=== PATIENT | male | born 1960 | race African-American/Black ===

== ENCOUNTER 2017-04-14 20:29 | Inpatient (IN) | payer OTHER ==
--- NOTE | 2017-04-14 20:42 | PDOC ---
History of Present Illness - General History Source: Patient Exam Limitations: No Limitations - History of Present Illness Initial Comments: 04/14/17 21:27 The patient is a 56 year old male with a significant past medical history of HTN , asthma, who presents to the ED with chest discomfort, and general malaise that began earlier today. 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 Patient states he hasn't been hydrating himself. Patient denies SOB, headache, fever, chills, nausea, vomiting, diarrhea, hematochezia. He denies dysuria, hematuria, frequency. Patient denies smoking cigarettes, drinking alcohol, drug usage. <Yannick Farfan - Last Filed: 04/14/17 21:27> <Cathy Guadalupe - Last Filed: 04/15/17 03:58> - General Stated Complaint: CHEST PAIN Time Seen by Provider: 04/14/17 20:41 Past History <Yannick Farfan - Last Filed: 04/14/17 21:27> - Past Medical History Asthma: Yes HTN: Yes - Immunization History Immunization Up to Date: Yes - Suicide/Smoking/Psychosocial Hx Smoking Status: No Smoking History: Never smoked Number of Cigarettes Smoked Daily: 0 Hx Alcohol Use: Yes Drug/Substance Use Hx: No Substance Use Type: None <Cathy Guadalupe - Last Filed: 04/15/17 03:58> - Past Medical History Allergies/Adverse Reactions: Allergies Allergy/AdvReac Type Severity Reaction Status Date / Time No Known Allergies Allergy Verified 04/14/17 20:56 Home Medications: Ambulatory Orders Amlodipine Besylate [Norvasc -] 10 mg PO DAILY #30 tablet 05/06/16 Review of Systems - Review of Systems Able to Perform ROS?: Yes Comments:: 04/14/17 21:27 GENERAL/CONSTITUTIONAL: + general malaise. No fever or chills. HEAD, EYES, EARS, NOSE AND THROAT: No change in vision. No ear pain or discharge. No sore throat. CARDIOVASCULAR: + chest pain. No shortness of breath. RESPIRATORY: No cough, wheezing, or hemoptysis. GASTROINTESTINAL: No nausea, vomiting, diarrhea or constipation. GENITOURINARY: No dysuria, frequency, or change in urination. MUSCULOSKELETAL: No joint or muscle swelling or pain. No neck or back pain. SKIN: No rash NEUROLOGIC: No headache, vertigo, loss of consciousness, or change in strength/ sensation. ENDOCRINE: No increased thirst. No abnormal weight change. HEMATOLOGIC/LYMPHATIC: No anemia, easy bleeding, or history of blood clots. ALLERGIC/IMMUNOLOGIC: No hives or skin allergy. <Yannick Farfan - Last Filed: 04/14/17 21:27> *Physical Exam - Vital Signs Last Vital Signs Temp Pulse Resp BP Pulse Ox 97.9 F 88 18 134/79 97 04/14/17 20:57 04/14/17 20:57 04/14/17 20:57 04/14/17 20:57 04/14/17 20:57 - Physical Exam Comments: 04/14/17 21:28 GENERAL: Awake, alert, and fully oriented, in no acute distress. Obese. Red and flush. HEAD: No signs of trauma EYES: PERRLA, EOMI, sclera anicteric, conjunctiva clear ENT: Auricles normal inspection, hearing grossly normal, nares patent, oropharynx clear without exudates. Moist mucosa NECK: Normal ROM, supple, no lymphadenopathy, JVD, or masses LUNGS: Breath sounds equal, clear to auscultation bilaterally. No wheezes, and no crackles HEART: irregularly irregular. tachycardia. normal S1 and S2, no murmurs, rubs or gallops ABDOMEN: Soft, nontender, normoactive bowel sounds. No guarding, no rebound. No masses EXTREMITIES: Normal range of motion, no edema. No clubbing or cyanosis. No cords, erythema, or tenderness NEUROLOGICAL: Cranial nerves II through XII grossly intact. Normal speech, normal gait SKIN: Warm, Dry, normal turgor, no rashes or lesions noted. <Yannick Farfan - Last Filed: 04/14/17 21:27> ED Treatment Course - LABORATORY CBC & Chemistry Diagram: 04/14/17 21:05 04/14/17 21:05 - ADDITIONAL ORDERS Additional order review: Laboratory Results 04/14/17 04/14/17 21:05 21:05 PT with INR 12.00 H INR 1.09 Sodium Cancelled Potassium Cancelled Chloride Cancelled Carbon Dioxide Cancelled Anion Gap Cancelled BUN Cancelled Creatinine Cancelled Creat Clearance w eGFR Cancelled Random Glucose Cancelled Calcium Cancelled Total Bilirubin Cancelled AST Cancelled ALT Cancelled Alkaline Phosphatase Cancelled Total Protein Cancelled Albumin Cancelled Total Amylase Cancelled Lipase Cancelled 04/14/17 21:05 RBC 4.93 MCV 87.4 MCHC 33.2 RDW 14.3 MPV 10.6 Neutrophils % 81.4 Lymphocytes % 11.8 D Monocytes % 6.2 Eosinophils % 0.4 D Basophils % 0.2 - Medications Given in the ED: ED Medications Discontinued Medications Generic Name Dose Route Start Last Admin Trade Name Tawanna PRN Reason Stop Dose Admin Diltiazem HCl 10 mg 04/14/17 20:59 04/14/17 21:04 Cardizem Injection - IVPUSH 04/14/17 21:00 10 mg ONCE ONE Administration Sodium Chloride 1,000 ml 04/14/17 21:12 04/14/17 21:04 Normal Saline - IV 04/14/17 21:13 1,000 ml ONCE ONE Administration <Yannick Farfan - Last Filed: 04/14/17 21:27> - LABORATORY CBC & Chemistry Diagram: 04/14/17 21:05 04/14/17 22:11 <Cathy Guadalupe - Last Filed: 04/15/17 03:58> Medical Decision Making - Medical Decision Making 04/14/17 22:43 Pt comes with new onset rapid afib. States that he started to have MSCP today; he was out in the sun 90degree weather, as he is a youth motorcoach driver. Pt states that he has been feeling unwell all weak, and it is unclear how long he has been in afib. He takes amlodipine for HTN 10 mg daily and he is compliant with the meds. He has no fever or chills, no SOB, though he has asthma and he is asking for duoneb. He has clear lungs and he has excellent pulsox and no wheezing. 04/15/17 03:57 Pt will be admitted for rapid afib. He has +trop and elevated CPK I treated with heparin, asa and plavix. Repeat EKG shows no STEMI, Pt will go to telemetry for further eval. <Cathy Guadalupe - Last Filed: 04/15/17 03:58> *DC/Admit/Observation/Transfer - Attestations Scribe Attestion: 04/14/17 21:28. Documentation prepared by Yannick Farfan, acting as medical technologist clinical for Cathy Guadalupe MD. <Yannick Farfan - Last Filed: 04/14/17 21:27> - Discharge Dispostion Admit: Yes <Cathy Guadalupe - Last Filed: 04/15/17 03:58> Diagnosis at time of Disposition: New onset atrial fibrillation - Discharge Dispostion Disposition: HOME Condition at time of disposition: Stable - Patient Instructions
[2017-04-14 20:59] VITALS: TEMP 97.9
[2017-04-14] MEDS ORDERED: dilTIAZem HCL 50 MG/10 ML - 10 ML VIAL IVPUSH ONE (20:59)
[2017-04-14 21:11] LABS: BASOPHIL 0.2 % (0-2.0); EOSINOPHIL 0.4 % (0-4.5); MCHC 33.2 g/dl (32.0-35.9); MEAN CELL VOLUME 87.4 fl (80-96); MEAN PLT VOLUME 10.6 fl (7.5-11.1); NEUTROPHILS 81.4 % (42.8-82.8); PLATELET COUNT 197 K/MM3 (134-434); RDW 14.3 % (11.9-15.9); WHITE BLOOD COUNT 9.9 K/mm3 (4.0-10.0)
[2017-04-14] MEDS ORDERED: SODIUM CHLORIDE 0.9% 500 ML INFUS.BAG IV ONE (21:12)
[2017-04-14 21:21] LABS: INR 1.09 (0.82-1.09)
[2017-04-14] MEDS ORDERED: ALBUTEROL SO4 2.5/IPRATROPIUM 0.5 INH SOL 3 ML VIAL.NEB. NEB ONE (22:15)
[2017-04-14] MEDS ORDERED: ALBUTEROL SO4 0.083% IH SOL 2.5 MG/3 ML VIAL.NEB. NEB ONE (22:21)
[2017-04-14 22:23] LABS: URINE MARIJUANA THC NEGATIVE ng/ml (CUTOFF=50)
[2017-04-14 22:39] LABS: ALBUMIN 3.9 g/dl (3.4-5.0); ANION GAP 8 (8-16); BILIRUBIN,TOTAL 0.5 mg/dL (0.2-1.0); CALCIUM 8.7 mg/dL (8.5-10.1); CO2 25 mmol/L (21-32); GLUCOSE,RANDOM 98 mg/dL (74-106); SGOT/AST 47 U/L (15-37); SGPT/ALT 75 U/L (12-78); TOT PROT 7.5 g/dl (6.4-8.2)
[2017-04-14 22:51] LABS: ALK PHOS 74 U/L (45-117); CPK 1129 IU/L (39-308); TROPONIN I 0.14 ng/ml (0.00-0.05)
[2017-04-14] MEDS ORDERED: HEPARIN NA (PORCINE) 5,000 UNITS/ML 1ML VIAL IVPUSH PRN ×2 (23:10)
[2017-04-14] MEDS ORDERED: ASPIRIN 81 MG CHEWABLE TABLETS PO ONE (23:11)
[2017-04-14] MEDS ORDERED: CLOPIDOGREL BISULFATE 300 MG TABLET PO ONE (23:11)
[2017-04-14] MEDS ORDERED: HEPARIN INFUSION - 500 ML IVPB SCH (23:15)
[2017-04-14] MEDS ORDERED: HEPARIN NA (PORCINE) 5,000 UNITS/ML 1ML VIAL ONE (23:19)
[2017-04-14] MEDS ORDERED: HEPARIN INFUSION - 500 ML IVPB ONE (23:19)
[2017-04-14] MEDS ORDERED: ASPIRIN 81 MG CHEWABLE TABLETS ONE (23:19)
[2017-04-14] MEDS ORDERED: CLOPIDOGREL BISULFATE 300 MG TABLET ONE (23:19)
--- NOTE | 2017-04-14 23:22 | HP ---
CHIEF COMPLAINT: " Dizziness and chest pain " PCP: None HISTORY OF PRESENT ILLNESS: Patient is a 56 year old male with significant Past Medical History of asthma , Hypertension(non compliant with meds), presented to the ED with the chief complaint of dizziness and chest pain. As per the patient, he has been experiencing dizziness for the past several weeks that has gotten worse for the past week. Patient also complaints of chest pain x 2 days, located on the left side, non radiating, 5/10 in intensity, pressure type, associated with palpitation, not associated with tingling or numbness. Patient didn't seek any medical attention and didn't take any medications. 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 His friend mentions he witnessed it, patient didn't hit his head or loose consciousness. EMT arrived at the site and brought him to the ED for further evaluation. Denies sob, cough, abdominal pain, nausea or vomiting. No headache, vertigo or trauma. Bowel/Bladder habit normal. Sleep/Appetite normal. 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 Social History: Smoking: Former smoker, quit 28 years ago Alcohol: Denies Drugs: Denies Family History: Unknown Allergies No Known Allergies Allergy (Verified 04/14/17 20:56) HOME MEDICATIONS: Home Medications Medication Instructions Recorded Amlodipine Besylate [Norvasc -] 10 mg PO DAILY #30 tablet 05/06/16 REVIEW OF SYSTEMS CONSTITUTIONAL: Absent: fever, chills, diaphoresis, generalized weakness, malaise, loss of appetite, weight change HEENT: Absent: rhinorrhea, nasal congestion, throat pain, throat swelling, difficulty swallowing, mouth swelling, ear pain, eye pain, visual changes CARDIOVASCULAR: Absent: chest pain, syncope, palpitations, irregular heart rate, lightheadedness , peripheral edema RESPIRATORY: Absent: cough, shortness of breath, dyspnea with exertion, orthopnea, wheezing, stridor, hemoptysis GASTROINTESTINAL: Absent: abdominal pain, abdominal distension, nausea, vomiting, diarrhea, constipation, melena, hematochezia GENITOURINARY: Absent: dysuria, frequency, urgency, hesitancy, hematuria, flank pain, genital pain MUSCULOSKELETAL: Absent: myalgia, arthralgia, joint swelling, back pain, neck pain SKIN: Absent: rash, itching, pallor HEMATOLOGIC/IMMUNOLOGIC: Absent: easy bleeding, easy bruising, lymphadenopathy, frequent infections ENDOCRINE: Absent: unexplained weight gain, unexplained weight loss, heat intolerance, cold intolerance NEUROLOGIC: Absent: headache, focal weakness or paresthesias, dizziness, unsteady gait, seizure, mental status changes, bladder or bowel incontinence PSYCHIATRIC: Absent: anxiety, depression, suicidal or homicidal ideation, hallucinations. PHYSICAL EXAMINATION Vital Signs - 24 hr 04/14/17 04/14/17 04/14/17 20:35 20:57 22:00 Temperature 97.9 F Pulse Rate 88 Pulse Rate [ 94 H Apical] Respiratory 18 20 Rate Blood Pressure 134/79 Blood Pressure 142/97 [Left Arm] O2 Sat by Pulse 100 97 98 Oximetry (%) GENERAL: Patient is sitting comfortably, Awake, alert, and fully oriented, in no acute distress. HEAD: Normal with no signs of trauma. EYES: EOM intact, no pallor or icterus. No nystagmus. EARS, NOSE, THROAT: Ears normal. Moist mucous membranes. NECK: Supple. LUNGS: Breath sounds equal, clear to auscultation bilaterally. No wheezes, and no crackles. HEART: Irregularly irregular,normal S1 and S2 without murmur. ABDOMEN: Soft, nontender, not distended, normoactive bowel sounds, no guarding, no rebound, no masses. No hepatomegaly or splenomegaly. MUSCULOSKELETAL: Normal range of motion at all joints. No bony deformities or tenderness. No CVA tenderness. UPPER EXTREMITIES: 2+ pulses, warm, well-perfused. No cyanosis. No clubbing. No peripheral edema. LOWER EXTREMITIES: 2+ pulses, warm, well-perfused. No calf tenderness. No peripheral edema. NEUROLOGICAL: No facial droop, power 5/5 in all extremities normal, reflexes intact, Cranial nerves II-XII intact. Normal speech. Gait not observed. PSYCHIATRIC: Cooperative. Good eye contact. Appropriate mood and affect. SKIN: Warm, dry, normal turgor, no rashes or lesions noted, normal capillary refill. Laboratory Results - last 24 hr 04/14/17 04/14/17 04/14/17 21:05 21:05 21:05 WBC 9.9 RBC 4.93 Hgb 14.3 Hct 43.1 MCV 87.4 MCH 29.0 MCHC 33.2 RDW 14.3 Plt Count 197 MPV 10.6 Neutrophils % 81.4 Lymphocytes % 11.8 D Monocytes % 6.2 Eosinophils % 0.4 D Basophils % 0.2 PT with INR 12.00 H INR 1.09 Sodium Cancelled Potassium Cancelled Chloride Cancelled Carbon Dioxide Cancelled Anion Gap Cancelled BUN Cancelled Creatinine Cancelled Creat Clearance w eGFR Cancelled Random Glucose Cancelled Calcium Cancelled Total Bilirubin Cancelled AST Cancelled ALT Cancelled Alkaline Phosphatase Cancelled Creatine Kinase Troponin I Total Protein Cancelled Albumin Cancelled Total Amylase Cancelled Lipase Cancelled Opiates Screen Methadone Screen Barbiturate Screen Phencyclidine Screen Ur Amphetamines Screen MDMA (Ecstasy) Screen Benzodiazepines Screen Cocaine Screen U Marijuana (THC) Screen 04/14/17 04/14/17 22:11 22:11 WBC RBC Hgb Hct MCV MCH MCHC RDW Plt Count MPV Neutrophils % Lymphocytes % Monocytes % Eosinophils % Basophils % PT with INR INR Sodium 140 Potassium 3.9 Chloride 107 Carbon Dioxide 25 Anion Gap 8 BUN 11 D Creatinine 1.0 Creat Clearance w eGFR > 60 Random Glucose 98 D Calcium 8.7 Total Bilirubin 0.5 D AST 47 H D ALT 75 D Alkaline Phosphatase 74 Creatine Kinase 1129 H Troponin I 0.14 H D Total Protein 7.5 Albumin 3.9 Total Amylase Lipase Opiates Screen Negative Methadone Screen Negative Barbiturate Screen Negative Phencyclidine Screen Negative Ur Amphetamines Screen Negative MDMA (Ecstasy) Screen Negative Benzodiazepines Screen Negative Cocaine Screen Negative U Marijuana (THC) Screen Negative ASSESSMENT/PLAN: Patient is a 56 year old male with significant Past Medical History of asthma , Hypertension(non compliant with meds), presented to the ED with the chief complaint of dizziness and chest pain. # New onset atrial fibrillation- now rate controlled presented with chest pain and palpitation EKG done in the ED showed Atrial fibrillation, rate 123 bpm CHADsVASc score of 1, continue Aspirin tomorrow, already received 162 mg of Aspirin in the ED today. Tele/obs Continous cardiac monitoring Cardizem 30mg PO TID for rate control Cardiology consult requested Had NSTEMI in the past, 2015 # Pre-syncope Most likely secondary to dehydration Presented with dizziness since a couple of weeks, was at a football game and nearly fainted. Admitted in Tele/obs IV NS @ 83mls/hr ECHO in the morning TSH, A1c, lipid panel, repeat electrolytes in am. # Elevated troponin likely due to demand ischemia secondary to atrial fibrillation However would like to r/o ACS Troponin 0.14---> repeat at 6am Heparin drip started in the ED, will stop if second troponin is trending down # Hypertension hold Amlodipine 10mg, on cardizem now for rate control # FEN IV NS @ 83mls/hr Electrolytes WNL Sodium controlled diet # Prophylaxis For DVT: Already on Heparin Drip For GI: Not indicated # Code Status: Full code # Dispo: Admitted in Tele/obs. Duration of stay likely 1-2 days. Illness, Investigation and Plan of care explained to the patient. He verbalized understanding. Case seen and discussed with Dr. Suh. Visit type - Emergency Visit Emergency Visit: Yes ED Registration Date: 04/14/17 Care time: The patient presented to the Emergency Department on the above date and was hospitalized for further evaluation of their emergent condition. - New Patient This patient is new to me today: Yes Date on this admission: 04/14/17 - Critical Care Critical Care patient: No
--- NOTE | 2017-04-14 23:41 | PN ---
Teaching Attending Note Name of Resident: Julia Wu ATTENDING PHYSICIAN STATEMENT I saw and evaluated the patient. I reviewed the resident's note and discussed the case with the resident. I agree with the resident's findings and plan as documented. SUBJECTIVE: 56 M who presents with dizziness, has pmhx of Hypertion, hypertensive cardiomyopathy. States he was at a football game today and felt weak and dizzy. States he had chest pain 2 days ago, that did not happen today. Denies any current shortness of breath. No chest pressure. No N/V/D. No current dizziness or lightheadedness. ED Course: Found to be in Afib HR 123 given Cardizem IV, Rate controlled OBJECTIVE: Physical: VS: Vital Signs Period Temp Pulse Resp BP Sys/[place] Pulse Ox Last 24 Hr 97.9 F 88-94 18-20 134-142/79-97 97-100 GEN: NAD, Able to speak full sentences HEENT: NCAT, PERRL, throat without erythema or exudates CARD: IRRR S1, S2 RESP: CTAB ABD: BSX4, NTD to palpation EXT: - C/C/E CBCD WBC 9.9 K/mm3 (4.0-10.0) 04/14/17 21:05 RBC 4.93 M/mm3 (4.00-5.60) 04/14/17 21:05 Hgb 14.3 GM/dL (11.7-16.9) 04/14/17 21:05 Hct 43.1 % (35.4-49) 04/14/17 21:05 MCV 87.4 fl (80-96) 04/14/17 21:05 MCHC 33.2 g/dl (32.0-35.9) 04/14/17 21:05 RDW 14.3 % (11.9-15.9) 04/14/17 21:05 Plt Count 197 K/MM3 (134-434) 04/14/17 21:05 MPV 10.6 fl (7.5-11.1) 04/14/17 21:05 CMP Sodium 140 mmol/L (136-145) 04/14/17 22:11 Potassium 3.9 mmol/L (3.5-5.1) 04/14/17 22:11 Chloride 107 mmol/L (98-107) 04/14/17 22:11 Carbon Dioxide 25 mmol/L (21-32) 04/14/17 22:11 Anion Gap 8 (8-16) 04/14/17 22:11 BUN 11 mg/dL (7-18) D 04/14/17 22:11 Creatinine 1.0 mg/dL (0.7-1.3) 04/14/17 22:11 Creat Clearance w eGFR > 60 (>60) 04/14/17 22:11 Random Glucose 98 mg/dL (74-106) D 04/14/17 22:11 Calcium 8.7 mg/dL (8.5-10.1) 04/14/17 22:11 Total Bilirubin 0.5 mg/dL (0.2-1.0) D 04/14/17 22:11 AST 47 U/L (15-37) H D 04/14/17 22:11 ALT 75 U/L (12-78) D 04/14/17 22:11 Alkaline Phosphatase 74 U/L (45-117) 04/14/17 22:11 Total Protein 7.5 g/dl (6.4-8.2) 04/14/17 22:11 Albumin 3.9 g/dl (3.4-5.0) 04/14/17 22:11 CARDIAC ENZYMES Creatine Kinase 1129 IU/L (39-308) H 04/14/17 22:11 Troponin I 0.14 ng/ml (0.00-0.05) H D 04/14/17 22:11 EKG: Afib 123 CXR: No acute process ASSESSMENT AND PLAN: 56 yo M with HTN who presented with lightheadedness found to be in Afib 1.) Atrial Fibrillation - Rate controlled - C/W Cardizem po - [id number]- NO A/C - Echo - Cards Consult 2.) Troponin Elevation - Most likely demand - Trend Trop/EKG - ASA - Hep. gtt/Plavix given by ED - HEART 2 3.) HTN - Cardizem 4.) Dvt Ppx - Low Risk - SCD Place in Obs-Tele
[2017-04-15] MEDS ORDERED: SODIUM CHLORIDE 1,000 ML IV SCH (00:15)
[2017-04-15 03:52] VITALS: BMI 30.9
[2017-04-15] MEDS ORDERED: dilTIAZem HCL 30 MG TABLET (FP) PO SCH (06:00)
[2017-04-15 06:04] LABS: MCH 28.6 pg (25.7-33.7); MCHC 32.5 g/dl (32.0-35.9); MEAN CELL VOLUME 87.9 fl (80-96); MEAN PLT VOLUME 10.2 fl (7.5-11.1); PLATELET COUNT 195 K/MM3 (134-434); RDW 14.1 % (11.9-15.9); WHITE BLOOD COUNT 8.9 K/mm3 (4.0-10.0)
[2017-04-15 07:17] LABS: ALBUMIN 3.8 g/dl (3.4-5.0); ANION GAP 7 (8-16); CALCIUM 8.7 mg/dL (8.5-10.1); CHOLESTEROL 143 mg/dL (50-200); CO2 27 mmol/L (21-32); CREATININE 0.9 mg/dL (0.7-1.3); GLUCOSE,RANDOM 96 mg/dL (74-106); SGOT/AST 41 U/L (15-37); SGPT/ALT 68 U/L (12-78)
[2017-04-15 07:30] LABS: ALK PHOS 71 U/L (45-117); BILIRUBIN,TOTAL 0.7 mg/dL (0.2-1.0); CPK 1028 IU/L (39-308); TOT PROT 6.9 g/dl (6.4-8.2); TROPONIN I 0.17 ng/ml (0.00-0.05)
[2017-04-15 08:37] VITALS: BP 144/86; PULSE 97
[2017-04-15] MEDS ORDERED: FLU VACCINE QUAD 60 MCG/0.5 ML (MDV 17-18) IM ONE (09:00)
--- NOTE | 2017-04-15 10:02 | CON.CARD ---
Consult Consult Specialty:: Cardiology Referred by:: Hospitalist Medicine Reason for Consultation:: Newly diagnosed afib - History of Present Illness Chief Complaint: Chest pain History of Present Illness: 56 M with h/o hypertension, hypertensive cardiomyopathy, medication noncompliance, presented with dizziness, chest tightness, palpitations denies associated shortness of breath, palpitations, near or true syncope, orthopnea, PND or LE edema, found to be in rapid afib 130s, spontaneously cardioverted after rate-control with cardizem. - History Source History Provided By: Patient Limitations to Obtaining History: No Limitations - Past Medical History Cardio/Vascular: Yes: HTN Pulmonary: Yes: Asthma - Alcohol/Substance Use Hx Alcohol Use: Yes - Smoking History Smoking history: Never smoked Have you smoked in the past 12 months: No Aproximately how many cigarettes per day: 0 Home Medications - Allergies Allergies/Adverse Reactions: Allergies Allergy/AdvReac Type Severity Reaction Status Date / Time No Known Allergies Allergy Verified 04/14/17 20:56 - Home Medications Home Medications: Ambulatory Orders Aspirin [ASA -] 81 mg PO DAILY #30 tab.chew 04/15/17 Diltiazem Cd [Cardizem Cd -] 120 mg PO DAILY #30 tab 04/15/17 Review of Systems - Review of Systems Cardiovascular: reports: Chest Pain, Palpitations Neurological: reports: Dizziness Vital Signs: Vital Signs Temperature 97.9 F 04/15/17 03:48 Pulse Rate 97 H 04/15/17 07:00 Respiratory Rate 20 04/15/17 08:33 Blood Pressure 144/86 04/15/17 07:00 O2 Sat by Pulse Oximetry (%) 99 04/15/17 08:33 Constitutional: Yes: No Distress, Calm Neck: Yes: Supple Respiratory: Yes: Regular, CTA Bilaterally Gastrointestinal: Yes: Normal Bowel Sounds, Soft Cardiovascular: Yes: Tachycardia, Pulse Irregular JVD: No Carotid Bruit: No Heart Sounds: Yes: S1, S2 Murmur: Yes: Systolic Murmur, Grade 1 Edema: No - Other Data Labs, Other Data: CBC, BMP 04/15/17 05:00 04/15/17 05:00 INR, PTT INR 1.09 (0.82-1.09) 04/14/17 21:05 Troponin, BNP 04/15/17 05:00 Troponin I 0.17 H Troponin, BNP 04/15/17 05:00 Troponin I 0.17 H Imaging - Results Chest X-ray: Report Reviewed (NAD) EKG: Report Reviewed (Afib @ 123 min criteria LVH with nonspec T wave changes) Problem List - Problems (1) New onset atrial fibrillation Code(s): I48.91 - UNSPECIFIED ATRIAL FIBRILLATION (2) Asthma Code(s): J45.909 - UNSPECIFIED ASTHMA, UNCOMPLICATED Qualifiers: Asthma severity: mild intermittent Asthma complication type: uncomplicated Qualified Code(s): J45.20 - Mild intermittent asthma, uncomplicated (3) Hypertensive cardiomyopathy Code(s): I11.9 - HYPERTENSIVE HEART DISEASE WITHOUT HEART FAILURE I42.9 - CARDIOMYOPATHY, UNSPECIFIED Qualifiers: Heart failure presence: without heart failure Qualified Code(s): I11.9 - Hypertensive heart disease without heart failure; I43 - Cardiomyopathy in diseases classified elsewhere (4) Subendocardial ischemia Code(s): I24.8 - OTHER FORMS OF ACUTE ISCHEMIC HEART DISEASE Assessment/Plan 1. Paroxysmal atrial fibrillation with RVR -> SR [id number] 2. HTN Cardiomyopathy with subendocardial ischemia 3. Asthma P:1. F/u echocardiogram, cycle trops to document peak 2. Continue Cardizem CD 120 qd with uptitration as tolerated, given low stroke risk score and medication noncompliance history, would continue ASA 81 qd 3. May f/u with me in office 4. Thank you for consultative opportunity
[2017-04-15] MEDS ORDERED: ASPIRIN COATED 81 MG TABLET.EC PO SCH (10:45)
--- NOTE | 2017-04-15 11:04 | EKG ---
Test Reason : Blood Pressure : / mmHG Vent. Rate : 086 BPM Atrial Rate : 441 BPM P-R Int : 000 ms QRS Dur : 098 ms QT Int : 374 ms P-R-T Axes : 000 040 023 degrees QTc Int : 447 ms ATRIAL FIBRILLATION WITH PREMATURE VENTRICULAR OR ABERRANTLY CONDUCTED COMPLEXES MINIMAL VOLTAGE CRITERIA FOR LVH, MAY BE NORMAL VARIANT ABNORMAL ECG WHEN COMPARED WITH ECG OF 04-MAY-2016 20:50, ATRIAL FIBRILLATION HAS REPLACED SINUS RHYTHM VENT. RATE HAS INCREASED BY 35 BPM QT HAS LENGTHENED Confirmed by COOKIE WARREN MD ([id number]) on 04/15/2017 11:03:45 AM Referred By: Confirmed By:COOKIE WARREN MD
--- NOTE | 2017-04-15 14:08 | DS ---
Physical Exam: SUBJECTIVE: Patient seen and examined. He denies chest pain, palpitations, sob. His throat is a little soar. OBJECTIVE: Vital Signs Period Temp Pulse Resp BP Sys/Dockery Pulse Ox Last 24 Hr 97.9 F 68-97 18-20 123-144/64-88 97-99 PE Neuro: alert, awake, cn 2-12intact Pulm: CTAB CV: s1s 2 rrr no mrg Abd: s nt nd + bs Ext: warm, no le edema Laboratory Results - last 24 hr 04/15/17 04/15/17 04/15/17 05:00 05:00 05:00 WBC 8.9 RBC 4.98 Hgb 14.2 Hct 43.8 MCV 87.9 MCH 28.6 MCHC 32.5 RDW 14.1 Plt Count 195 MPV 10.2 PTT (Actin FS) Sodium 140 Potassium 3.8 Chloride 106 Carbon Dioxide 27 Anion Gap 7 L BUN 9 Creatinine 0.9 Creat Clearance w eGFR > 60 Random Glucose 96 Hemoglobin A1c % 6.1 H D Calcium 8.7 Total Bilirubin 0.7 D AST 41 H ALT 68 Alkaline Phosphatase 71 Creatine Kinase 1028 H Creatine Kinase Index 0.5 CK-MB (CK-2) 5.192 H Troponin I 0.17 H Total Protein 6.9 Albumin 3.8 Triglycerides 78 Cholesterol 143 Total LDL Cholesterol 87 D HDL Cholesterol 43 TSH 04/15/17 04/15/17 05:00 08:35 WBC RBC Hgb Hct MCV MCH MCHC RDW Plt Count MPV PTT (Actin FS) 62.9 H D Sodium Potassium Chloride Carbon Dioxide Anion Gap BUN Creatinine Creat Clearance w eGFR Random Glucose Hemoglobin A1c % Calcium Total Bilirubin AST ALT Alkaline Phosphatase Creatine Kinase Creatine Kinase Index CK-MB (CK-2) Troponin I Total Protein Albumin Triglycerides Cholesterol Total LDL Cholesterol HDL Cholesterol TSH 0.91 HOSPITAL COURSE: Date of Admission:04/14/17 Date of Discharge: 04/15/17 Minutes to complete discharge: 37 Discharge Summary Reason For Visit: NEW ONSET ATRIAL FIBRILLATION Current Active Problems New onset atrial fibrillation (Acute) Hospital Course: Initial Hospital Course: Briefly, this 56 year old male with significant pmhx asthma, HTN (non compliant with meds), admitted with pre syncope and chest pain x 2 days, located on the left side, non radiating, 5/10 in intensity, pressure type, associated with palpitations, not associated with tingling or numbness.Patient didn't seek any medical attention and didn't take any medications. Subsequent Hospital Course/Progress Note/DC summary: Patent was found to be in A fib on admission. Placed on heparin gtt and cardizem 30 TID HEART score 1 Patient converted to sinus rhythm HR stable 70-80s on ambulation Home with Cardizem 120mg CD ASA daily Follow up with cardiology and PCP, referrals listed pt and aware and agree to above plan Condition: Stable - Instructions Diet, Activity, Other Instructions: Please return to the ED for any new, persistent, or worsening symptoms. Follow up with your PCP in on scheduled day April 24 2017 Follow up with cardiology [phone] Dr. Moss Stop taking amlodipine Take Cardizem CD 120mg daily Referrals: Carlos Moss MD [Staff Physician] - Disposition: HOME - Home Medications Comprehensive Discharge Medication List: Ambulatory Orders Diltiazem Cd [Cardizem Cd -] 120 mg PO DAILY #30 tab 04/15/17 This patient is new to me today: Yes Date on this admission: 04/15/17 Emergency Visit: Yes ED Registration Date: 04/14/17 Care time: The patient presented to the Emergency Department on the above date and was hospitalized for further evaluation of their emergent condition. Critical Care patient: No - Discharge Referral Referred to [facility] No
--- NOTE | 2017-04-16 14:44 | EKG ---
Test Reason : Blood Pressure : / mmHG Vent. Rate : 123 BPM Atrial Rate : 138 BPM P-R Int : 000 ms QRS Dur : 086 ms QT Int : 324 ms P-R-T Axes : 000 025 009 degrees QTc Int : 463 ms ATRIAL FIBRILLATION WITH RAPID VENTRICULAR RESPONSE MINIMAL VOLTAGE CRITERIA FOR LVH, MAY BE NORMAL VARIANT NONSPECIFIC ST-T ABNORMALITIES ABNORMAL ECG WHEN COMPARED WITH ECG OF 04-MAY-2016 20:50, ATRIAL FIBRILLATION HAS REPLACED SINUS RHYTHM VENT. RATE HAS INCREASED BY 72 BPM T WAVE INVERSION NOW EVIDENT IN INFERIOR LEADS NONSPECIFIC T WAVE ABNORMALITY NOW EVIDENT IN LATERAL LEADS CLINICAL CORRELATION IS RECOMMENDED AND REPEAT EKGGGGAS INDICATED Confirmed by JANINE MCDONALD MD ([id number] on 04/16/2017 2:44:01 PM Referred By: Confirmed By:JANINE MCDONALD MD
== END 2017-04-15 14:20 | disposition home or self-care (01) | DRG 201 ==
LOC: JER 20:29 → JERBED 23:55 → J2W 04-15 03:37
PROVIDERS: ADMIT Internal Medicine; ATTEND Nurse Practitioner Acute Care
DX: I48.91 Unspecified atrial fibrillation (principal); Z91.14 Patient's other noncompliance with medication regimen; Z87.891 Personal history of nicotine dependence; R55 Syncope and collapse; J45.909 Unspecified asthma, uncomplicated; E86.0 Dehydration; I24.8 Other forms of acute ischemic heart disease; I11.9 Hypertensive heart disease without heart failure
CPT/HCPCS: 36415; 71020-TC; 80053; 80061; 80307; 82553; 83036; 83721; 84443; 84484; 85025; 85027; 85610; 85730; 93005; 93010; 93306-TC; 99284-25; 99285-25; J1644

== ENCOUNTER 2018-08-01 13:04 | Inpatient (IN) | payer OTHER ==
--- NOTE | 2018-08-01 13:57 | PDOC ---
History of Present Illness - General Stated Complaint: LIGHTHEADED Time Seen by Provider: 08/01/18 13:56 History Source: Patient - History of Present Illness Initial Comments: 08/01/18 14:13 The patient is a 58 year old male with a PMH of AFib (on A/C) who presents to our ED c/o with 2-3 week of vertigo. Vertigo is intermittent associated with positional changes. As patient felt vertiginous symptoms while laying down and short of breath earlier today decided to come to the ED. The patient denies any chest, palpitations, numbness/tingling. 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 The patient denies abdominal pain, nausea/vomiting, diarrhea/constipation, dysuria/hematuria, fevers/chills. NKDA As per EMR, patient evaluated for dizziness and chest in pain in 2017 at which time he was diagnosed with new onset Atrial Fibrillation. Past History - Past Medical History Allergies/Adverse Reactions: Allergies Allergy/AdvReac Type Severity Reaction Status Date / Time No Known Allergies Allergy Verified 08/01/18 13:18 Home Medications: Ambulatory Orders Aspirin Coated [Ecotrin -] 81 mg PO DAILY #30 tablet.ec 08/06/18 Diltiazem Cd [Cardizem Cd -] 120 mg PO DAILY #30 cap.cd.24h 08/06/18 Losartan 50Mg/Hctz 12.5MG [Hyzaar -] 1 tab PO DAILY #30 tablet 08/06/18 Meclizine HCl [Antivert -] 25 mg PO Q6HPO #30 tablet 08/06/18 Metoprolol Tartrate [Lopressor -] 25 mg PO BID #60 tablet 08/06/18 Asthma: Yes Cardiac Disorders: Yes (a fib in past) COPD: No HTN: Yes - Immunization History Immunization Up to Date: Yes - Suicide/Smoking/Psychosocial Hx Smoking Status: No Smoking History: Smoker current status UNK Have you smoked in the past 12 months: No Number of Cigarettes Smoked Daily: 0 Hx Alcohol Use: Yes Drug/Substance Use Hx: No Substance Use Type: None Hx Substance Use Treatment: No Review of Systems - Review of Systems Constitutional: No: Chills, Fever HEENTM: No: Recent change in vision, Tinnitus Respiratory: Yes: SOB at Rest. No: Cough, Wheezing, Hemoptysis Cardiac (ROS): No: Chest Pain, Lightheadedness, Palpitations, Syncope ABD/GI: No: Constipated, Diarrhea, Nausea, Vomiting *Physical Exam - Vital Signs Last Vital Signs Temp Pulse Resp BP Pulse Ox 98.2 F 57 L 20 173/80 H 96 08/01/18 13:18 08/01/18 13:18 08/01/18 13:18 08/01/18 13:18 08/01/18 13:18 - Physical Exam General Appearance: Yes: Nourished, Appropriately Dressed HEENT: positive: Normal Voice, Hearing Grossly Normal Neck: positive: Trachea midline, Supple Respiratory/Chest: positive: Lungs Clear, Normal Breath Sounds Cardiovascular: positive: S1, S2 Gastrointestinal/Abdominal: positive: Normal Bowel Sounds, Soft Extremity: positive: Normal Capillary Refill, Normal Inspection Integumentary: positive: Normal Color, Dry, Warm Moderate Sedation - Procedure Monitoring Vital Signs: Procedure Monitoring Vital Signs Temperature 98.2 F 08/01/18 13:18 Pulse Rate 57 L 08/01/18 13:18 Respiratory Rate 20 08/01/18 13:18 Blood Pressure 173/80 H 08/01/18 13:18 O2 Sat by Pulse Oximetry (%) 96 08/01/18 13:18 Heart Score/ECG Review - ECG Impressions Comment:: 08/06/18 16:35 Sinus Bradycardia (HR 57) with LVH, no TWI/JANEL/STD; non-ischemic ECG ED Treatment Course - LABORATORY CBC & Chemistry Diagram: 08/02/18 06:30 08/04/18 17:00 Medical Decision Making - Medical Decision Making 08/01/18 14:14 58 year old male with vertigo acutely associated with shortness of breath. Hypertensive @ triage (173/80), mild Bradycardia (HR 57); repeat BP at bedside 140's/70's). Frontal diagnosis: r/o ACS, CVA/TIA, arrthymia. Consider BPPV however less likely as Florence Hallpike testing negative. Will obtain Head CT to r /o CVA/TIA as well as EKG to r/o arrhythmia and Troponin to r/o ACS. EKG non-ischemic as documented in EKG section of EMR 08/01/18 16:[address] negative. Labs pending. No vertiginous symptoms while in ED, however continues to c/o subjective dyspnea. Troponin 0.09 Patient reassessed @ bedside denies chest pain No EKG changes, less likely ACS, however will admit patient for further cardiac evaluation. Case d/w Dr. Erickson - patient admitted to inpatient telemetry. Clinical Impression: Elevated Troponin 2/2 to ischemic demand; consider vertiginous symptoms 2/2 to AFib 0 *DC/Admit/Observation/Transfer Diagnosis at time of Disposition: Elevated troponin - Discharge Dispostion Disposition: HOME Condition at time of disposition: Good - Prescriptions - Referrals - Patient Instructions - Post Discharge Activity
--- NOTE | 2018-08-01 14:18 | PDOC ---
Attending Attestation - Resident Resident Name: Zachariah Gundersonica - ED Attending Attestation I have performed the following: I have examined & evaluated the patient, The case was reviewed & discussed with the resident, I agree w/resident's findings & plan, Exceptions are as noted - HPI HPI: 08/01/18 14:18 Mr Hyde is a 58 yo M who presents to the ER with a complaint of vertigo PMH includes Afib on anticoagulation For the past few weeks he has had vertigo with changes in position Today, while laying down, he developed severe vertigo No chest pain, palpitations, numbness or tingling 08/01/18 15:44 - Physicial Exam PE: 08/01/18 14:19 GENERAL: The patient is in no acute distress. HEAD: Normal with no signs of trauma. EYES: PERRLA, EOMI, sclera anicteric, conjunctiva clear. ENT: Ears normal, nares patent, oropharynx clear without exudates. Moist mucous membranes. NECK: Normal range of motion, supple without lymphadenopathy, JVD, or masses. LUNGS: Breath sounds equal, clear to auscultation bilaterally. No wheezes, and no crackles. HEART:Regular rate and rhythm, normal S1 and S2 without murmur, rub or gallop. ABDOMEN: Soft, nontender, normoactive bowel sounds. No guarding, no rebound. No masses palpable. EXTREMITIES: Normal range of motion, no edema. No clubbing or cyanosis. No erythema, or tenderness. NEUROLOGICAL: Cranial nerves II through XII grossly intact. Normal speech. No focal neurological deficits. MUSCULOSKELETAL: Back non-tender to palpation, no CVA tenderness SKIN: Warm, Dry, normal turgor, no rashes or lesions noted. - Medical Decision Making 08/01/18 17:06 Laboratory Tests 08/01/18 08/01/18 08/01/18 14:25 14:25 14:25 WBC 8.3 Hgb 15.0 Hct 43.4 Plt Count 200 INR 1.00 BUN 18 Creatinine 1.2 Creatine Kinase 550 H CK-MB (CK-2) 3.9 H Troponin I 0.09 H 08/02/18 18:31 Trop is elevated Will plan to admit to hospitalist service
[2018-08-01 14:39] LABS: BASO % 0.4 % (0-2.0); EOS % 2.2 % (0-4.5); HEMATOCRIT 43.4 % (35.4-49); MCH 29.9 pg (25.7-33.7); MCHC 34.5 g/dl (32.0-35.9); MEAN CELL VOLUME 86.5 fl (80-96); MEAN PLT VOLUME 10.2 fl (7.5-11.1); MONO % 6.9 % (3.8-10.2); NEUT % 75.5 % (42.8-82.8); PLATELET COUNT 200 K/MM3 (134-434); RBC 5.02 M/mm3 (4.00-5.60); RDW 14.3 % (11.9-15.9); WHITE BLOOD COUNT 8.3 K/mm3 (4.0-10.0)
[2018-08-01 14:52] LABS: PROTHROMBIN TIME (PATIENT) 11.8 SEC (9.7-13.0)
[2018-08-01 14:55] LABS: ACTIVATED PTT 33.1 SECONDS (25.2-36.5)
[2018-08-01 15:08] LABS: ALBUMIN 3.9 g/dl (3.4-5.0); ALK PHOS 77 U/L (45-117); ANION GAP 8 MMOL/L (8-16); BILIRUBIN,TOTAL 0.5 mg/dL (0.2-1); BLOOD UREA NITROGEN 18 mg/dL (7-18); CALCIUM 8.9 mg/dL (8.5-10.1); CHLORIDE 104 mmol/L (98-107); CO2 28 mmol/L (21-32); CREATININE 1.2 mg/dL (0.55-1.3); GLUCOSE,RANDOM 117 mg/dL (74-106); POTASSIUM 3.6 mmol/L (3.5-5.1); SGOT/AST 30 U/L (15-37); SGPT/ALT 48 U/L (13-61); SODIUM 140 mmol/L (136-145); TOT PROT 7.2 g/dl (6.4-8.2)
[2018-08-01] MEDS ORDERED: ALBUTEROL SO4 2.5/IPRATROPIUM 0.5 INH SOL 3 ML VIAL.NEB. NEB ONE ×3 (19:04→23:26)
--- NOTE | 2018-08-01 19:04 | HP ---
CHIEF COMPLAINT: PCP: HISTORY OF PRESENT ILLNESS: Called patient's pharmacy @ [facility]: Patient is on Losartan/Hctz 50mg/12.5mg daily, Cartia XT 120mg (cardizem), not on eliquis. ER course was notable for: (1) trop 0.06 (2) negative head ct (3) Recent Travel: PAST MEDICAL HISTORY: PAST SURGICAL HISTORY: Social History: Smoking: Alcohol: Drugs: Family History: Allergies No Known Allergies Allergy (Verified 08/01/18 13:18) HOME MEDICATIONS: Home Medications Medication Instructions Recorded Unobtainable 08/01/18 REVIEW OF SYSTEMS CONSTITUTIONAL: Absent: fever, chills, diaphoresis, generalized weakness, malaise, loss of appetite, weight change HEENT: Absent: rhinorrhea, nasal congestion, throat pain, throat swelling, difficulty swallowing, mouth swelling, ear pain, eye pain, visual changes CARDIOVASCULAR: Absent: chest pain, syncope, palpitations, irregular heart rate, lightheadedness , peripheral edema RESPIRATORY: Absent: cough, shortness of breath, dyspnea with exertion, orthopnea, wheezing, stridor, hemoptysis GASTROINTESTINAL: Absent: abdominal pain, abdominal distension, nausea, vomiting, diarrhea, constipation, melena, hematochezia GENITOURINARY: Absent: dysuria, frequency, urgency, hesitancy, hematuria, flank pain, genital pain MUSCULOSKELETAL: Absent: myalgia, arthralgia, joint swelling, back pain, neck pain SKIN: Absent: rash, itching, pallor HEMATOLOGIC/IMMUNOLOGIC: Absent: easy bleeding, easy bruising, lymphadenopathy, frequent infections ENDOCRINE: Absent: unexplained weight gain, unexplained weight loss, heat intolerance, cold intolerance NEUROLOGIC: Absent: headache, focal weakness or paresthesias, dizziness, unsteady gait, seizure, mental status changes, bladder or bowel incontinence PSYCHIATRIC: Absent: anxiety, depression, suicidal or homicidal ideation, hallucinations. PHYSICAL EXAMINATION Vital Signs - 24 hr 08/01/18 08/01/18 13:18 14:33 Temperature 98.2 F Pulse Rate 57 L Pulse Rate [ 57 L Apical] Respiratory 20 17 Rate Blood Pressure 173/80 H Blood Pressure 147/70 [Left Arm] O2 Sat by Pulse 96 98 Oximetry (%) GENERAL: Awake, alert, and fully oriented, in no acute distress. HEAD: Normal with no signs of trauma. EYES: Pupils equal, round and reactive to light, extraocular movements intact, sclera anicteric, conjunctiva clear. No lid lag. EARS, NOSE, THROAT: Ears normal, nares patent, oropharynx clear without exudates. Moist mucous membranes. NECK: Normal range of motion, supple without lymphadenopathy, JVD, or masses. LUNGS: Breath sounds equal, clear to auscultation bilaterally. No wheezes, and no crackles. No accessory muscle use. HEART: Regular rate and rhythm, normal S1 and S2 without murmur, rub or gallop. ABDOMEN: Soft, nontender, not distended, normoactive bowel sounds, no guarding, no rebound, no masses. No hepatomegaly or splenomegaly. MUSCULOSKELETAL: Normal range of motion at all joints. No bony deformities or tenderness. No CVA tenderness. UPPER EXTREMITIES: 2+ pulses, warm, well-perfused. No cyanosis. No clubbing. No peripheral edema. LOWER EXTREMITIES: 2+ pulses, warm, well-perfused. No calf tenderness. No peripheral edema. NEUROLOGICAL: Cranial nerves II-XII intact. Normal speech. Normal gait. PSYCHIATRIC: Cooperative. Good eye contact. Appropriate mood and affect. SKIN: Warm, dry, normal turgor, no rashes or lesions noted, normal capillary refill. Laboratory Results - last 24 hr 08/01/18 08/01/18 08/01/18 14:25 14:25 14:25 WBC 8.3 RBC 5.02 Hgb 15.0 Hct 43.4 MCV 86.5 MCH 29.9 MCHC 34.5 RDW 14.3 Plt Count 200 MPV 10.2 Absolute Neuts (auto) 6.3 Neutrophils % 75.5 Lymphocytes % 15.0 D Monocytes % 6.9 Eosinophils % 2.2 D Basophils % 0.4 Nucleated RBC % 0 PT with INR 11.80 INR 1.00 PTT (Actin FS) 33.1 Sodium 140 Potassium 3.6 Chloride 104 Carbon Dioxide 28 Anion Gap 8 BUN 18 Creatinine 1.2 Creat Clearance w eGFR > 60 Random Glucose 117 H Calcium 8.9 Total Bilirubin 0.5 AST 30 ALT 48 Alkaline Phosphatase 77 Creatine Kinase 550 H Creatine Kinase Index 0.7 CK-MB (CK-2) 3.9 H Troponin I 0.09 H B-Natriuretic Peptide 37.0 Total Protein 7.2 Albumin 3.9 ASSESSMENT/PLAN:
[2018-08-01] MEDS ORDERED: SODIUM CHLORIDE 1,000 ML IV SCH (19:15)
[2018-08-01] MEDS: LOSARTAN 50MG/HCTZ 12.5MG 1 TAB (FP) PO SCH (20:48)
[2018-08-01] MEDS: ALBUTEROL SO4 2.5/IPRATROPIUM 0.5 INH SOL 3 ML VIAL.NEB. NEB PRN (23:40)
[2018-08-02] MEDS ORDERED: DEXTROSE 5%-0.45% SALINE 1,000 ML IV SCH (02:30)
[2018-08-02 03:40] VITALS: BMI 32.5
[2018-08-02] MEDS: MECLIZINE HCL 25 MG TABLET (FP) PO SCH ×3 (07:08→17:30)
[2018-08-02 07:50] LABS: BASO % 0.3 % (0-2.0); EOS % 2.6 % (0-4.5); HEMATOCRIT 48.3 % (35.4-49); HEMOGLOBIN 15.3 GM/dL (11.7-16.9); MCH 27.9 pg (25.7-33.7); MCHC 31.6 g/dl (32.0-35.9); MEAN CELL VOLUME 88.3 fl (80-96); MEAN PLT VOLUME 10.2 fl (7.5-11.1); MONO % 7.3 % (3.8-10.2); NEUT % 66.8 % (42.8-82.8); PLATELET COUNT 196 K/MM3 (134-434); RBC 5.47 M/mm3 (4.00-5.60); RDW 14.6 % (11.9-15.9); WHITE BLOOD COUNT 8.5 K/mm3 (4.0-10.0)
[2018-08-02 08:33] LABS: ALBUMIN 3.7 g/dl (3.4-5.0); ALK PHOS 76 U/L (45-117); ANION GAP 11 MMOL/L (8-16); BILIRUBIN,TOTAL 0.4 mg/dL (0.2-1); BLOOD UREA NITROGEN 15 mg/dL (7-18); CALCIUM 8.7 mg/dL (8.5-10.1); CHLORIDE 103 mmol/L (98-107); CO2 24 mmol/L (21-32); CREATININE 0.9 mg/dL (0.55-1.3); GLUCOSE,RANDOM 103 mg/dL (74-106); POTASSIUM 3.7 mmol/L (3.5-5.1); SGOT/AST 27 U/L (15-37); SGPT/ALT 46 U/L (13-61); SODIUM 138 mmol/L (136-145); TOT PROT 7.1 g/dl (6.4-8.2)
--- NOTE | 2018-08-02 08:42 | EKG ---
Test Reason : Blood Pressure : / mmHG Vent. Rate : 057 BPM Atrial Rate : 057 BPM P-R Int : 170 ms QRS Dur : 100 ms QT Int : 412 ms P-R-T Axes : 066 044 049 degrees QTc Int : 401 ms SINUS BRADYCARDIA POSSIBLE LEFT ATRIAL ENLARGEMENT LEFT VENTRICULAR HYPERTROPHY ABNORMAL ECG WHEN COMPARED WITH ECG OF 15-APR-2017 00:42, SINUS RHYTHM HAS REPLACED ATRIAL FIBRILLATION VENT. RATE HAS DECREASED BY 29 BPM Confirmed by LUPE CANDELARIO, SANDRA ([id number]) on 08/02/2018 8:42:01 AM Referred By: Confirmed By:SANDRA ANDRADE MD
[2018-08-02] MEDS ORDERED: PT OWN MED DRAWER 7, Y5N ONE ×2 (09:07→09:45)
--- NOTE | 2018-08-02 09:16 | CON.CARD ---
Consult Consult Specialty:: Cardiology for dr. Montejo - History of Present Illness History of Present Illness: Mr Hyde is a 58 yo M who presents to the ER with a complaint of vertigo PMH includes Afib on anticoagulation For the past few weeks he has had vertigo with changes in position Today, while laying down, he developed severe vertigo No chest pain, palpitations, numbness or tingling - History Source History Provided By: Patient, Medical Record - Past Medical History Cardio/Vascular: Yes: AFIB, HTN Pulmonary: Yes: Asthma - Alcohol/Substance Use Hx Alcohol Use: Yes - Smoking History Smoking history: Smoker current status UNK Have you smoked in the past 12 months: No Aproximately how many cigarettes per day: 0 Home Medications - Allergies Allergies/Adverse Reactions: Allergies Allergy/AdvReac Type Severity Reaction Status Date / Time No Known Allergies Allergy Verified 08/01/18 13:18 - Home Medications Home Medications: Ambulatory Orders Unobtainable 08/01/18 Review of Systems - Review of Systems Constitutional: reports: No Symptoms Eyes: reports: No Symptoms HENT: reports: No Symptoms Neck: reports: No Symptoms Cardiovascular: reports: No Symptoms Gastrointestinal: reports: No Symptoms Genitourinary: reports: No Symptoms Breasts: reports: No Symptoms Reported Musculoskeletal: reports: No Symptoms Integumentary: reports: No Symptoms Neurological: reports: Other (vertigo) Endocrine: reports: No Symptoms Hematology/Lymphatic: reports: No Symptoms Psychiatric: reports: No Symptoms Vital Signs: Vital Signs Temperature 97.2 F L 08/02/18 07:00 Pulse Rate 114 H 08/02/18 07:00 Respiratory Rate 20 08/02/18 07:00 Blood Pressure 110/72 08/02/18 07:00 O2 Sat by Pulse Oximetry (%) 98 08/02/18 06:00 Constitutional: Yes: Well Nourished, No Distress, Calm Eyes: Yes: WNL, Conjunctiva Clear, EOM Intact HENT: Yes: WNL, Atraumatic, Normocephalic Neck: Yes: WNL, Supple, Trachea Midline Respiratory: Yes: WNL, Regular, CTA Bilaterally Gastrointestinal: Yes: WNL, Normal Bowel Sounds Renal/: Yes: WNL Cardiovascular: Yes: Pulse Irregular Musculoskeletal: Yes: WNL Extremities: Yes: WNL Integumentary: Yes: WNL Neurological: Yes: WNL, Alert, Oriented ...Motor Strength: WNL Psychiatric: Yes: WNL, Alert, Oriented - Other Data Labs, Other Data: CBC, BMP 08/02/18 06:30 08/02/18 06:30 INR, PTT INR 1.00 (0.83-1.09) 08/01/18 14:25 Troponin, BNP 08/01/18 08/02/18 14:25 02:44 Troponin I 0.09 H 0.08 H B-Natriuretic Peptide 37.0 Troponin, BNP 08/01/18 08/02/18 14:25 02:44 Troponin I 0.09 H 0.08 H B-Natriuretic Peptide 37.0 Laboratory Tests 08/01/18 08/01/18 08/01/18 14:25 14:25 14:25 WBC 8.3 RBC 5.02 Hgb 15.0 Hct 43.4 MCV 86.5 MCH 29.9 MCHC 34.5 RDW 14.3 Plt Count 200 MPV 10.2 Absolute Neuts (auto) 6.3 Neutrophils % 75.5 Lymphocytes % 15.0 D Monocytes % 6.9 Eosinophils % 2.2 D Basophils % 0.4 Nucleated RBC % 0 PT with INR 11.80 INR 1.00 PTT (Actin FS) 33.1 Sodium 140 Potassium 3.6 Chloride 104 Carbon Dioxide 28 Anion Gap 8 BUN 18 Creatinine 1.2 Creat Clearance w eGFR > 60 Random Glucose 117 H Calcium 8.9 Total Bilirubin 0.5 AST 30 ALT 48 Alkaline Phosphatase 77 Creatine Kinase 550 H Creatine Kinase Index 0.7 CK-MB (CK-2) 3.9 H Troponin I 0.09 H B-Natriuretic Peptide 37.0 Total Protein 7.2 Albumin 3.9 TSH 08/02/18 08/02/18 08/02/18 02:44 06:30 06:30 WBC 8.5 RBC 5.47 Hgb 15.3 Hct 48.3 MCV 88.3 MCH 27.9 MCHC 31.6 L RDW 14.6 Plt Count 196 MPV 10.2 Absolute Neuts (auto) 5.7 Neutrophils % 66.8 Lymphocytes % 23.0 D Monocytes % 7.3 Eosinophils % 2.6 Basophils % 0.3 Nucleated RBC % 0 PT with INR INR PTT (Actin FS) Sodium 138 Potassium 3.7 Chloride 103 Carbon Dioxide 24 Anion Gap 11 BUN 15 Creatinine 0.9 Creat Clearance w eGFR > 60 Random Glucose 103 Calcium 8.7 Total Bilirubin 0.4 AST 27 ALT 46 Alkaline Phosphatase 76 Creatine Kinase 478 H Creatine Kinase Index 0.6 CK-MB (CK-2) 3.2 Troponin I 0.08 H B-Natriuretic Peptide Total Protein 7.1 Albumin 3.7 TSH 0.67 D Imaging - Results Chest X-ray: Image Reviewed (no i/e) EKG: Image Reviewed (s bradycardia rep abn) Problem List - Problems (1) Asthma Code(s): J45.909 - UNSPECIFIED ASTHMA, UNCOMPLICATED Qualifiers: Asthma severity: mild intermittent Asthma complication type: uncomplicated Qualified Code(s): J45.20 - Mild intermittent asthma, uncomplicated (2) Atypical chest pain Code(s): R07.89 - OTHER CHEST PAIN (3) Bronchitis Code(s): J40 - BRONCHITIS, NOT SPECIFIED ACUTE OR CHRONIC (4) Chest pain, rule out acute myocardial infarction Code(s): R07.9 - CHEST PAIN, UNSPECIFIED (5) Elevated CK-MB level Code(s): R74.8 - ABNORMAL LEVELS OF OTHER SERUM ENZYMES (6) Elevated troponin I level Code(s): R79.89 - OTHER SPECIFIED ABNORMAL FINDINGS OF BLOOD CHEMISTRY (7) Hypertensive cardiomyopathy Code(s): I11.9 - HYPERTENSIVE HEART DISEASE WITHOUT HEART FAILURE; I42.9 - CARDIOMYOPATHY, UNSPECIFIED Qualifiers: Heart failure presence: without heart failure Qualified Code(s): I11.9 - Hypertensive heart disease without heart failure (8) New onset atrial fibrillation Code(s): I48.91 - UNSPECIFIED ATRIAL FIBRILLATION (9) Subendocardial ischemia Code(s): I24.8 - OTHER FORMS OF ACUTE ISCHEMIC HEART DISEASE Assessment/Plan paf CHADSVASC2 score1 s. pepito at admission now in af on tele EKG pending htn vertigo noncomplience Plan restart cardizem cd 120 telemetry echo restart ac -not clear what patient is on as the outpatient. Coverage dr. Montejo
[2018-08-02] MEDS: HEPARIN NA (PORCINE) 5,000 UNITS/ML 1ML VIAL SQ SCH ×2 (09:54→22:19)
[2018-08-02] MEDS: ASPIRIN COATED 81 MG TABLET.EC PO SCH (09:54)
[2018-08-02] MEDS: LOSARTAN 50MG/HCTZ 12.5MG 1 TAB (FP) PO SCH (10:28)
--- NOTE | 2018-08-02 10:30 | EKG ---
Test Reason : Blood Pressure : / mmHG Vent. Rate : 069 BPM Atrial Rate : 069 BPM P-R Int : 174 ms QRS Dur : 098 ms QT Int : 378 ms P-R-T Axes : 054 031 036 degrees QTc Int : 405 ms NORMAL SINUS RHYTHM MINIMAL VOLTAGE CRITERIA FOR LVH, MAY BE NORMAL VARIANT NONSPECIFIC T WAVE ABNORMALITY ABNORMAL ECG WHEN COMPARED WITH ECG OF 01-AUG-2018 13:20, NONSPECIFIC T WAVE ABNORMALITY, WORSE IN LATERAL LEADS Confirmed by LUPE CANDELARIO, SANDRA ([id number]) on 08/02/2018 10:29:45 AM Referred By: Confirmed By:SANDRA ANDRADE MD
--- NOTE | 2018-08-02 12:08 | CONSULT ---
Consult - text type - Consultation Consultation Note: Neurology History of Present Illness: 58 yo M who presents to the ER with a complaint of vertigo for several weeks prior to admission. Medical history includes PMH, AFib. On day of admission, patient states he ad severe episode of vertigo while laying down. Patient denies chest pain, palpitations numbness or tingling. Admitted for further mgmt , CT head reviewed and without acute changes. Carotid doppler completed, awaiting report. Does report he has some dizzyiness this AM. Has been started on Meclezine and getting IV fluids at bedside. - Past Medical History Cardio/Vascular: Yes: AFIB, HTN Pulmonary: Yes: Asthma - Alcohol/Substance Use Hx Alcohol Use: Yes - Smoking History Smoking history: Smoker current status UNK Have you smoked in the past 12 months: No Aproximately how many cigarettes per day: 0 Home Medication List Medication Instructions Recorded Confirmed Type Unobtainable 08/01/18 08/01/18 History Active Medications Albuterol/Ipratropium (Duoneb -) 1 amp NEB Q6H PRN PRN Reason: SHORTNESS OF BREATH Last Admin: 08/01/18 23:40 Dose: 1 amp Aspirin (Ecotrin -) 81 mg PO DAILY [facility] Last Admin: 08/02/18 09:54 Dose: 81 mg Diltiazem HCl (Cardizem Cd -) 120 mg PO DAILY [facility] Last Admin: 08/02/18 09:54 Dose: 120 mg HCTZ/Losartan Potassium (Hyzaar -) 1 tab PO DAILY [facility] Last Admin: 08/02/18 10:28 Dose: 1 tab Heparin Sodium (Porcine) (Heparin -) 5,000 unit SQ BID [facility] Last Admin: 08/02/18 09:54 Dose: 5,000 unit Sodium Chloride (Normal Saline -) 1,000 mls @ 50 mls/hr IV ASDIR JADYN Stop: 08/02/18 19:04 Last Admin: 08/01/18 23:40 Dose: 50 mls/hr Dextrose/Sodium Chloride (D5-1/2ns -) 1,000 mls @ 75 mls/hr IV ASDIR JADYN Last Admin: 08/02/18 02:47 Dose: 75 mls/hr Meclizine HCl (Antivert -) 25 mg PO Q6HPO [facility] Last Admin: 08/02/18 07:08 Dose: 25 mg Allergies Allergy/AdvReac Type Severity Reaction Status Date / Time No Known Allergies Allergy Verified 08/01/18 13:18 - Physicial Exam Vital Signs Temperature 97.8 F 08/02/18 09:00 Pulse Rate 145 H 08/02/18 09:00 Respiratory Rate 20 08/02/18 10:00 Blood Pressure 123/66 08/02/18 09:00 O2 Sat by Pulse Oximetry (%) 97 08/02/18 10:00 GENERAL: The patient is in no acute distress. HEAD: Normal with no signs of trauma. EYES: PERRLA, EOMI, sclera anicteric, conjunctiva clear. ENT: Ears normal, nares patent, oropharynx clear without exudates. Moist mucous membranes. NECK: Normal range of motion, supple without lymphadenopathy, JVD, or masses. LUNGS: Breath sounds equal, clear to auscultation bilaterally. No wheezes, and no crackles. HEART:Regular rate and rhythm, normal S1 and S2 without murmur, rub or gallop. ABDOMEN: Soft, nontender, normoactive bowel sounds. No guarding, no rebound. No masses palpable. EXTREMITIES: Normal range of motion, no edema. No clubbing or cyanosis. No erythema, or tenderness. NEUROLOGICAL: Cranial nerves II through XII grossly intact. Normal speech. No focal neurological deficits. MUSCULOSKELETAL: Back non-tender to palpation, no CVA tenderness SKIN: Warm, Dry, normal turgor, no rashes or lesions noted. Laboratory Value CBCD WBC 8.5 K/mm3 (4.0-10.0) 08/02/18 06:30 RBC 5.47 M/mm3 (4.00-5.60) 08/02/18 06:30 Hgb 15.3 GM/dL (11.7-16.9) 08/02/18 06:30 Hct 48.3 % (35.4-49) 08/02/18 06:30 MCV 88.3 fl (80-96) 08/02/18 06:30 MCHC 31.6 g/dl (32.0-35.9) L 08/02/18 06:30 RDW 14.6 % (11.9-15.9) 08/02/18 06:30 Plt Count 196 K/MM3 (134-434) 08/02/18 06:30 MPV 10.2 fl (7.5-11.1) 08/02/18 06:30 CMP Sodium 138 mmol/L (136-145) 08/02/18 06:30 Potassium 3.7 mmol/L (3.5-5.1) 08/02/18 06:30 Chloride 103 mmol/L (98-107) 08/02/18 06:30 Carbon Dioxide 24 mmol/L (21-32) 08/02/18 06:30 Anion Gap 11 MMOL/L (8-16) 08/02/18 06:30 BUN 15 mg/dL (7-18) 08/02/18 06:30 Creatinine 0.9 mg/dL (0.55-1.3) 08/02/18 06:30 Creat Clearance w eGFR > 60 (>60) 08/02/18 06:30 Random Glucose 103 mg/dL (74-106) 08/02/18 06:30 Calcium 8.7 mg/dL (8.5-10.1) 08/02/18 06:30 Total Bilirubin 0.4 mg/dL (0.2-1) 08/02/18 06:30 AST 27 U/L (15-37) 08/02/18 06:30 ALT 46 U/L (13-61) 08/02/18 06:30 Alkaline Phosphatase 76 U/L (45-117) 08/02/18 06:30 Total Protein 7.1 g/dl (6.4-8.2) 08/02/18 06:30 Albumin 3.7 g/dl (3.4-5.0) 08/02/18 06:30 CARDIAC ENZYMES Creatine Kinase 478 IU/L (26-308) H 08/02/18 02:44 Troponin I 0.08 ng/ml (0.00-0.05) H 08/02/18 02:44 Diagnostic: Head CT - completed and reviewed Carotid Doppler - completed, awaiting report Plan/Assessment 58 yo M who presents to the ER with a complaint of vertigo for several weeks prior to admission. Medical history includes PMH, AFib. On day of admission, patient states he ad severe episode of vertigo while laying down. Patient denies chest pain, palpitations numbness or tingling. Admitted for further mgmt , CT head reviewed and without acute changes. Carotid doppler completed, awaiting report. Does report he has some dizzyiness this AM. Has been started on Meclezine and getting IV fluids at bedside. Neurologically stable appearing, does not require MRI at this time. Continue cardiac workup and Afib optimization. Maintain hydration. Monitor blood pressure, maintain normotensive range. DVT ppx.
--- NOTE | 2018-08-02 18:46 | HP ---
Admitting History and Physical - Primary Care Physician PCP: Jeanine Erickson - Admission Chief Complaint: VERTIGO History of Present Illness: 58 yo M who presents to the ER with a complaint of vertigo for several weeks prior to admission. Medical history includes PMH, AFib. On day of admission, patient states he ad severe episode of vertigo while laying down. Patient denies chest pain, palpitations numbness or tingling. Admitted for further mgmt , CT head reviewed and without acute changes. Carotid doppler completed, awaiting report. still dizzy. - Past Medical History Cardiovascular: Yes: AFIB, HTN Pulmonary: Yes: Asthma - Smoking History Smoking history: Smoker current status UNK Have you smoked in the past 12 months: No Aproximately how many cigarettes per day: 0 - Alcohol/Substance Use Hx Alcohol Use: Yes Home Medications - Allergies Allergies/Adverse Reactions: Allergies Allergy/AdvReac Type Severity Reaction Status Date / Time No Known Allergies Allergy Verified 08/01/18 13:18 - Home Medications Home Medications: Ambulatory Orders Unobtainable 08/01/18 Physical Examination Vital Signs: Vital Signs Temperature 97.4 F L 08/02/18 13:50 Pulse Rate 72 08/02/18 13:50 Respiratory Rate 20 08/02/18 13:50 Blood Pressure 170/79 08/02/18 13:50 O2 Sat by Pulse Oximetry (%) 97 08/02/18 10:00 Constitutional: Yes: No Distress HENT: Yes: Atraumatic Neck: Yes: Supple Cardiovascular: Yes: Regular Rate and Rhythm Respiratory: Yes: CTA Bilaterally Gastrointestinal: Yes: Normal Bowel Sounds Extremities: Yes: WNL Edema: No Peripheral Pulses WNL: Yes Neurological: Yes: Alert, Oriented Labs: CBC, BMP 08/02/18 06:30 08/02/18 06:30 Imaging - Results Chest X-ray: Report Reviewed Cat Scan: Report Reviewed EKG: Report Reviewed Problem List - Problems (1) Vertigo Assessment/Plan: on meclizine better today Code(s): R42 - DIZZINESS AND GIDDINESS (2) Elevated troponin I level Assessment/Plan: cardio on board who doesnt believe there is ischemia will check another level to see the trend Code(s): R79.89 - OTHER SPECIFIED ABNORMAL FINDINGS OF BLOOD CHEMISTRY Assessment/Plan Laboratory Tests 08/01/18 08/01/18 08/01/18 14:25 14:25 14:25 WBC 8.3 RBC 5.02 Hgb 15.0 Hct 43.4 MCV 86.5 MCH 29.9 MCHC 34.5 RDW 14.3 Plt Count 200 MPV 10.2 Absolute Neuts (auto) 6.3 Neutrophils % 75.5 Lymphocytes % 15.0 D Monocytes % 6.9 Eosinophils % 2.2 D Basophils % 0.4 Nucleated RBC % 0 PT with INR 11.80 INR 1.00 PTT (Actin FS) 33.1 Sodium 140 Potassium 3.6 Chloride 104 Carbon Dioxide 28 Anion Gap 8 BUN 18 Creatinine 1.2 Creat Clearance w eGFR > 60 Random Glucose 117 H Calcium 8.9 Total Bilirubin 0.5 AST 30 ALT 48 Alkaline Phosphatase 77 Creatine Kinase 550 H Creatine Kinase Index 0.7 CK-MB (CK-2) 3.9 H Troponin I 0.09 H B-Natriuretic Peptide 37.0 Total Protein 7.2 Albumin 3.9 TSH 08/02/18 08/02/18 08/02/18 02:44 06:30 06:30 WBC 8.5 RBC 5.47 Hgb 15.3 Hct 48.3 MCV 88.3 MCH 27.9 MCHC 31.6 L RDW 14.6 Plt Count 196 MPV 10.2 Absolute Neuts (auto) 5.7 Neutrophils % 66.8 Lymphocytes % 23.0 D Monocytes % 7.3 Eosinophils % 2.6 Basophils % 0.3 Nucleated RBC % 0 PT with INR INR PTT (Actin FS) Sodium 138 Potassium 3.7 Chloride 103 Carbon Dioxide 24 Anion Gap 11 BUN 15 Creatinine 0.9 Creat Clearance w eGFR > 60 Random Glucose 103 Calcium 8.7 Total Bilirubin 0.4 AST 27 ALT 46 Alkaline Phosphatase 76 Creatine Kinase 478 H Creatine Kinase Index 0.6 CK-MB (CK-2) 3.2 Troponin I 0.08 H B-Natriuretic Peptide Total Protein 7.1 Albumin 3.7 TSH 0.67 D Active Medications Generic Name Dose Route Start Last Admin Trade Name Freq PRN Reason Stop Dose Admin Albuterol/Ipratropium 1 amp 08/01/18 19:04 08/01/18 23:40 Duoneb - NEB 1 amp Q6H PRN Administration SHORTNESS OF BREATH Aspirin 81 mg 08/02/18 10:00 08/02/18 09:54 Ecotrin - PO 81 mg DAILY [facility] Administration Diltiazem HCl 120 mg 08/02/18 10:00 08/02/18 09:54 Cardizem Cd - PO 120 mg DAILY [facility] Administration HCTZ/Losartan Potassium 1 tab 08/01/18 19:15 08/02/18 10:28 Hyzaar - PO 1 tab DAILY [facility] Administration Heparin Sodium (Porcine) 5,000 unit 08/02/18 10:00 08/02/18 09:54 Heparin - SQ 5,000 unit BID [facility]AD[facility] Administration Meclizine HCl 25 mg 08/02/18 06:00 08/02/18 17:30 Antivert - PO 25 mg Q6HPO [facility] Administration COVERING FOR DR ERICKSON TODAY
[2018-08-03] MEDS: MECLIZINE HCL 25 MG TABLET (FP) PO SCH ×4 (00:05→17:07)
[2018-08-03] MEDS ORDERED: PT OWN MED DRAWER 7, Y5N ONE (08:51)
[2018-08-03] MEDS: LOSARTAN 50MG/HCTZ 12.5MG 1 TAB (FP) PO SCH (09:06)
[2018-08-03] MEDS: ASPIRIN COATED 81 MG TABLET.EC PO SCH (09:06)
[2018-08-03] MEDS: HEPARIN NA (PORCINE) 5,000 UNITS/ML 1ML VIAL SQ SCH ×2 (09:06→21:20)
--- NOTE | 2018-08-03 09:09 | PN ---
Progress Note, Physician History of Present Illness: Mr Hyde is a 58 yo M who presents to the ER with a complaint of vertigo PMH includes Afib on anticoagulation For the past few weeks he has had vertigo with changes in position Today, while laying down, he developed severe vertigo No chest pain, palpitations, numbness or tingling - Current Medication List Current Medications: Active Medications Albuterol/Ipratropium (Duoneb -) 1 amp NEB Q6H PRN PRN Reason: SHORTNESS OF BREATH Last Admin: 08/01/18 23:40 Dose: 1 amp Aspirin (Ecotrin -) 81 mg PO DAILY [facility] Last Admin: 08/03/18 09:06 Dose: 81 mg Diltiazem HCl (Cardizem Cd -) 120 mg PO DAILY [facility] Last Admin: 08/03/18 09:07 Dose: Not Given HCTZ/Losartan Potassium (Hyzaar -) 1 tab PO DAILY [facility] Last Admin: 08/03/18 09:06 Dose: 1 tab Heparin Sodium (Porcine) (Heparin -) 5,000 unit SQ BID [facility] Last Admin: 08/03/18 09:06 Dose: 5,000 unit Meclizine HCl (Antivert -) 25 mg PO Q6HPO [facility] Last Admin: 08/03/18 06:22 Dose: 25 mg - Objective Vital Signs: Vital Signs Temperature 97.7 F 08/03/18 05:58 Pulse Rate 64 08/03/18 05:58 Respiratory Rate 20 08/03/18 05:58 Blood Pressure 156/76 08/03/18 05:58 O2 Sat by Pulse Oximetry (%) 95 08/02/18 21:00 Eyes: Yes: WNL, Conjunctiva Clear, EOM Intact HENT: Yes: WNL, Atraumatic, Normocephalic Neck: Yes: WNL, Supple, Trachea Midline Cardiovascular: Yes: WNL, Regular Rate and Rhythm Respiratory: Yes: WNL, Regular, CTA Bilaterally Gastrointestinal: Yes: WNL, Normal Bowel Sounds Genitourinary: Yes: WNL Musculoskeletal: Yes: WNL Extremities: Yes: WNL Edema: No Integumentary: Yes: WNL Neurological: Yes: WNL, Alert, Oriented ...Motor Strength: WNL Psychiatric: Yes: WNL Labs: CBC, BMP 08/02/18 06:30 08/02/18 06:30 INR, PTT INR 1.00 (0.83-1.09) 08/01/18 14:25 Problem List - Problems (1) Asthma Code(s): J45.909 - UNSPECIFIED ASTHMA, UNCOMPLICATED Qualifiers: Asthma severity: mild intermittent Asthma complication type: uncomplicated Qualified Code(s): J45.20 - Mild intermittent asthma, uncomplicated (2) Atypical chest pain Code(s): R07.89 - OTHER CHEST PAIN (3) Bronchitis Code(s): J40 - BRONCHITIS, NOT SPECIFIED ACUTE OR CHRONIC (4) Chest pain, rule out acute myocardial infarction Code(s): R07.9 - CHEST PAIN, UNSPECIFIED (5) Elevated CK-MB level Code(s): R74.8 - ABNORMAL LEVELS OF OTHER SERUM ENZYMES (6) Elevated troponin I level Code(s): R79.89 - OTHER SPECIFIED ABNORMAL FINDINGS OF BLOOD CHEMISTRY (7) Hypertensive cardiomyopathy Code(s): I11.9 - HYPERTENSIVE HEART DISEASE WITHOUT HEART FAILURE; I42.9 - CARDIOMYOPATHY, UNSPECIFIED Qualifiers: Heart failure presence: without heart failure Qualified Code(s): I11.9 - Hypertensive heart disease without heart failure (8) New onset atrial fibrillation Code(s): I48.91 - UNSPECIFIED ATRIAL FIBRILLATION (9) Subendocardial ischemia Code(s): I24.8 - OTHER FORMS OF ACUTE ISCHEMIC HEART DISEASE Assessment/Plan paf [id number] score1 s. pepito at admission now in af on tele EKG pending htn vertigo noncomplience Plan restart cardizem cd 120 telemetry echo restart ac -not clear what patient is on as the outpatient. Coverage dr. Montejo
--- NOTE | 2018-08-03 11:34 | PN ---
Progress Note (short form) - Note Progress Note: Neurology History of Present Illness: 58 year old male who presented to the ER with a complaint of vertigo for several weeks prior to admission. Medical history includes PMH, AFib. On day of admission, patient stated he had severe episode of vertigo while laying down. Patient denied chest pain, palpitations numbness or tingling. Admitted for further management, CT head reviewed and without acute changes. Carotid doppler completed, negative and without HD significant stenosis, reviewed and discussed in detail. Does report he has some dizziness and has been started on Meclezine and getting IV fluids at bedside. Is improved from yesterday and neurologically stable for d/c if desired. Active Medications Albuterol/Ipratropium (Duoneb -) 1 amp NEB Q6H PRN PRN Reason: SHORTNESS OF BREATH Last Admin: 08/01/18 23:40 Dose: 1 amp Aspirin (Ecotrin -) 81 mg PO DAILY [facility] Last Admin: 08/03/18 09:06 Dose: 81 mg Diltiazem HCl (Cardizem Cd -) 120 mg PO DAILY [facility] Last Admin: 08/03/18 09:07 Dose: Not Given HCTZ/Losartan Potassium (Hyzaar -) 1 tab PO DAILY [facility] Last Admin: 08/03/18 09:06 Dose: 1 tab Heparin Sodium (Porcine) (Heparin -) 5,000 unit SQ BID [facility] Last Admin: 08/03/18 09:06 Dose: 5,000 unit Meclizine HCl (Antivert -) 25 mg PO Q6HPO [facility] Last Admin: 08/03/18 11:09 Dose: 25 mg Physicial Exam Vital Signs Temperature 97.8 F 08/03/18 10:00 Pulse Rate 64 08/03/18 10:00 Respiratory Rate 20 08/03/18 10:00 Blood Pressure 110/57 L 08/03/18 10:00 O2 Sat by Pulse Oximetry (%) 97 08/03/18 09:00 GENERAL: The patient is in no acute distress. HEAD: Normal with no signs of trauma. EYES: PERRLA, EOMI, sclera anicteric, conjunctiva clear. ENT: Ears normal, nares patent, oropharynx clear without exudates. Moist mucous membranes. NECK: Normal range of motion, supple without lymphadenopathy, JVD, or masses. LUNGS: Breath sounds equal, clear to auscultation bilaterally. No wheezes, and no crackles. HEART:Regular rate and rhythm, normal S1 and S2 without murmur, rub or gallop. ABDOMEN: Soft, nontender, normoactive bowel sounds. No guarding, no rebound. No masses palpable. EXTREMITIES: Normal range of motion, no edema. No clubbing or cyanosis. No erythema, or tenderness. NEUROLOGICAL: Cranial nerves II through XII grossly intact. Normal speech. No focal neurological deficits. MUSCULOSKELETAL: Back non-tender to palpation, no CVA tenderness SKIN: Warm, Dry, normal turgor, no rashes or lesions noted. Laboratory Value CBCD WBC 8.5 K/mm3 (4.0-10.0) 08/02/18 06:30 RBC 5.47 M/mm3 (4.00-5.60) 08/02/18 06:30 Hgb 15.3 GM/dL (11.7-16.9) 08/02/18 06:30 Hct 48.3 % (35.4-49) 08/02/18 06:30 MCV 88.3 fl (80-96) 08/02/18 06:30 MCHC 31.6 g/dl (32.0-35.9) L 08/02/18 06:30 RDW 14.6 % (11.9-15.9) 08/02/18 06:30 Plt Count 196 K/MM3 (134-434) 08/02/18 06:30 MPV 10.2 fl (7.5-11.1) 08/02/18 06:30 CMP Sodium 138 mmol/L (136-145) 08/02/18 06:30 Potassium 3.7 mmol/L (3.5-5.1) 08/02/18 06:30 Chloride 103 mmol/L (98-107) 08/02/18 06:30 Carbon Dioxide 24 mmol/L (21-32) 08/02/18 06:30 Anion Gap 11 MMOL/L (8-16) 08/02/18 06:30 BUN 15 mg/dL (7-18) 08/02/18 06:30 Creatinine 0.9 mg/dL (0.55-1.3) 08/02/18 06:30 Creat Clearance w eGFR > 60 (>60) 08/02/18 06:30 Random Glucose 103 mg/dL (74-106) 08/02/18 06:30 Calcium 8.7 mg/dL (8.5-10.1) 08/02/18 06:30 Total Bilirubin 0.4 mg/dL (0.2-1) 08/02/18 06:30 AST 27 U/L (15-37) 08/02/18 06:30 ALT 46 U/L (13-61) 08/02/18 06:30 Alkaline Phosphatase 76 U/L (45-117) 08/02/18 06:30 Total Protein 7.1 g/dl (6.4-8.2) 08/02/18 06:30 Albumin 3.7 g/dl (3.4-5.0) 08/02/18 06:30 CARDIAC ENZYMES Creatine Kinase 382 IU/L (26-308) H 08/02/18 20:55 Troponin I 0.07 ng/ml (0.00-0.05) H 08/02/18 20:55 Diagnostic: Head CT - completed and reviewed Carotid Doppler - completed Plan/Assessment 58 year old male who presented to the ER with a complaint of vertigo for several weeks prior to admission. Medical history includes PMH, AFib. On day of admission, patient stated he had severe episode of vertigo while laying down. Patient denied chest pain, palpitations numbness or tingling. Admitted for further management, CT head reviewed and without acute changes. Carotid doppler completed, awaiting report. Does report he has some dizziness yesterday in AM. Has been started on Meclezine and getting IV fluids at bedside. Has been started on Meclezine and getting IV fluids at bedside. Carotid doppler completed , negative and without HD significant stenosis, reviewed and discussed in detail. Does report he has some dizziness and has been started on Meclezine and getting IV fluids at bedside. Is improved from yesterday and neurologically stable for d/c if desired. Continue cardiac workup and Afib optimization as planned. Maintain hydration. Monitor blood pressure, maintain normotensive range. DVT ppx.
--- NOTE | 2018-08-03 20:44 | PN ---
Progress Note, Physician History of Present Illness: No new complaints - Current Medication List Current Medications: Active Medications Albuterol/Ipratropium (Duoneb -) 1 amp NEB Q6H PRN PRN Reason: SHORTNESS OF BREATH Last Admin: 08/01/18 23:40 Dose: 1 amp Aspirin (Ecotrin -) 81 mg PO DAILY [facility] Last Admin: 08/03/18 09:06 Dose: 81 mg Diltiazem HCl (Cardizem Cd -) 120 mg PO DAILY [facility] Last Admin: 08/03/18 09:07 Dose: Not Given HCTZ/Losartan Potassium (Hyzaar -) 1 tab PO DAILY [facility] Last Admin: 08/03/18 09:06 Dose: 1 tab Heparin Sodium (Porcine) (Heparin -) 5,000 unit SQ BID [facility] Last Admin: 08/03/18 09:06 Dose: 5,000 unit Meclizine HCl (Antivert -) 25 mg PO Q6HPO [facility] Last Admin: 08/03/18 17:07 Dose: 25 mg - Objective Vital Signs: Vital Signs Temperature 97.6 F 08/03/18 17:39 Pulse Rate 72 08/03/18 17:39 Respiratory Rate 20 08/03/18 20:37 Blood Pressure 168/94 08/03/18 17:39 O2 Sat by Pulse Oximetry (%) 97 08/03/18 20:37 Constitutional: Yes: Well Nourished Neck: Yes: WNL, Supple Cardiovascular: Yes: WNL, Regular Rate and Rhythm Respiratory: Yes: WNL, Regular, CTA Bilaterally Gastrointestinal: Yes: WNL, Normal Bowel Sounds, Soft Labs: CBC, BMP 08/02/18 06:30 08/02/18 06:30 INR, PTT INR 1.00 (0.83-1.09) 08/01/18 14:25 Problem List - Problems (1) Elevated troponin I level Assessment/Plan: BP stable Await cardio recommendations Cont asa Code(s): R79.89 - OTHER SPECIFIED ABNORMAL FINDINGS OF BLOOD CHEMISTRY (2) Vertigo Assessment/Plan: Cont meclizine CT scan head was unremarkable Code(s): R42 - DIZZINESS AND GIDDINESS (3) HTN (hypertension) Assessment/Plan: Cont losartan/diltiazem Code(s): I10 - ESSENTIAL (PRIMARY) HYPERTENSION (4) Asthma Assessment/Plan: Cont duoneb Code(s): J45.909 - UNSPECIFIED ASTHMA, UNCOMPLICATED Qualifiers: Asthma severity: mild intermittent Asthma complication type: uncomplicated
[2018-08-04] MEDS: MECLIZINE HCL 25 MG TABLET (FP) PO SCH ×3 (00:33→15:54)
[2018-08-04] MEDS: ALBUTEROL SO4 2.5/IPRATROPIUM 0.5 INH SOL 3 ML VIAL.NEB. NEB PRN (07:47)
--- NOTE | 2018-08-04 09:16 | PN ---
Progress Note, Physician Chief Complaint: vertigo sx resolved. TELE: NSR now. Episodes of RVR previously Head CT neg - Current Medication List Current Medications: Active Medications Albuterol/Ipratropium (Duoneb -) 1 amp NEB Q6H PRN PRN Reason: SHORTNESS OF BREATH Last Admin: 08/04/18 07:47 Dose: 1 amp Aspirin (Ecotrin -) 81 mg PO DAILY [facility] Last Admin: 08/03/18 09:06 Dose: 81 mg Diltiazem HCl (Cardizem Cd -) 120 mg PO DAILY [facility] Last Admin: 08/03/18 09:07 Dose: Not Given HCTZ/Losartan Potassium (Hyzaar -) 1 tab PO DAILY [facility] Last Admin: 08/03/18 09:06 Dose: 1 tab Heparin Sodium (Porcine) (Heparin -) 5,000 unit SQ BID [facility] Last Admin: 08/03/18 21:20 Dose: 5,000 unit Meclizine HCl (Antivert -) 25 mg PO Q6HPO [facility] Last Admin: 08/04/18 06:10 Dose: Not Given - Objective Vital Signs: Vital Signs Temperature 97.5 F L 08/04/18 05:14 Pulse Rate 68 08/04/18 05:14 Respiratory Rate 20 08/04/18 05:14 Blood Pressure 133/74 08/04/18 05:14 O2 Sat by Pulse Oximetry (%) 97 08/03/18 20:37 Constitutional: Yes: No Distress, Calm Cardiovascular: Yes: Regular Rate and Rhythm Respiratory: Yes: CTA Bilaterally Gastrointestinal: Yes: Soft Edema: No Neurological: Yes: Alert, Oriented Labs: CBC, BMP 08/02/18 06:30 08/02/18 06:30 INR, PTT INR 1.00 (0.83-1.09) 08/01/18 14:25 Laboratory Tests 08/01/18 08/02/18 08/02/18 14:25 02:44 06:30 Creatine Kinase 550 H 478 H 458 H Troponin I 0.09 H 0.08 H 0.09 H 08/02/18 08/04/18 20:55 05:30 Creatine Kinase 382 H 355 H Troponin I 0.07 H 0.07 H - ....Imaging EKG: Image Reviewed Assessment/Plan IMP: PAF Vertigo vs dizziness from PAF w/ RVR? now resolved. (Head CT negative). Neuro consult reviewed. Mild elevation TnI- suspected from demand ischemia due to AF w/ RVR REC: 1. Echo for EF assessment 2. Refuses full AC: aware of risks, several discussions with him about benefits/ indications dating back to 2016 when he was [address] Dr[address] Payton. Since he works with [employer] his concern is re risk of getting cut and bleeding. He prefers to continue ASA therapy. As [id number] VASC score is 1, ASA therapy is acceptable as well. 3. Will plan for stress MPI in AM to r/o underlying obstructive CAD
--- NOTE | 2018-08-04 09:26 | PN ---
Progress Note (short form) - Note Progress Note: Neurology History of Present Illness: 58 year old male who presented to the ER with a complaint of vertigo for several weeks prior to admission. Medical history includes PMH, AFib. On day of admission, patient stated he had severe episode of vertigo while laying down. Patient denied chest pain, palpitations numbness or tingling. Admitted for further management, CT head reviewed and without acute changes. Carotid doppler completed, negative and without HD significant stenosis, reviewed and discussed in detail. Has been started on Meclezine and getting IV fluids for dizziness. States his dizzyness is improved and reports no symptoms this AM. Spoke with cardiology who is planning stress test tomorrow, no objection to this. Does have Afib for which he is not on AC. Cardiology managing medically Active Medications Albuterol/Ipratropium (Duoneb -) 1 amp NEB Q6H PRN PRN Reason: SHORTNESS OF BREATH Last Admin: 08/04/18 07:47 Dose: 1 amp Aspirin (Ecotrin -) 81 mg PO DAILY [facility] Last Admin: 08/03/18 09:06 Dose: 81 mg Diltiazem HCl (Cardizem Cd -) 120 mg PO DAILY [facility] Last Admin: 08/03/18 09:07 Dose: Not Given HCTZ/Losartan Potassium (Hyzaar -) 1 tab PO DAILY [facility] Last Admin: 08/03/18 09:06 Dose: 1 tab Heparin Sodium (Porcine) (Heparin -) 5,000 unit SQ BID [facility] Last Admin: 08/03/18 21:20 Dose: 5,000 unit Meclizine HCl (Antivert -) 25 mg PO Q6HPO [facility] Last Admin: 08/04/18 06:10 Dose: Not Given Physicial Exam Vital Signs Period Temp Pulse Resp BP Sys/Dockery Pulse Ox Last 24 Hr 97.2 F-98 F 64-120 20-20 110-168/57-94 97 GENERAL: The patient is in no acute distress. HEAD: Normal with no signs of trauma. EYES: PERRLA, EOMI, sclera anicteric, conjunctiva clear. ENT: Ears normal, nares patent, oropharynx clear without exudates. Moist mucous membranes. NECK: Normal range of motion, supple without lymphadenopathy, JVD, or masses. LUNGS: Breath sounds equal, clear to auscultation bilaterally. No wheezes, and no crackles. HEART:Regular rate and rhythm, normal S1 and S2 without murmur, rub or gallop. ABDOMEN: Soft, nontender, normoactive bowel sounds. No guarding, no rebound. No masses palpable. EXTREMITIES: Normal range of motion, no edema. No clubbing or cyanosis. No erythema, or tenderness. NEUROLOGICAL: Cranial nerves II through XII grossly intact. Normal speech. No focal neurological deficits. MUSCULOSKELETAL: Back non-tender to palpation, no CVA tenderness SKIN: Warm, Dry, normal turgor, no rashes or lesions noted. Laboratory Value CBCD WBC 8.5 K/mm3 (4.0-10.0) 08/02/18 06:30 RBC 5.47 M/mm3 (4.00-5.60) 08/02/18 06:30 Hgb 15.3 GM/dL (11.7-16.9) 08/02/18 06:30 Hct 48.3 % (35.4-49) 08/02/18 06:30 MCV 88.3 fl (80-96) 08/02/18 06:30 MCHC 31.6 g/dl (32.0-35.9) L 08/02/18 06:30 RDW 14.6 % (11.9-15.9) 08/02/18 06:30 Plt Count 196 K/MM3 (134-434) 08/02/18 06:30 MPV 10.2 fl (7.5-11.1) 08/02/18 06:30 CMP Sodium 138 mmol/L (136-145) 08/02/18 06:30 Potassium 3.7 mmol/L (3.5-5.1) 08/02/18 06:30 Chloride 103 mmol/L (98-107) 08/02/18 06:30 Carbon Dioxide 24 mmol/L (21-32) 08/02/18 06:30 Anion Gap 11 MMOL/L (8-16) 08/02/18 06:30 BUN 15 mg/dL (7-18) 08/02/18 06:30 Creatinine 0.9 mg/dL (0.55-1.3) 08/02/18 06:30 Creat Clearance w eGFR > 60 (>60) 08/02/18 06:30 Random Glucose 103 mg/dL (74-106) 08/02/18 06:30 Calcium 8.7 mg/dL (8.5-10.1) 08/02/18 06:30 Total Bilirubin 0.4 mg/dL (0.2-1) 08/02/18 06:30 AST 27 U/L (15-37) 08/02/18 06:30 ALT 46 U/L (13-61) 08/02/18 06:30 Alkaline Phosphatase 76 U/L (45-117) 08/02/18 06:30 Total Protein 7.1 g/dl (6.4-8.2) 08/02/18 06:30 Albumin 3.7 g/dl (3.4-5.0) 08/02/18 06:30 CARDIAC ENZYMES Creatine Kinase 355 IU/L (26-308) H 08/04/18 05:30 Troponin I 0.07 ng/ml (0.00-0.05) H 08/04/18 05:30 Diagnostic: Head CT - completed and reviewed Carotid Doppler - completed Plan/Assessment 58 year old male who presented to the ER with a complaint of vertigo for several weeks prior to admission. Medical history includes PMH, AFib. On day of admission, patient stated he had severe episode of vertigo while laying down. Patient denied chest pain, palpitations numbness or tingling. Admitted for further management, CT head reviewed and without acute changes. Has been started on Meclezine and getting IV fluids for dizziness. States his dizzyness is improved and reports no symptoms this AM. Spoke with cardiology who is planning stress test tomorrow, no objection to this. Does have Afib for which he is not on on AC. Cardiology managing medically. DVT ppx. Neurologically improved at this time.
[2018-08-04] MEDS: LOSARTAN 50MG/HCTZ 12.5MG 1 TAB (FP) PO SCH (10:30)
[2018-08-04] MEDS: ASPIRIN COATED 81 MG TABLET.EC PO SCH (10:37)
[2018-08-04] MEDS ORDERED: PT OWN MED DRAWER 7, Y5N ONE (10:39)
--- NOTE | 2018-08-04 11:16 | ECHO ---
Name: OLIVIA FRY Exam:Adult Echocardiogram Study Date: 08/04/2018 09:28 AM Age: 58 yrs Reason For Study: DYSPNEA Height: 70 in Weight: 230 lb BSA: 2.2 m2 MMode/2D Measurements & Calculations IVSd: 1.1 cm Ao root diam: 3.3 cm LVIDd: 4.4 cm LA dimension: 3.6 cm LVIDs: 2.5 cm ACS: 1.7 cm LVPWd: 1.2 cm IVSs: 1.6 cm LVPWs: 1.4 cm EDV(Teich): 89.5 ml ESV(Teich): 23.1 ml Doppler Measurements & Calculations MV E max benjamin: 49.4 cm/sec Ao V2 max: 120.8 cm/sec MV A max benjamin: 82.9 cm/sec Ao max P.8 mmHg MV E/A: 0.60 Ao V2 mean: 86.4 cm/sec Ao mean P.4 mmHg Ao V2 VTI: 22.5 cm Med Peak E' Benjamin: 3.9 cm/sec Med E/e': 12.7 Lat Peak E' Benjamin: 4.9 cm/sec Lat E/e': 10.1 Procedure A complete two-dimensional transthoracic echocardiogram was performed (2D, M-mode, Doppler and color flow Doppler). Technically limited study. Left Ventricle The left ventricle is normal in size. Left ventricular systolic function is normal. Ejection Fraction = 65- 70%. Grade I diastolic dysfunction, (abnormal relaxation pattern). Ratio E/E'= 13. No regional wall m otion abnormalities noted. Right Ventricle The right ventricle is normal size. The right ventricular systolic function is normal. Atria The left atrial size is normal. Right atrial size is normal. Mitral Valve The mitral valve is normal in structure and function. There is no mitral regurgitation noted. Tricuspid Valve The tricuspid valve is normal in structure and function. No tricuspid regurgitation. Aortic Valve The aortic valve is normal in structure and function. No aortic regurgitation is present. Pulmonic Valve The pulmonic valve is not well visualized. Great Vessels The aortic root is normal size. Pericardium/Pleura There is no pericardial effusion. Interpretation Summary Technically limited study The left ventricle is normal in size. Left ventricular systolic function is normal. No regional wall motion abnormalities noted. Ejection Fraction = 65-70%. Grade I diastolic dysfunction, (abnormal relaxation pattern). Ratio E/E'= 13 c/w normal filling pressure The right ventricular systolic function is normal. The left atrial size is normal. Right atrial size is normal. No significant valvular regurgitations are seen There is no pericardial effusion. Previous study is not available for comparison Martín Rodriguez MD 08/04/2018 11:16 AM
[2018-08-04] MEDS: HEPARIN NA (PORCINE) 5,000 UNITS/ML 1ML VIAL SQ SCH ×2 (15:56→21:05)
[2018-08-04 17:58] LABS: ANION GAP 10 MMOL/L (8-16); BLOOD UREA NITROGEN 16 mg/dL (7-18); CALCIUM 9.1 mg/dL (8.5-10.1); CHLORIDE 103 mmol/L (98-107); CO2 26 mmol/L (21-32); GLUCOSE,RANDOM 108 mg/dL (74-106); POTASSIUM 3.5 mmol/L (3.5-5.1); SODIUM 139 mmol/L (136-145)
[2018-08-04] MEDS ORDERED: LOSARTAN POTASSIUM 50 MG TABLET (FP) PO ONE ×2 (18:00→21:15)
--- NOTE | 2018-08-05 00:25 | PN ---
Progress Note, Physician History of Present Illness: No new complaints - Current Medication List Current Medications: Active Medications Albuterol/Ipratropium (Duoneb -) 1 amp NEB Q6H PRN PRN Reason: SHORTNESS OF BREATH Last Admin: 08/04/18 07:47 Dose: 1 amp Aspirin (Ecotrin -) 81 mg PO DAILY [facility] Last Admin: 08/04/18 10:37 Dose: 81 mg Diltiazem HCl (Cardizem Cd -) 120 mg PO DAILY [facility] Last Admin: 08/04/18 10:37 Dose: 120 mg HCTZ/Losartan Potassium (Hyzaar -) 1 tab PO DAILY [facility] Last Admin: 08/04/18 10:30 Dose: 1 tab Heparin Sodium (Porcine) (Heparin -) 5,000 unit SQ BID [facility] Last Admin: 08/04/18 21:05 Dose: 5,000 unit Meclizine HCl (Antivert -) 25 mg PO Q6HPO [facility] Last Admin: 08/04/18 15:54 Dose: Not Given - Objective Vital Signs: Vital Signs Temperature 97.9 F 08/04/18 21:00 Pulse Rate 66 08/04/18 21:00 Respiratory Rate 20 08/04/18 21:00 Blood Pressure 141/77 08/04/18 21:00 O2 Sat by Pulse Oximetry (%) 96 08/04/18 20:07 Neck: Yes: WNL, Supple Cardiovascular: Yes: WNL, Regular Rate and Rhythm Respiratory: Yes: WNL, Regular, CTA Bilaterally Gastrointestinal: Yes: WNL, Normal Bowel Sounds, Soft Labs: CBC, BMP 08/02/18 06:30 08/04/18 17:00 INR, PTT INR 1.00 (0.83-1.09) 08/01/18 14:25 Problem List - Problems (1) Elevated troponin I level Assessment/Plan: BP stable Cont asa Stress test in am Code(s): R79.89 - OTHER SPECIFIED ABNORMAL FINDINGS OF BLOOD CHEMISTRY (2) Paroxysmal A-fib Assessment/Plan: Pt has refused AC in the past Cont asa Code(s): I48.0 - PAROXYSMAL ATRIAL FIBRILLATION (3) Vertigo Assessment/Plan: Cont meclizine CT scan head was unremarkable Code(s): R42 - DIZZINESS AND GIDDINESS (4) HTN (hypertension) Assessment/Plan: Cont losartan/diltiazem Code(s): I10 - ESSENTIAL (PRIMARY) HYPERTENSION (5) Asthma Assessment/Plan: Cont duone Code(s): J45.909 - UNSPECIFIED ASTHMA, UNCOMPLICATED Qualifiers: Asthma severity: mild intermittent Asthma complication type: uncomplicated
[2018-08-05] MEDS: MECLIZINE HCL 25 MG TABLET (FP) PO SCH ×4 (06:00→12:57)
[2018-08-05] MEDS ORDERED: PT OWN MED DRAWER 7, Y5N ONE (08:38)
--- NOTE | 2018-08-05 09:04 | PN ---
Progress Note, Physician Chief Complaint: vertigo resolved. TELE: NSR, episodes PAF w/ RVR History of Present Illness: BP elevated last night, required extra dose Losartan - Current Medication List Current Medications: Active Medications Albuterol/Ipratropium (Duoneb -) 1 amp NEB Q6H PRN PRN Reason: SHORTNESS OF BREATH Last Admin: 08/04/18 07:47 Dose: 1 amp Aspirin (Ecotrin -) 81 mg PO DAILY [facility] Last Admin: 08/04/18 10:37 Dose: 81 mg Diltiazem HCl (Cardizem Cd -) 120 mg PO DAILY [facility] Last Admin: 08/04/18 10:37 Dose: 120 mg HCTZ/Losartan Potassium (Hyzaar -) 1 tab PO DAILY [facility] Last Admin: 08/04/18 10:30 Dose: 1 tab Heparin Sodium (Porcine) (Heparin -) 5,000 unit SQ BID [facility] Last Admin: 08/04/18 21:05 Dose: 5,000 unit Meclizine HCl (Antivert -) 25 mg PO Q6HPO [facility] Last Admin: 08/05/18 08:28 Dose: Not Given - Objective Vital Signs: Vital Signs Temperature 98 F 08/05/18 08:50 Pulse Rate 63 08/05/18 08:50 Respiratory Rate 20 08/05/18 08:50 Blood Pressure 140/98 08/05/18 08:50 O2 Sat by Pulse Oximetry (%) 96 08/04/18 20:07 Constitutional: Yes: Calm Cardiovascular: Yes: Regular Rate and Rhythm Respiratory: Yes: CTA Bilaterally Gastrointestinal: Yes: Soft Edema: No Neurological: Yes: Alert, Oriented ...Motor Strength: WNL Labs: CBC, BMP 08/02/18 06:30 08/04/18 17:00 INR, PTT INR 1.00 (0.83-1.09) 08/01/18 14:25 Laboratory Tests 08/02/18 08/04/18 06:30 17:00 WBC 8.5 Hgb 15.3 Plt Count 196 Sodium 139 Potassium 3.5 BUN 16 Creatinine 1.0 - ....Imaging EKG: Image Reviewed (Episodes of PAF RVR) Assessment/Plan IMP: PAF Vertigo vs dizziness from PAF w/ RVR? now resolved. (Head CT negative). Neuro consult reviewed. Mild elevation TnI- suspected from demand ischemia due to AF w/ RVR REC: 1. Echo showed normal EF, diastolic dysfx 2. Refuses full AC: aware of risks, several discussions with him about benefits/ indications dating back to 2016 when he was seeing Dr. Payton. Since he works with [employer] his concern is re risk of getting cut and bleeding. He prefers to continue ASA therapy. As [id number] VASC score is 1, ASA therapy is acceptable as well. 3. To complete stress test today. 4. Add beta juliocesar for improved rate control.
[2018-08-05] MEDS: LOSARTAN 50MG/HCTZ 12.5MG 1 TAB (FP) PO SCH (09:12)
[2018-08-05] MEDS: ASPIRIN COATED 81 MG TABLET.EC PO SCH ×2 (09:13→12:58)
--- NOTE | 2018-08-05 09:21 | PN ---
Progress Note (short form) - Note Progress Note: Neurology History of Present Illness: 58 year old male who presented to the ER with a complaint of vertigo for several weeks prior to admission. Medical history includes PMH, AFib. On day of admission, patient stated he had severe episode of vertigo while laying down. Patient denied chest pain, palpitations numbness or tingling. Admitted for further management, CT head reviewed and without acute changes. Carotid doppler completed, negative and without HD significant stenosis, reviewed and discussed in detail. Has been started on Meclezine and getting IV fluids for dizziness. States his dizzyness is improved and reports no symptoms this AM. Spoke with cardiology who is planning stress test today, confirmed this AMA, no objection to this. Does have Afib for which he is not on AC. Cardiology managing medically Active Medications Albuterol/Ipratropium (Duoneb -) 1 amp NEB Q6H PRN PRN Reason: SHORTNESS OF BREATH Last Admin: 08/04/18 07:47 Dose: 1 amp Aspirin (Ecotrin -) 81 mg PO DAILY [facility] Last Admin: 08/04/18 10:37 Dose: 81 mg Diltiazem HCl (Cardizem Cd -) 120 mg PO DAILY [facility] Last Admin: 08/05/18 09:13 Dose: 120 mg HCTZ/Losartan Potassium (Hyzaar -) 1 tab PO DAILY [facility] Last Admin: 08/05/18 09:12 Dose: 1 tab Heparin Sodium (Porcine) (Heparin -) 5,000 unit SQ BID [facility] Last Admin: 08/04/18 21:05 Dose: 5,000 unit Meclizine HCl (Antivert -) 25 mg PO Q6HPO [facility] Last Admin: 08/05/18 08:28 Dose: Not Given Metoprolol Tartrate (Lopressor -) 25 mg PO BID [facility] Physicial Exam Vital Signs Period Temp Pulse Resp BP Sys/Dockery Pulse Ox Last 24 Hr 97.8 F-98 F 63-90 18-20 108-160/59-108 96 GENERAL: The patient is in no acute distress. HEAD: Normal with no signs of trauma. EYES: PERRLA, EOMI, sclera anicteric, conjunctiva clear. ENT: Ears normal, nares patent, oropharynx clear without exudates. Moist mucous membranes. NECK: Normal range of motion, supple without lymphadenopathy, JVD, or masses. LUNGS: Breath sounds equal, clear to auscultation bilaterally. No wheezes, and no crackles. HEART:Regular rate and rhythm, normal S1 and S2 without murmur, rub or gallop. ABDOMEN: Soft, nontender, normoactive bowel sounds. No guarding, no rebound. No masses palpable. EXTREMITIES: Normal range of motion, no edema. No clubbing or cyanosis. No erythema, or tenderness. NEUROLOGICAL: Cranial nerves II through XII grossly intact. Normal speech. No focal neurological deficits. MUSCULOSKELETAL: Back non-tender to palpation, no CVA tenderness SKIN: Warm, Dry, normal turgor, no rashes or lesions noted. Laboratory Value CBCD WBC 8.5 K/mm3 (4.0-10.0) 08/02/18 06:30 RBC 5.47 M/mm3 (4.00-5.60) 08/02/18 06:30 Hgb 15.3 GM/dL (11.7-16.9) 08/02/18 06:30 Hct 48.3 % (35.4-49) 08/02/18 06:30 MCV 88.3 fl (80-96) 08/02/18 06:30 MCHC 31.6 g/dl (32.0-35.9) L 08/02/18 06:30 RDW 14.6 % (11.9-15.9) 08/02/18 06:30 Plt Count 196 K/MM3 (134-434) 08/02/18 06:30 MPV 10.2 fl (7.5-11.1) 08/02/18 06:30 CMP Sodium 139 mmol/L (136-145) 08/04/18 17:00 Potassium 3.5 mmol/L (3.5-5.1) 08/04/18 17:00 Chloride 103 mmol/L (98-107) 08/04/18 17:00 Carbon Dioxide 26 mmol/L (21-32) 08/04/18 17:00 Anion Gap 10 MMOL/L (8-16) 08/04/18 17:00 BUN 16 mg/dL (7-18) 08/04/18 17:00 Creatinine 1.0 mg/dL (0.55-1.3) 08/04/18 17:00 Creat Clearance w eGFR > 60 (>60) 08/04/18 17:00 Random Glucose 108 mg/dL (74-106) H 08/04/18 17:00 Calcium 9.1 mg/dL (8.5-10.1) 08/04/18 17:00 Total Bilirubin 0.4 mg/dL (0.2-1) 08/02/18 06:30 AST 27 U/L (15-37) 08/02/18 06:30 ALT 46 U/L (13-61) 08/02/18 06:30 Alkaline Phosphatase 76 U/L (45-117) 08/02/18 06:30 Total Protein 7.1 g/dl (6.4-8.2) 08/02/18 06:30 Albumin 3.7 g/dl (3.4-5.0) 08/02/18 06:30 CARDIAC ENZYMES Creatine Kinase 355 IU/L (26-308) H 08/04/18 05:30 Troponin I 0.07 ng/ml (0.00-0.05) H 08/04/18 05:30 Diagnostic: Head CT - completed and reviewed Carotid Doppler - completed Plan/Assessment 58 year old male who presented to the ER with a complaint of vertigo for several weeks prior to admission. Medical history includes PMH, AFib. On day of admission, patient stated he had severe episode of vertigo while laying down. Patient denied chest pain, palpitations numbness or tingling. Admitted for further management, CT head reviewed and without acute changes. Has been started on Meclezine and getting IV fluids for dizziness. States his dizzyness is improved and reports no symptoms this AM. Spoke with cardiology who is planning stress test today, confirmed this AM, no objection to this. Does have Afib for which he is not on on AC. Cardiology managing medically. DVT ppx. Neurologically improved at this time.
[2018-08-05] MEDS ORDERED: REGADENOSON 0.4 MG/5 ML PRE-FILLED SYRINGE IVPUSH ONE ×2 (10:32→10:45)
[2018-08-05] MEDS: METOPROLOL TARTRATE 25 MG TABLET (FP) PO SCH ×2 (12:58→21:36)
[2018-08-05] MEDS: HEPARIN NA (PORCINE) 5,000 UNITS/ML 1ML VIAL SQ SCH ×2 (12:58→21:35)
--- NOTE | 2018-08-06 | PN ---
Progress Note, Physician History of Present Illness: Pt seen and examined 08/05/18 however note is being entered now - Current Medication List Current Medications: Active Medications Albuterol/Ipratropium (Duoneb -) 1 amp NEB Q6H PRN PRN Reason: SHORTNESS OF BREATH Last Admin: 08/04/18 07:47 Dose: 1 amp Aspirin (Ecotrin -) 81 mg PO DAILY [facility] Last Admin: 08/05/18 12:58 Dose: 81 mg Diltiazem HCl (Cardizem Cd -) 120 mg PO DAILY [facility] Last Admin: 08/05/18 09:13 Dose: 120 mg HCTZ/Losartan Potassium (Hyzaar -) 1 tab PO DAILY [facility] Last Admin: 08/05/18 09:12 Dose: 1 tab Heparin Sodium (Porcine) (Heparin -) 5,000 unit SQ BID [facility] Last Admin: 08/05/18 21:35 Dose: 5,000 unit Meclizine HCl (Antivert -) 25 mg PO Q6HPO [facility] Last Admin: 08/05/18 12:57 Dose: Not Given Metoprolol Tartrate (Lopressor -) 25 mg PO BID [facility] Last Admin: 08/05/18 21:36 Dose: 25 mg - Objective Vital Signs: Vital Signs Temperature 97.9 F 08/05/18 22:00 Pulse Rate 114 H 08/05/18 22:00 Respiratory Rate 17 08/05/18 22:00 Blood Pressure 142/71 08/05/18 22:00 O2 Sat by Pulse Oximetry (%) 96 08/05/18 20:41 Neck: Yes: WNL, Supple Cardiovascular: Yes: WNL, Regular Rate and Rhythm Respiratory: Yes: WNL, Regular, CTA Bilaterally Gastrointestinal: Yes: WNL, Normal Bowel Sounds, Soft Edema: No Labs: CBC, BMP 08/02/18 06:30 08/04/18 17:00 INR, PTT INR 1.00 (0.83-1.09) 08/01/18 14:25 Problem List - Problems (1) Elevated troponin I level Assessment/Plan: BP stable Cont asa Awaiting results of stress test for dc Code(s): R79.89 - OTHER SPECIFIED ABNORMAL FINDINGS OF BLOOD CHEMISTRY (2) Paroxysmal A-fib Assessment/Plan: Pt has refused AC in the past Cont asa Code(s): I48.0 - PAROXYSMAL ATRIAL FIBRILLATION (3) Vertigo Assessment/Plan: Cont meclizine CT scan head was unremarkable Code(s): R42 - DIZZINESS AND GIDDINESS (4) HTN (hypertension) Assessment/Plan: Cont losartan/diltiazem Code(s): I10 - ESSENTIAL (PRIMARY) HYPERTENSION (5) Asthma Assessment/Plan: Cont duoneb Code(s): J45.909 - UNSPECIFIED ASTHMA, UNCOMPLICATED Qualifiers: Asthma severity: mild intermittent Asthma complication type: uncomplicated
--- NOTE | 2018-08-06 09:01 | PN ---
Progress Note, Physician Chief Complaint: Stress MPI reviewed: No ischemia Normal EF on Echo TELE: reviewed. Overal rate controlled, few short lived episodes LORA can be further monitored and managed as outpt No further dizziness - Current Medication List Current Medications: Active Medications Albuterol/Ipratropium (Duoneb -) 1 amp NEB Q6H PRN PRN Reason: SHORTNESS OF BREATH Last Admin: 08/04/18 07:47 Dose: 1 amp Aspirin (Ecotrin -) 81 mg PO DAILY [facility] Last Admin: 08/05/18 12:58 Dose: 81 mg Diltiazem HCl (Cardizem Cd -) 120 mg PO DAILY [facility] Last Admin: 08/05/18 09:13 Dose: 120 mg HCTZ/Losartan Potassium (Hyzaar -) 1 tab PO DAILY [facility] Last Admin: 08/05/18 09:12 Dose: 1 tab Heparin Sodium (Porcine) (Heparin -) 5,000 unit SQ BID [facility] Last Admin: 08/05/18 21:35 Dose: 5,000 unit Meclizine HCl (Antivert -) 25 mg PO Q6HPO [facility] Last Admin: 08/05/18 12:57 Dose: Not Given Metoprolol Tartrate (Lopressor -) 25 mg PO BID [facility] Last Admin: 08/05/18 21:36 Dose: 25 mg - Objective Vital Signs: Vital Signs Temperature 97.6 F 08/06/18 05:30 Pulse Rate 58 L 08/06/18 05:30 Respiratory Rate 20 08/06/18 05:30 Blood Pressure 141/72 08/06/18 05:30 O2 Sat by Pulse Oximetry (%) 96 08/05/18 20:41 Constitutional: Yes: Calm Cardiovascular: Yes: Regular Rate and Rhythm Respiratory: Yes: CTA Bilaterally Gastrointestinal: Yes: Soft (NT) Edema: No Neurological: Yes: WNL, Alert, Oriented ...Motor Strength: WNL Labs: CBC, BMP 08/02/18 06:30 08/04/18 17:00 INR, PTT INR 1.00 (0.83-1.09) 08/01/18 14:25 - ....Imaging EKG: Image Reviewed Assessment/Plan IMP: PAF Vertigo vs dizziness from PAF w/ RVR? now resolved. (Head CT negative). Neuro consult reviewed. Mild elevation TnI- suspected from demand ischemia due to AF w/ RVR REC: 1. Echo showed normal EF, diastolic dysfx 2. Refuses full AC: aware of risks, several discussions with him about benefits/ indications dating back to 2016 when he was seeing Dr. Payton. Since he works with [employer] his concern is re risk of getting cut and bleeding. He prefers to continue ASA therapy. As [id number] VASC score is 1, ASA can be used although is likely inferior to full AC. He is aware of our reccs for full AC. 3. No ischemia on stress test. 4. Overall heart rate is improved, with few short self limited episodes of PAF that can be further managed and treated as outpatient. OK for D/C from CV perspective on current meds (with the addition of metoprolol tartrate). F/u w/ me in 1-2 weeks.
[2018-08-06 09:02] VITALS: BP 140/85; PULSE 60; TEMP 98
[2018-08-06] MEDS: MECLIZINE HCL 25 MG TABLET (FP) PO SCH (09:02)
--- NOTE | 2018-08-06 09:18 | PN ---
Progress Note (short form) - Note Progress Note: Neurology History of Present Illness: 58 year old male who presented to the ER with a complaint of vertigo for several weeks prior to admission. Medical history includes PMH, AFib. On day of admission, patient stated he had severe episode of vertigo while laying down. Patient denied chest pain, palpitations numbness or tingling. Admitted for further management, CT head reviewed and without acute changes. Carotid doppler completed, negative and without HD significant stenosis, reviewed and discussed in detail. Has been started on Meclezine and getting IV fluids for dizziness. States his dizzyness is improved and reports no symptoms this AM. Cardiology note reviewed, plan is for ASA, per notes and conversation with cards this AM, low risk based on CHADS-VASC score and ASA would be acceptable. Preference for AC though patient refuses. Neurologically remains stable and without complaints. Active Medications Albuterol/Ipratropium (Duoneb -) 1 amp NEB Q6H PRN PRN Reason: SHORTNESS OF BREATH Last Admin: 08/04/18 07:47 Dose: 1 amp Aspirin (Ecotrin -) 81 mg PO DAILY [facility] Last Admin: 08/05/18 12:58 Dose: 81 mg Diltiazem HCl (Cardizem Cd -) 120 mg PO DAILY [facility] Last Admin: 08/05/18 09:13 Dose: 120 mg HCTZ/Losartan Potassium (Hyzaar -) 1 tab PO DAILY [facility] Last Admin: 08/05/18 09:12 Dose: 1 tab Heparin Sodium (Porcine) (Heparin -) 5,000 unit SQ BID [facility] Last Admin: 08/05/18 21:35 Dose: 5,000 unit Meclizine HCl (Antivert -) 25 mg PO Q6HPO [facility] Last Admin: 08/06/18 09:02 Dose: Not Given Metoprolol Tartrate (Lopressor -) 25 mg PO BID [facility] Last Admin: 08/05/18 21:36 Dose: 25 mg Physicial Exam Vital Signs Period Temp Pulse Resp BP Sys/Dockery Pulse Ox Last 24 Hr 97.2 F-98 F 54-114 17-20 130-142/69-85 96-96 GENERAL: The patient is in no acute distress. HEAD: Normal with no signs of trauma. EYES: PERRLA, EOMI, sclera anicteric, conjunctiva clear. ENT: Ears normal, nares patent, oropharynx clear without exudates. Moist mucous membranes. NECK: Normal range of motion, supple without lymphadenopathy, JVD, or masses. LUNGS: Breath sounds equal, clear to auscultation bilaterally. No wheezes, and no crackles. HEART:Regular rate and rhythm, normal S1 and S2 without murmur, rub or gallop. ABDOMEN: Soft, nontender, normoactive bowel sounds. No guarding, no rebound. No masses palpable. EXTREMITIES: Normal range of motion, no edema. No clubbing or cyanosis. No erythema, or tenderness. NEUROLOGICAL: Cranial nerves II through XII grossly intact. Normal speech. No focal neurological deficits. MUSCULOSKELETAL: Back non-tender to palpation, no CVA tenderness SKIN: Warm, Dry, normal turgor, no rashes or lesions noted. Laboratory Value CBCD WBC 8.5 K/mm3 (4.0-10.0) 08/02/18 06:30 RBC 5.47 M/mm3 (4.00-5.60) 08/02/18 06:30 Hgb 15.3 GM/dL (11.7-16.9) 08/02/18 06:30 Hct 48.3 % (35.4-49) 08/02/18 06:30 MCV 88.3 fl (80-96) 08/02/18 06:30 MCHC 31.6 g/dl (32.0-35.9) L 08/02/18 06:30 RDW 14.6 % (11.9-15.9) 08/02/18 06:30 Plt Count 196 K/MM3 (134-434) 08/02/18 06:30 MPV 10.2 fl (7.5-11.1) 08/02/18 06:30 CMP Sodium 139 mmol/L (136-145) 08/04/18 17:00 Potassium 3.5 mmol/L (3.5-5.1) 08/04/18 17:00 Chloride 103 mmol/L (98-107) 08/04/18 17:00 Carbon Dioxide 26 mmol/L (21-32) 08/04/18 17:00 Anion Gap 10 MMOL/L (8-16) 08/04/18 17:00 BUN 16 mg/dL (7-18) 08/04/18 17:00 Creatinine 1.0 mg/dL (0.55-1.3) 08/04/18 17:00 Creat Clearance w eGFR > 60 (>60) 08/04/18 17:00 Random Glucose 108 mg/dL (74-106) H 08/04/18 17:00 Calcium 9.1 mg/dL (8.5-10.1) 08/04/18 17:00 Total Bilirubin 0.4 mg/dL (0.2-1) 08/02/18 06:30 AST 27 U/L (15-37) 08/02/18 06:30 ALT 46 U/L (13-61) 08/02/18 06:30 Alkaline Phosphatase 76 U/L (45-117) 08/02/18 06:30 Total Protein 7.1 g/dl (6.4-8.2) 08/02/18 06:30 Albumin 3.7 g/dl (3.4-5.0) 08/02/18 06:30 CARDIAC ENZYMES Creatine Kinase 355 IU/L (26-308) H 08/04/18 05:30 Troponin I 0.07 ng/ml (0.00-0.05) H 08/04/18 05:30 Diagnostic: Head CT - completed and reviewed Carotid Doppler - completed Plan/Assessment 58 year old male who presented to the ER with a complaint of vertigo for several weeks prior to admission. Medical history includes PMH, AFib. On day of admission, patient stated he had severe episode of vertigo while laying down. Patient denied chest pain, palpitations numbness or tingling. Admitted for further management, CT head reviewed and without acute changes. Has been started on Meclezine and getting IV fluids for dizziness. Cardiology note reviewed, plan is for ASA, per notes and conversation with cards this AM, low risk based on CHADS-VASC score and ASA would be acceptable. Preference for AC though patient refuses. Neurologically remains stable and without complaints. DVT ppx. Neurologically improved at this time.
[2018-08-06] MEDS ORDERED: PT OWN MED DRAWER 7, Y5N ONE (09:45)
[2018-08-06] MEDS: HEPARIN NA (PORCINE) 5,000 UNITS/ML 1ML VIAL SQ SCH (10:02)
[2018-08-06] MEDS: METOPROLOL TARTRATE 25 MG TABLET (FP) PO SCH (10:02)
[2018-08-06] MEDS: LOSARTAN 50MG/HCTZ 12.5MG 1 TAB (FP) PO SCH (10:02)
[2018-08-06] MEDS: ASPIRIN COATED 81 MG TABLET.EC PO SCH (10:02)
--- NOTE | 2018-08-06 16:40 | PDOC ---
NIH Stroke Scale - Initial Evaluation Level of consciousness: Alert Ask patient the month and their age: Answers both correctly Ask patient to open & close eyes; make fist and let go: Obeys both correctly Best gaze (horizontal eye movement): Normal Visual field testing: No visual field loss Facial paresis (Show teeth/raise eyebrows/close eyes tight): Normal symmetrical movement Motor Function: Left Arm: Normal Motor Function: Right Arm: Normal (extends arm 90 (or 45) degrees for 10 seconds without drift Motor Function: Left Leg: Normal (extends leg 30 degrees for 5 seconds without drift) Motor Function: Right Leg: Normal (extends leg 30 degrees for 5 seconds without drift) Limb Ataxia: No ataxia Sensory(Use pinprick test arms,legs,trunk,face/side to side): Normal Best language (Describe picture, name items, read sentences): No Aphasia Dysarthria (read several words): Normal articulation Extinction and Inattention: No abnormality - Total Score NIH Stroke Scale Score: 0
== END 2018-08-06 14:03 | disposition home or self-care (01) | DRG 201 ==
LOC: JER 13:04 → JERBED 17:40 → J4W 08-02 03:02
PROVIDERS: ADMIT Internal Medicine; ATTEND Internal Medicine
DX: I48.91 Unspecified atrial fibrillation (principal); J45.909 Unspecified asthma, uncomplicated; R42 Dizziness and giddiness; R79.89 Other specified abnormal findings of blood chemistry; I10 Essential (primary) hypertension; I24.8 Other forms of acute ischemic heart disease
CPT/HCPCS: 36415; 70450-TC; 71045-TC-FY; 78452-TC; 80048; 80053; 82550; 82553; 83880; 84443; 84484; 85025; 85610; 85730; 93005; 93010; 93017; 93306-TC; 93880-TC; 94640; 99285-25; A9502; J1644; J2785; J7030

== ENCOUNTER 2019-04-16 11:38 | Emergency (ER) | payer OTHER ==
[2019-04-16 12:01] VITALS: BP 172/81; PULSE 75; TEMP 98.2; BMI 31.5
--- NOTE | 2019-04-16 13:09 | PDOC ---
History of Present Illness - General Chief Complaint: Cold Symptoms Stated Complaint: CONGESTION Time Seen by Provider: 04/16/19 12:13 History Source: Patient Exam Limitations: No Limitations - History of Present Illness Initial Comments: 04/16/19 13:18 Chief complaint: Cough and cold Patient 58-year-old male with history of hypertension states he's had cold and cough for 2 days, no fever. Patient may have a history of A. fib. Patient states states he did not take his blood pressure medicine this morning but he usually takes it every day. Patient appears comfortable. GENERAL/CONSTITUTIONAL: No fever, weakness. dizziness HEAD, EYES, EARS, NOSE AND THROAT: No change in vision. No ear pain or discharge. No sore throat.+rhinorrhea CARDIOVASCULAR: No chest pain RESPIRATORY: No shortness of breath, +cough GASTROINTESTINAL: No pain, nausea, vomiting, diarrhea or constipation GENITOURINARY: No dysuria MUSCULOSKELETAL: No neck or back pain SKIN: No rash NEUROLOGIC: No headache, vertigo, loss of consciousness, or loss of sensation. GENERAL: The patient is awake, alert, and fully oriented, in no acute distress. HEAD: Normal with no signs of trauma. EYES: Pupils equal, round and reactive to light, sclera anicteric, conjunctiva clear. ENT: pharynx: no erythema, no exudate, uvula midline NECK: supple CHEST: clear, frequent coughing, nontender, rr ABD: soft, nontender BACK: no tenderness or signs of injury EXTREMITIES: Normal range of motion, no edema. NEUROLOGICAL: Normal speech, normal gait. SKIN: Warm, Dry Is this a multiple visit Asthma Patient?: No Past History - Past Medical History Allergies/Adverse Reactions: Allergies Allergy/AdvReac Type Severity Reaction Status Date / Time No Known Allergies Allergy Verified 04/16/19 12:01 Home Medications: Ambulatory Orders Aspirin Coated [Ecotrin -] 81 mg PO DAILY #30 tablet.ec 08/06/18 Diltiazem Cd [Cardizem Cd -] 120 mg PO DAILY #30 cap.cd.24h 08/06/18 Losartan 50Mg/Hctz 12.5MG [Hyzaar -] 1 tab PO DAILY #30 tablet 08/06/18 Meclizine HCl [Antivert -] 25 mg PO Q6HPO #30 tablet 08/06/18 Metoprolol Tartrate [Lopressor -] 25 mg PO BID #60 tablet 08/06/18 Prednisone [Deltasone] 20 mg PO BID #8 tablet 04/16/19 Asthma: Yes Cardiac Disorders: Yes (a fib in past) COPD: No HTN: Yes - Immunization History Immunization Up to Date: Yes - Psycho Social/Smoking Cessation Hx Smoking Status: No Smoking History: Never smoked Have you smoked in the past 12 months: No Number of Cigarettes Smoked Daily: 0 Information on smoking cessation initiated: No Hx Alcohol Use: No Drug/Substance Use Hx: No Substance Use Type: None Hx Substance Use Treatment: No *Physical Exam - Vital Signs Last Vital Signs Temp Pulse Resp BP Pulse Ox 98.2 F 75 18 172/81 H 98 04/16/19 11:58 04/16/19 11:58 04/16/19 11:58 04/16/19 11:58 04/16/19 11:58 Medical Decision Making - Medical Decision Making 04/16/19 13:22 58-year-old male with history of hypertension, questionable A. fib, patient also after asking said he does have a history of asthma and uses a nebulizer last night which helped a little bit. He's been taking cough medicine, Robitussin. Patient has no fever and has a lot of nasal congestion and frequent coughing. We'll give patient DuoNeb and start on prednisone. No indication for imaging or workup. Patient feels better after one treatment, no indication Discussed issues, findings, results, applicable medications and treatments and follow-up. All these were understood and all questions were answered 04/16/19 15:21 Discharge - Discharge Information Problems reviewed: Yes Clinical Impression/Diagnosis: Upper respiratory infection Qualifiers: URI type: unspecified URI Qualified Code(s): J06.9 - Acute upper respiratory infection, unspecified Condition: Stable Disposition: HOME - Admission No - Additional Discharge Information Prescriptions: Prednisone [Deltasone] 20 mg PO BID #8 tablet Prescription Drug Monitoring Program (I-STOP) results: I-STOP not reviewed - Follow up/Referral - Patient Discharge Instructions Patient Printed Discharge Instructions: DI for Viral Upper Respiratory Infection -- Adult Additional Instructions: Drink 2-3 L of water daily Take Tylenol 650 mg every 4 hours or Motrin 600 mg every 6 hours for fever and pain Return to the nearest ER if short of breath, unable to swallow or feeling sicker Followup with your doctor in one to 2 days Use albuterol inhaler, 2 puffs every 4 hours as needed for wheezing. Take prednisone 40 mg once daily until finished. Return to the ER if fever, shortness of breath or getting sicker. Otherwise follow-up with your doctor in one to 2 days - Post Discharge Activity
[2019-04-16] MEDS ORDERED: predniSONE 20 MG TABLET (UD) PO ONE (13:14)
[2019-04-16] MEDS ORDERED: ALBUTEROL SO4 2.5/IPRATROPIUM 0.5 INH SOL 3 ML VIAL.NEB. NEB ONE ×2 (13:14→13:18)
[2019-04-16] MEDS ORDERED: predniSONE 20 MG TABLET (UD) ONE (13:18)
== END 2019-04-16 13:41 | disposition home or self-care (01) ==
LOC: JERFT 11:38
PROC: 3E0F7GC Introduction of Other Therapeutic Substance into Respiratory Tract, Via Natural or Artificial Opening (ICD-10-PCS; principal; 2019-04-16)
DX: J06.9 Acute upper respiratory infection, unspecified (principal); I10 Essential (primary) hypertension; J45.909 Unspecified asthma, uncomplicated; Z86.79 Personal history of other diseases of the circulatory system
CPT/HCPCS: 99281-25

== ENCOUNTER 2020-01-06 15:34 | Inpatient (IN) | payer OTHER ==
[2020-01-06] MEDS ORDERED: ASPIRIN 81 MG CHEWABLE TABLETS PO ONE (16:17)
[2020-01-06] MEDS ORDERED: LACTATED RINGERS SOLUTION 1000 ML INFUS.BAG IV ONE (16:18)
[2020-01-06 16:59] LABS: BASO % 0.4 % (0-2.0); EOS % 2.4 % (0-4.5); HEMATOCRIT 44.3 % (35.4-49); HEMOGLOBIN 14.3 GM/dL (11.7-16.9); LYMPH % 18.5 % (8-40); MCH 28.3 pg (25.7-33.7); MCHC 32.4 g/dl (32.0-35.9); MEAN CELL VOLUME 87.6 fl (80-96); MEAN PLT VOLUME 10.3 fl (7.5-11.1); MONO % 10.8 % (3.8-10.2); NEUT % 67.9 % (42.8-82.8); PLATELET COUNT 188 K/MM3 (134-434); RBC 5.06 M/mm3 (4.00-5.60); RDW 13.9 % (11.9-15.9); WHITE BLOOD COUNT 7.6 K/mm3 (4.0-10.0)
[2020-01-06 17:03] LABS: INR 0.97 (0.83-1.09); PROTHROMBIN TIME (PATIENT) 11.4 SEC (9.7-13.0)
[2020-01-06] MEDS ORDERED: ASPIRIN 81 MG CHEWABLE TABLETS ONE (17:15)
[2020-01-06 17:18] LABS: PH,URINE 7.5 (5.0-8.0); URINE APPEARANCE CLEAR; URINE BILIRUBIN NEGATIVE (NEGATIVE); URINE COLOR YELLOW; URINE GLUCOSE (UA) NEGATIVE (NEGATIVE); URINE KETONE NEGATIVE (NEGATIVE); URINE LEUK ESTERASE NEGATIVE (NEGATIVE); URINE NITRITE NEGATIVE (NEGATIVE); URINE PROTEIN NEGATIVE (NEGATIVE); URINE UROBILINOGEN 0.2 mg/dL (0.2-1.0)
[2020-01-06 17:25] LABS: BILIRUBIN,TOTAL 0.4 mg/dL (0.2-1); BLOOD UREA NITROGEN 9.2 mg/dL (7-18); CALCIUM 8.8 mg/dL (8.5-10.1); CREATININE 1.1 mg/dL (0.55-1.3); MAGNESIUM 2.3 mg/dL (1.8-2.4); POTASSIUM 3.8 mmol/L (3.5-5.1); TOT PROT 7.4 g/dl (6.4-8.2)
[2020-01-06] MEDS ORDERED: hydrALAZINE HCL 20 MG/ML VIAL IVPUSH ONE (21:59)
[2020-01-06 22:48] VITALS: BMI 34.0
[2020-01-07 06:35] LABS: BASO % 0.5 % (0-2.0); EOS % 4.3 % (0-4.5); HEMATOCRIT 43.7 % (35.4-49); HEMOGLOBIN 14.4 GM/dL (11.7-16.9); LYMPH % 22.3 % (8-40); MCH 28.8 pg (25.7-33.7); MCHC 32.9 g/dl (32.0-35.9); MEAN CELL VOLUME 87.6 fl (80-96); MEAN PLT VOLUME 10.7 fl (7.5-11.1); MONO % 9.7 % (3.8-10.2); NEUT % 63.2 % (42.8-82.8); PLATELET COUNT 186 K/MM3 (134-434); RBC 4.99 M/mm3 (4.00-5.60); RDW 14.2 % (11.9-15.9); WHITE BLOOD COUNT 7.7 K/mm3 (4.0-10.0)
[2020-01-07 06:57] LABS: ALBUMIN 3.6 g/dl (3.4-5.0); BILIRUBIN,TOTAL 0.4 mg/dL (0.2-1); CALCIUM 8.6 mg/dL (8.5-10.1); CREATININE 1.2 mg/dL (0.55-1.3); POTASSIUM 3.8 mmol/L (3.5-5.1); TOT PROT 6.9 g/dl (6.4-8.2)
[2020-01-07] MEDS: HEPARIN NA (PORCINE) 5,000 UNITS/ML 1ML VIAL SQ SCH ×2 (09:49→21:37)
[2020-01-07] MEDS ORDERED: ASPIRIN COATED 81 MG TABLET.EC PO SCH (10:00)
[2020-01-07] MEDS ORDERED: dilTIAZem HCL 50 MG/10 ML - 10 ML VIAL IVPUSH ONE (14:20)
[2020-01-07] MEDS ORDERED: dilTIAZem HCL 50 MG/10 ML - 10 ML VIAL IVPUSH PRN (14:20)
[2020-01-07] MEDS ORDERED: dilTIAZem HCL 60 MG TABLET PO ONE (14:46)
[2020-01-07] MEDS: APIXABAN 5 MG TABLET PO SCH ×2 (16:14→21:37)
[2020-01-07] MEDS ORDERED: ACETAMINOPHEN 325 MG TABLET (FP) PO ONE (17:30)
[2020-01-08 07:12] LABS: BASO % 0.3 % (0-2.0); EOS % 2.5 % (0-4.5); HEMATOCRIT 50.1 % (35.4-49); HEMOGLOBIN 16.5 GM/dL (11.7-16.9); LYMPH % 22.7 % (8-40); MCH 28.9 pg (25.7-33.7); MEAN CELL VOLUME 87.6 fl (80-96); MEAN PLT VOLUME 10.5 fl (7.5-11.1); MONO % 8.8 % (3.8-10.2); NEUT % 65.7 % (42.8-82.8); PLATELET COUNT 208 K/MM3 (134-434); RBC 5.72 M/mm3 (4.00-5.60); RDW 14.2 % (11.9-15.9); WHITE BLOOD COUNT 7.8 K/mm3 (4.0-10.0)
[2020-01-08 07:32] LABS: ALBUMIN 3.9 g/dl (3.4-5.0); BILIRUBIN,TOTAL 0.6 mg/dL (0.2-1); BLOOD UREA NITROGEN 14.2 mg/dL (7-18); CALCIUM 9.3 mg/dL (8.5-10.1); CREATININE 1.1 mg/dL (0.55-1.3); POTASSIUM 3.9 mmol/L (3.5-5.1); TOT PROT 7.6 g/dl (6.4-8.2)
[2020-01-08] MEDS: APIXABAN 5 MG TABLET PO SCH ×2 (09:22→21:47)
[2020-01-08] MEDS: HEPARIN NA (PORCINE) 5,000 UNITS/ML 1ML VIAL SQ SCH (09:22)
[2020-01-08] MEDS: ATORVASTATIN CA 20 MG TABLET (FP) PO SCH (21:47)
[2020-01-09] MEDS: APIXABAN 5 MG TABLET PO SCH ×2 (09:27→21:34)
[2020-01-09] MEDS: QUINAPRIL HCL 10 MG TABLET PO SCH (20:21)
[2020-01-09] MEDS: ATORVASTATIN CA 20 MG TABLET (FP) PO SCH (21:34)
[2020-01-10] MEDS: APIXABAN 5 MG TABLET PO SCH ×2 (09:06→21:25)
[2020-01-10] MEDS: QUINAPRIL HCL 10 MG TABLET PO SCH (09:06)
[2020-01-10] MEDS: ATORVASTATIN CA 20 MG TABLET (FP) PO SCH (21:25)
[2020-01-11 07:44] LABS: BASO % 0.3 % (0-2.0); EOS % 2.6 % (0-4.5); HEMATOCRIT 46.1 % (35.4-49); HEMOGLOBIN 15.2 GM/dL (11.7-16.9); LYMPH % 23.3 % (8-40); MCH 28.9 pg (25.7-33.7); MCHC 32.9 g/dl (32.0-35.9); MEAN CELL VOLUME 87.7 fl (80-96); MEAN PLT VOLUME 10.7 fl (7.5-11.1); MONO % 9.5 % (3.8-10.2); NEUT % 64.3 % (42.8-82.8); PLATELET COUNT 197 K/MM3 (134-434); RBC 5.25 M/mm3 (4.00-5.60); RDW 13.6 % (11.9-15.9); WHITE BLOOD COUNT 8.8 K/mm3 (4.0-10.0)
[2020-01-11] MEDS ORDERED: PT OWN MED DRAWER 7, Y5N ONE ×2 (07:54→08:44)
[2020-01-11] MEDS: QUINAPRIL HCL 10 MG TABLET PO SCH ×2 (08:06→10:08)
[2020-01-11 08:12] LABS: BLOOD UREA NITROGEN 17.8 mg/dL (7-18); CALCIUM 9.1 mg/dL (8.5-10.1); POTASSIUM 4.1 mmol/L (3.5-5.1)
[2020-01-11 08:18] LABS: BILIRUBIN,TOTAL 0.8 mg/dL (0.2-1); CREATININE 1.1 mg/dL (0.55-1.3); TOT PROT 7.3 g/dl (6.4-8.2)
[2020-01-11] MEDS: APIXABAN 5 MG TABLET PO SCH ×2 (11:52→21:55)
[2020-01-11] MEDS: ATORVASTATIN CA 20 MG TABLET (FP) PO SCH (21:55)
[2020-01-12 08:46] VITALS: TEMP 97.6
[2020-01-12] MEDS ORDERED: QUINAPRIL HCL 20 MG TABLET PO SCH (10:00)
[2020-01-12] MEDS ORDERED: PT OWN MED DRAWER 7, Y5N ONE (10:06)
[2020-01-12] MEDS: APIXABAN 5 MG TABLET PO SCH (10:53)
[2020-01-12 17:40] VITALS: BP 138/89; PULSE 55
== END 2020-01-12 20:00 | disposition short-term general hospital (02) | DRG 201 ==
LOC: SUPCPDRO 15:34 → JER 15:34 → JERBED 17:39 → J4W 21:47
PROVIDERS: ADMIT Internal Medicine; ATTEND Internal Medicine
DX: I48.0 Paroxysmal atrial fibrillation (principal); I25.10 Atherosclerotic heart disease of native coronary artery without angina pectoris; J45.20 Mild intermittent asthma, uncomplicated; G47.33 Obstructive sleep apnea (adult) (pediatric); I11.0 Hypertensive heart disease with heart failure; I50.32 Chronic diastolic (congestive) heart failure; E11.9 Type 2 diabetes mellitus without complications; E78.5 Hyperlipidemia, unspecified; E66.9 Obesity, unspecified; Z68.34 Body mass index [BMI] 34.0-34.9, adult
CPT/HCPCS: 36415; 71046-TC-FY; 78452-TC; 80053; 80061; 81003; 82550; 82553; 83036; 83721; 83735; 84436; 84443; 84484; 85025; 85610; 93005; 93010; 93017; 93306-TC; 99285-25; A9502; J1644; U0003

== ENCOUNTER 2020-04-29 09:41 | Inpatient (IN) | payer OTHER ==
[2020-04-29 09:50] VITALS: BMI 31.7
--- NOTE | 2020-04-29 10:07 | PDOC ---
History of Present Illness - General Chief Complaint: Irregular Heart Beat Stated Complaint: DIZZINESS/RT ARM NUMBNESS Time Seen by Provider: 04/29/20 10:00 - History of Present Illness Initial Comments: 04/29/20 10:06 HPI: This is a 60 y/o male with a PMH of HTN, HLD, CHF, paroxysmal Afib (on Carvedilol, eliquis, ASA) and asthma presenting to the ED due to an episode of lightheadedness that happened this morning while he was at [employer]. He said that all of a sudden he felt like was going to pass out. He denied any associated chest pain, SOB, palpitations, numbness. Patient was able to sit down, no LOC, did not hit head. He is also complaining of R. arm numbness/tingling pain for the past week. Patient works with sheet metal. The pain has been constant for the past week, radiates from shoulder down to the tips of his finges. He says its worse with abduction of his shoulder. Patient was admitted in December for palpitations, elevated troponin. He had a nuclear stress test done with abnormal myocardial perfusion suggesting inferior ischemia. Was transferred for a cath, but it showed 49% blockage and there was no stent placed Patient is currently without any chest pain, palpitations, sob, n/v, abdominal pain. ROS: GENERAL/CONSTITUTIONAL: No fever/chills, diaphoresis, Yes generalized weakness. HEENT: No change in vision. No ear pain. No sore throat. CARDIOVASCULAR: No chest pain, palpitations or peripheral edema RESPIRATORY: No shortness of breath, dyspnea with exertion, cough, wheezing, or hemoptysis. GASTROINTESTINAL: No abdominal pain, nausea, vomiting, diarrhea or constipation. GENITOURINARY: Yes dysuria and increased frequency MUSCULOSKELETAL: No joint or muscle swelling or pain. SKIN: No rash or hives NEUROLOGIC: No headache, vertigo, focal weakness, loss of consciousness, or change in strength/sensation. ENDOCRINE: No increased thirst. No unexplained weight loss. HEMATOLOGIC/LYMPHATIC: No anemia, easy bleeding, or history of blood clots. PMH: HTN, HLD, CHF, paroxysmal Afib (on Carvedilol, eliquis, ASA) and asthma PSx: Denied Social Hx: Denied etoh, tobacco, drug use Meds: See nurse note Allergies: See nurse note PE: GENERAL: Awake, alert, and fully oriented, in no acute distress. Patient is appropriately conversational. No increased work of beathing. HEENT: Normocephalic, atraumatic. PERRLA, EOMI. No conjunctival pallor. Moist mucous membranes. NECK: Normal ROM and supple. No lymphadenopathy, JVD, or masses. CARDIOVASCULAR: Afib rate controlled, normal S1 and S2, no murmurs, rubs or gallops. Peripheral pulses intact in bilateral upper and lower extremities. PULMONARY: No respiratory distress. Breath sounds equal, clear to auscultation bilaterally. No wheezes, rales or rhonchi. ABDOMEN: Soft, nontender, normoactive bowel sounds. No guarding, no rebound. No masses EXTREMITIES: Normal range of motion, no edema or erythema, no calf tenderness. Peripheral pulses intact. NEUROLOGICAL: Cranial nerves II through XII grossly intact. Normal speech, normal gait. NIH stroke scale 0. Sensation and motor intact in bilateral upper and lower extremities. No face droop. Normal FTN. SKIN: Warm, Dry, normal turgor, no rashes or lesions noted. Normal capillary refill. MDM: 04/29/20 10:55 This is a 60 y/o male with a PMH of HTN, HLD, CHF, paroxysmal Afib (on Carvedilol, eliquis, ASA) and asthma presenting to the ED due to an episode of lightheadedness that happened this morning while he was at [employer]. He said that all of a sudden he felt like was going to pass out. CBC, CMP, Mag, Cardiac profile EKG, CXR, UA Vitals stable on admission Vital Signs Temp Pulse Resp BP Pulse Ox 98 F 84 18 142/61 98 04/29/20 09:43 04/29/20 09:43 04/29/20 09:43 04/29/20 09:43 04/29/20 09:43 04/29/20 11:04 - CBC WNL - CK 547 - Trop .[address] and T wave abnormality Vent rate 86bpm QRS 86ms QTc 411ms CXR: No acute pathology 04/29/20 11:11 UA negative HEART score of 4. Would like to admit to tele obs 04/29/20 11:25 - Call put out to Dr. Erickson who admits for [facility] - Dr. Erickson would like a head CT - Patient admitted to tele-obs Past History - Medical History Allergies/Adverse Reactions: Allergies Allergy/AdvReac Type Severity Reaction Status Date / Time No Known Allergies Allergy Verified 04/29/20 09:43 Home Medications: Ambulatory Orders Aspirin Coated [Ecotrin -] 81 mg PO DAILY #30 tablet.ec 08/06/18 Diltiazem Cd [Cardizem Cd -] 120 mg PO DAILY #30 cap.cd.24h 08/06/18 Anemia: No Asthma: Yes Cancer: No Cardiac Disorders: Yes (Paroxysmal A-fib, Grade I diastolic dysfunction) CVA: No COPD: No CHF: No Dementia: No Diabetes: No GI Disorders: Yes (GERD) Disorders: No HTN: Yes Hypercholesterolemia: No Liver Disease: No Seizures: No Thyroid Disease: No - Surgical History Abdominal Surgery: No Appendectomy: No Cardiac Surgery: No Cholecystectomy: No Lung Surgery: No Neurologic Surgery: No Orthopedic Surgery: No - Immunization History Immunization Up to Date: Yes - Psycho-Social/Smoking History Smoking Status: No Smoking History: Never smoked Have you smoked in the past 12 months: No Number of Cigarettes Smoked Daily: 0 - Substance Abuse Hx (Audit-C & DAST Scrn) How often the patient has a drink containing alcohol: Monthly or less Number of drinks the patient has on a typical day: 1 or 2 How often the patient has six or more drinks on one occasion: Never Score: In Men: 4 or > Positive; In Women: 3 or > Positive: 1 Screen Result (Pos requires Nsg. Audit-10AR): Negative In the last yr the pt used illegal drug/Rx for NonMed reason: No Score: Yes response is considered Positive: 0 Screen Result (Positive result requires Nsg. DAST-10): Negative *Physical Exam - Vital Signs Last Vital Signs Temp Pulse Resp BP Pulse Ox 98 F 84 18 142/61 98 04/29/20 09:43 04/29/20 09:43 04/29/20 09:43 04/29/20 09:43 04/29/20 09:43 Heart Score/ECG Review - History History: Slightly suspicious - Electrocardiogram EKG: Non specific repolarization disturbance - Age Age: 45-65 - Risk Factors Based on the list above the patient has:: >/=3 risk factors or Hx atherosclerotic disease - Troponin Troponin: </= normal limit - Score Heart Score - Total: 4 ED Treatment Course - LABORATORY CBC & Chemistry Diagram: 04/29/20 10:15 04/29/20 10:15 - RADIOLOGY Radiology Studies Ordered: Category Date Time Status CHEST X-RAY PORTABLE* [RAD] Stat Radiology 04/29/20 10:00 Ordered Discharge - Discharge Information Problems reviewed: Yes Clinical Impression/Diagnosis: Paroxysmal A-fib, Exertional dyspnea Condition: Fair - Follow up/Referral - Patient Discharge Instructions - Post Discharge Activity
--- OUTSIDE RECORDS SUMMARY | 2020-04-29 10:20 | XMS ---
:1960 Author Organization [facility] Support Name Relationship Address Phone UE, UNEMPLOYED Unavailable Unavailable Unavailable UE Unavailable Unavailable Unavailable TERRA SIERRA [address] [place] [address] TERRA BAKER [address] [facility] [place] [address] TERRA BAKER Spouse [address] [place] [address] Re-disclosure Warning The records that you are about to access may contain information from federally- assisted alcohol or drug abuse programs. If such information is present, then the following federally mandated warning applies: This information has been disclosed to you from records protected by federal confidentiality rules (42 CFR part 2). The federal rules prohibit you from making any further disclosure of this information unless further disclosure is expressly permitted by the written consent of the person to whom it pertains or as otherwise permitted by 42 CFR part 2. A general authorization for the release of medical or other information is NOT sufficient for this purpose. The Federal rules restrict any use of the information to criminally investigate or prosecute any alcohol or drug abuse patient.The records that you are about to access may contain highly sensitive health information, the redisclosure of which is protected by Article 27-F of the [facility] Public Health law. If you continue you may haveaccess to information: Regarding HIV / AIDS; Provided by facilities licensed or operated by the [facility] Office of Mental Health; or Provided by the [facility] Office for People With Developmental Disabilities. If such information is present, then the following [facility] mandated warning applies: This information has been disclosed to you from confidential records which are protected by state law. State law prohibits you from making any further disclosure of this information without the specific written consent of the person to whom it pertains, or as otherwise permitted by law. Any unauthorized further disclosure in violation of state law may result in a fine or group home sentence or both. A general authorization for the release of medical or other information is NOT sufficient authorization for further disclosure. Insurance Providers Payer name Policy type Policy ID Covered Covered libertarian's Policy P stephany / Coverage libertarian ID relationship to Kahn Inf ormation type kahn KENNY [id number] SP [id number] 500 HEALTH NON CAP MEDICAID [id number] SP [id number] MEDICAID [id number] SP [id number] SELF PAY SP INSURANCE KENNY [id number] SP [id number] 500 HEALTH NON CAP Results ID Date Data Source [id number] 01/13/2020 08:55:00 AM EDT [facility] Name Value Range Interpretation Description Data Sup porting Code Source(s) Document(s ) 2019 Novel [facility] Coronavirus RNA Interpretation Unspecified Specimen Qualitative LAISHA Probe Detection This lab was ordered by [facility]-[id number] and reported by [facility]. ID Date Data Source [id number] 01/06/2020 04:35:00 PM EDT [facility] Name Value Range Interpretation Description Data Sup porting Code Source(s) Document(s ) SARS [facility] CORONAVIRUS 2 RNA This lab was ordered by [facility] and reported by [facility]. Procedure
[2020-04-29 10:39] LABS: BASO % 0.6 % (0-2.0); EOS % 2.3 % (0-4.5); HEMATOCRIT 47.8 % (35.4-49); HEMOGLOBIN 15.7 GM/dL (11.7-16.9); MCH 29.1 pg (25.7-33.7); MCHC 32.8 g/dl (32.0-35.9); MEAN CELL VOLUME 88.6 fl (80-96); MEAN PLT VOLUME 10.1 fl (7.5-11.1); MONO % 6.8 % (3.8-10.2); NEUT % 71.3 % (42.8-82.8); PLATELET COUNT 230 K/MM3 (134-434); RDW 14.6 % (11.9-15.9); WHITE BLOOD COUNT 8.5 K/mm3 (4.0-10.0)
[2020-04-29 10:50] LABS: PROTHROMBIN TIME (PATIENT) 11.8 SEC (9.7-13.0)
[2020-04-29 10:53] LABS: ACTIVATED PTT 34.1 SECONDS (25.2-36.5)
[2020-04-29 11:01] LABS: ALBUMIN 3.9 g/dl (3.4-5.0); BILIRUBIN,TOTAL 0.4 mg/dL (0.2-1); BLOOD UREA NITROGEN 22.4 mg/dL (7-18); CALCIUM 8.7 mg/dL (8.5-10.1); MAGNESIUM 2.4 mg/dL (1.8-2.4); POTASSIUM 4.5 mmol/L (3.5-5.1); TOT PROT 7.8 g/dl (6.4-8.2)
[2020-04-29 11:08] LABS: URINE APPEARANCE CLEAR; URINE BILIRUBIN NEGATIVE (NEGATIVE); URINE COLOR YELLOW; URINE GLUCOSE (UA) NEGATIVE (NEGATIVE); URINE KETONE TRACE (NEGATIVE); URINE LEUK ESTERASE NEGATIVE (NEGATIVE); URINE NITRITE NEGATIVE (NEGATIVE); URINE PROTEIN NEGATIVE (NEGATIVE); URINE UROBILINOGEN 0.2 mg/dL (0.2-1.0)
--- NOTE | 2020-04-29 12:07 | PDOC ---
Attending Attestation - Resident Resident Name: April Suresh - ED Attending Attestation I have performed the following: I have examined & evaluated the patient, The case was reviewed & discussed with the resident, I agree w/resident's findings & plan - HPI HPI: 04/29/20 12:00 60y/o M known CAD p/w exertional light-headedness and episode of near syncope today. Occasional palpitations, nonspecific arm tingling but no weakness or chest pain. - Physicial Exam PE: 04/29/20 12:03 vss alert, nad irreg irreg normal rate, lungs clear 2+ distal pulses, neuro intact - Medical Decision Making 04/29/20 12:03 60y/o M ACS risk factors and known non-obstructive CAD p/w near syncope and exertional lightheadedness. HD stable here with rate-controlled afib. ekg without acute ischemia labs, cxr asa, will need echo admit Heart Score/ECG Review #1 ECG reviewed & interpreted by me at: 09:54 General ECG Interpretation: Normal Rate (afib at 86), Normal Intervals (qtc 411), No acute ischemic changes Discharge - Discharge Information Problems reviewed: Yes Clinical Impression/Diagnosis: Paroxysmal A-fib, Exertional dyspnea Condition: Fair - Follow up/Referral Referrals: Wilfredo Stephen MD [Primary Care Provider] - - Patient Discharge Instructions - Post Discharge Activity
--- OUTSIDE RECORDS SUMMARY | 2020-04-29 12:15 | XMS ---
:1960 Author Organization [facility] Support Name Relationship Address Phone UE, UNEMPLOYED Unavailable Unavailable Unavailable UE Unavailable Unavailable Unavailable TERRA SIERRA [address] [facility] [place] [address] [address] [facility] [facility] [place] [place] [address] TERRA BAKER Spouse [address] [facility] [place] [address] Re-disclosure Warning The records that you are [...] is protected by Article 27-F of the [facility] Public Health law. If you continue you may haveaccess to information: Regarding HIV / AIDS; Provided by facilities licensed or operated by the [facility] Office of Mental Health; or Provided by the [facility] Office for People With Developmental Disabilities. If such information is present, then the following [facility] mandated warning applies: This information has [...] law may result in a fine or assisted sentence or both. A general authorization for the release of medical or other information is NOT sufficient authorization for further disclosure. Insurance Providers Payer name Policy type Policy ID Covered Covered alliance party's Policy P stephany / Coverage alliance party ID relationship to Kahn Inf ormation type kahn KENNY [id number] SP [id number] 500 HEALTH NON CAP MEDICAID [id number] SP [id number] MEDICAID [id number] SP [id number] SELF PAY SP INSURANCE KENNY [id number] SP [id number] 500 HEALTH NON CAP Results ID Date Data Source [id number] 01/13/2020 08:55:00 AM EDT [facility] Name Value Range Interpretation Description Data Sup porting Code Source(s) Document(s ) 2019 Novel [facility] Coronavirus RNA Interpretation Unspecified Specimen Qualitative LAISHA Probe Detection This lab was ordered by [facility]-[id number] and reported by [facility]. ID Date Data Source [id number] 01/06/2020 04:35:00 PM EDT [facility] Name Value Range Interpretation Description Data Sup porting Code Source(s) Document(s ) SARS [facility] CORONAVIRUS 2 RNA This lab was ordered by [facility] and reported by [facility]. Procedure
--- NOTE | 2020-04-29 14:47 | EKG ---
Test Reason : Blood Pressure : / mmHG Vent. Rate : 086 BPM Atrial Rate : 500 BPM P-R Int : 000 ms QRS Dur : 086 ms QT Int : 344 ms P-R-T Axes : 000 030 015 degrees QTc Int : 411 ms ATRIAL FIBRILLATION NONSPECIFIC ST AND T WAVE ABNORMALITY ABNORMAL ECG Confirmed by SHELBI JETT MD ([id number]) on 04/29/2020 2:47:17 PM Referred By: Confirmed By:SHELBI JETT MD
[2020-04-29] MEDS ORDERED: DEXTROSE 5%-0.45% SALINE 1,000 ML IV SCH (21:45)
--- NOTE | 2020-04-29 21:47 | HP ---
Admitting History and Physical - Admission History of Present Illness: Pt is a 60 y/o male with PMH significant for HTN, HLD, CHF, paroxysmal Afib (on Carvedilol, eliquis, ASA) and asthma presenting to the ED due to an episode of lightheadedness that happened in the morning while he was at [employer]. He said that all of a sudden he felt like was going to pass out. He denied any associated chest pain, SOB, palpitations, numbness. Patient was able to sit down, no LOC, did not hit head. He is also complaining of R. arm numbness/tingling pain for the past week. Patient works with sheet metal. The pain has been constant for the past week, radiates from shoulder down to the tips of his finges. He says its worse with abduction of his shoulder. Patient was admitted in December for palpitations, elevated troponin. He had a nuclear stress test done with abnormal myocardial perfusion suggesting inferior ischemia. Was transferred for a cath, but it showed 49% blockage and there was no stent placed - Past Medical History Cardiovascular: Yes: AFIB, CHF (diastolic), HTN, Hyperlipdemia Pulmonary: Yes: Asthma - Smoking History Smoking history: Never smoked Have you smoked in the past 12 months: No Aproximately how many cigarettes per day: 0 - Alcohol/Substance Use Hx Alcohol Use: Yes (1 DRINK A MONTH) Home Medications - Allergies Allergies/Adverse Reactions: Allergies Allergy/AdvReac Type Severity Reaction Status Date / Time No Known Allergies Allergy Verified 04/29/20 09:43 - Home Medications Home Medications: Ambulatory Orders Aspirin Coated [Ecotrin -] 81 mg PO DAILY #30 tablet.ec 08/06/18 Diltiazem Cd [Cardizem Cd -] 120 mg PO DAILY #30 cap.cd.24h 08/06/18 Family Medical History Family History: Unremarkable Review of Systems - Review of Systems Constitutional: reports: Weakness Eyes: reports: No Symptoms HENT: reports: No Symptoms Neck: reports: No Symptoms Cardiovascular: reports: No Symptoms Respiratory: reports: No Symptoms Gastrointestinal: reports: No Symptoms Genitourinary: reports: No Symptoms Physical Examination Vital Signs: Vital Signs Temperature 98.4 F 04/29/20 19:38 Pulse Rate 70 04/29/20 19:38 Respiratory Rate 18 04/29/20 19:38 Blood Pressure 116/71 04/29/20 19:38 O2 Sat by Pulse Oximetry (%) 98 04/29/20 19:38 Constitutional: Yes: Well Nourished Eyes: Yes: WNL HENT: Yes: WNL Neck: Yes: WNL, Supple Cardiovascular: Yes: WNL, Regular Rate and Rhythm Respiratory: Yes: WNL, Regular, CTA Bilaterally Gastrointestinal: Yes: WNL, Normal Bowel Sounds, Soft, Abdomen, Obese Musculoskeletal: Yes: WNL Extremities: Yes: WNL Edema: No Neurological: Yes: WNL, Alert, Oriented ...Motor Strength: WNL Labs: CBC, BMP 04/29/20 10:15 04/29/20 10:15 Problem List - Problems (1) Near syncope Assessment/Plan: Admitted to tele ?Orthostatic hypotension Cardio consult Monitor CPK/Troponin Code(s): R55 - SYNCOPE AND COLLAPSE (2) HTN (hypertension) Assessment/Plan: Bp slightly hypotensive Cont to monitor Code(s): I10 - ESSENTIAL (PRIMARY) HYPERTENSION Qualifiers: Hypertension type: unspecified Qualified Code(s): I10 - Essential (primary) hypertension (3) CHF (congestive heart failure) Assessment/Plan: Pt not on diuretic Code(s): I50.9 - HEART FAILURE, UNSPECIFIED (4) HLD (hyperlipidemia) Code(s): E78.5 - HYPERLIPIDEMIA, UNSPECIFIED (5) Paroxysmal A-fib Assessment/Plan: Heart rate stable Cont Cardizem Code(s): I48.0 - PAROXYSMAL ATRIAL FIBRILLATION (6) Asthma Assessment/Plan: Stable Code(s): J45.909 - UNSPECIFIED ASTHMA, UNCOMPLICATED Qualifiers: Asthma severity: mild intermittent Asthma complication type: uncomplicated
[2020-04-29] MEDS: HEPARIN NA (PORCINE) 5,000 UNITS/ML 1ML VIAL SQ SCH (22:30)
[2020-04-30 06:48] LABS: BASO % 0.3 % (0-2.0); EOS % 2.7 % (0-4.5); HEMATOCRIT 45.8 % (35.4-49); HEMOGLOBIN 15.2 GM/dL (11.7-16.9); LYMPH % 24.8 % (8-40); MCH 29.2 pg (25.7-33.7); MCHC 33.1 g/dl (32.0-35.9); MEAN CELL VOLUME 88.2 fl (80-96); MONO % 10.7 % (3.8-10.2); NEUT % 61.5 % (42.8-82.8); PLATELET COUNT 204 K/MM3 (134-434); RBC 5.19 M/mm3 (4.00-5.60); RDW 14.7 % (11.9-15.9); WHITE BLOOD COUNT 8.1 K/mm3 (4.0-10.0)
[2020-04-30 07:16] LABS: ALBUMIN 3.6 g/dl (3.4-5.0); BILIRUBIN,TOTAL 0.6 mg/dL (0.2-1); BLOOD UREA NITROGEN 18.6 mg/dL (7-18); CALCIUM 8.4 mg/dL (8.5-10.1); POTASSIUM 4.2 mmol/L (3.5-5.1); TOT PROT 6.8 g/dl (6.4-8.2)
[2020-04-30] MEDS: ASPIRIN COATED 81 MG TABLET.EC PO SCH (10:35)
[2020-04-30] MEDS: HEPARIN NA (PORCINE) 5,000 UNITS/ML 1ML VIAL SQ SCH ×2 (10:37→21:50)
--- NOTE | 2020-04-30 15:02 | CON.CARD ---
Cardiology Consult (text) - Consultation Consultation Note: Coverage for Dr. Nila Leigh Chief Complaint: Events noted, notes reviewed, resting in bed, denies any recurrent dizziness/lightheadedness, denies any chest discomfort or dyspnea History of Present Illness: Seen and examined on telemetry. Full consult dictated Medications: Current Medications Generic Name Dose Route Start Last Admin Trade Name Tawanna PRN Reason Stop Dose Admin Aspirin 81 mg 04/30/20 10:00 04/30/20 10:35 Ecotrin - PO 81 mg DAILY JADYN Administration Diltiazem HCl 120 mg 04/29/20 21:45 04/30/20 10:35 Cardizem Cd - PO 120 mg DAILY JADYN Administration Heparin Sodium (Porcine) 5,000 unit 04/29/20 22:00 04/30/20 10:37 Heparin - SQ 5,000 unit BID JADYN Administration Review of Systems Constitutional: denies Chills or Fever Respiratory: denies: Dyspnea, Cough Cardiovascular: As noted above Gastrointestinal: denies Nausea, Vomiting, Diarrhea or Constipation or Abdominal Discomfort Genitourinary: No Symptoms Reported Musculoskeletal: No Symptoms Reported Vital Signs: Last Vital Signs Temp Pulse Resp BP Pulse Ox 98.3 F 98 H 16 112/80 97 04/30/20 14:00 04/30/20 14:00 04/30/20 14:00 04/30/20 14:00 04/30/20 10:00 Intake & Output 04/27/20 04/28/20 04/29/20 04/30/20 23:59 23:59 23:59 23:59 Intake Total 250 700 Balance 250 700 Weight 213 lb 9.6 oz Neck: Supple Negative JVD Respiratory: Clear to auscultation percussion Cardiovascular: S1 S2 Irregularly Irregular Gastrointestinal: Soft Benign Normal Bowel Sounds Ext: Negative Edema Labs: Troponin, BNP 04/29/20 04/30/20 21:45 06:00 Troponin I 0.05 0.04 CBC, BMP 04/30/20 06:00 04/30/20 06:00 Hepatic Panel Total Bilirubin 0.6 mg/dL (0.2-1) 04/30/20 06:00 AST 21 U/L (15-37) 04/30/20 06:00 ALT 32 U/L (13-61) 04/30/20 06:00 Alkaline Phosphatase 83 U/L (45-117) 04/30/20 06:00 Albumin 3.6 g/dl (3.4-5.0) 04/30/20 06:00 INR, PTT INR 1.00 (0.83-1.09) 04/29/20 10:15 Assessment/Plan ASSESSMENT: 1. Dizziness/lightheadedness- near syncope 2. CAD abnormal MPI study with history of demand ischemic injury angina pectoris 3. Diastolic LV dysfunction with clinical class 0 NYHA classification LV failure 4. Persistent AF [id number] score of 3-4 on no A/C declined- to consider MELITA closure device 5. HTN 6. DM 7. Hypercholesterolemia 8. Obstructive sleep apnea PLAN: 1. Continue Cardizem CD, dose titration as needed and as tolerated 2. Ideally patient should be on B-Palmira therapy unless it is absolutely contraindicated 3. Ideally patient should be on ACEI or ARB's therapy unless it is absolutely contraindicated 4. Ideally patient should be on A/C therapy with DOAC's considering the above noted [id number] score of 3-4 unless it is absolutely contraindicated 5. Continue ASA in the interim- other option is proceeding with MELITA closure device as noted above 6. Additional evaluation can be performed as outpatient Carmen Mobley MD
--- NOTE | 2020-04-30 15:54 | PN ---
Progress Note, Physician History of Present Illness: STABLE - Current Medication List Current Medications: Active Medications Aspirin (Ecotrin -) 81 mg PO DAILY [facility] Last Admin: 04/30/20 10:35 Dose: 81 mg Documented by: Diltiazem HCl (Cardizem Cd -) 120 mg PO DAILY [facility] Last Admin: 04/30/20 10:35 Dose: 120 mg Documented by: Heparin Sodium (Porcine) (Heparin -) 5,000 unit SQ BID [facility] Last Admin: 04/30/20 10:37 Dose: 5,000 unit Documented by: - Objective Vital Signs: Vital Signs Temperature 98.3 F 04/30/20 14:00 Pulse Rate 98 H 04/30/20 14:00 Respiratory Rate 16 04/30/20 14:00 Blood Pressure 112/80 04/30/20 14:00 O2 Sat by Pulse Oximetry (%) 97 04/30/20 10:00 Constitutional: Yes: No Distress HENT: Yes: Atraumatic Neck: Yes: Supple Cardiovascular: Yes: Regular Rate and Rhythm Respiratory: Yes: Rhonchi Gastrointestinal: Yes: Normal Bowel Sounds Extremities: Yes: WNL Neurological: Yes: Alert, Oriented Labs: CBC, BMP 04/30/20 06:00 04/30/20 06:00 INR, PTT INR 1.00 (0.83-1.09) 04/29/20 10:15 Problem List - Problems (1) CHF (congestive heart failure) Code(s): I50.9 - HEART FAILURE, UNSPECIFIED (2) HLD (hyperlipidemia) Code(s): E78.5 - HYPERLIPIDEMIA, UNSPECIFIED (3) Near syncope Code(s): R55 - SYNCOPE AND COLLAPSE (4) Paroxysmal A-fib Code(s): I48.0 - PAROXYSMAL ATRIAL FIBRILLATION (5) Asthma Code(s): J45.909 - UNSPECIFIED ASTHMA, UNCOMPLICATED Qualifiers: Asthma severity: mild intermittent Asthma complication type: uncomplicated (6) HTN (hypertension) Code(s): I10 - ESSENTIAL (PRIMARY) HYPERTENSION Qualifiers: Hypertension type: unspecified Qualified Code(s): I10 - Essential (primary) hypertension Assessment/Plan Assessment/Plan 1. Dizziness/lightheadedness- near syncope 2. CAD abnormal MPI study with history of demand ischemic injury angina pectoris 3. Diastolic LV dysfunction with clinical class 0 NYHA classification LV failure 4. Persistent AF 5. HTN 6. DM 7. Hypercholesterolemia 8. Obstructive sleep apnea COVERING FOR DR HARKINS TODAY
--- NOTE | 2020-04-30 19:01 | CONS ---
DATE OF CONSULTATION: 04/30/[address] Leigh. CHIEF COMPLAINT: Lightheadedness, near syncope, cardiovascular evaluation. This is a 60-year-old male with known history of coronary artery disease, history of demand ischemic injury, angina pectoris, diastolic left ventricular dysfunction with clinical class 0 [place] [employer] classification left ventricular failure, persistent atrial fibrillation, CHADS2-VASc score of 3-4, currently on no anticoagulation therapy, hypertensive cardiovascular disease, diabetes mellitus, hypercholesterolemia, obstructive sleep apnea, who presented to [facility] with dizziness, lightheadedness/near syncope. Patient did not report any preceding palpitations. Patient did not report any loss of consciousness. Patient denies any chest discomfort. Patient reports dyspnea with moderate physical exertion. Patient denies any orthopnea, paroxysmal nocturnal dyspnea, or peripheral edema. Patient reports fatigue and tiredness. PAST MEDICAL HISTORY: Coronary artery disease with history of demand ischemic injury, angina pectoris, diastolic left ventricular dysfunction with clinical class 0 [place] [employer] classification left ventricular failure, persistent atrial fibrillation, CHADS2-VASc score of 3-4, currently on no anticoagulation therapy (patient had declined therapy), hypertensive cardiovascular disease, diabetes mellitus, hypercholesterolemia, obstructive sleep apnea. SOCIAL HISTORY: Denies tobacco use. FAMILY HISTORY: Positive for coronary artery disease. ALLERGIES: None reported. MEDICAL THERAPY CURRENTLY: Includes Ecotrin 81 mg once a day, Cardizem CD 120 mg once a day, subcutaneous heparin 5000 units twice a day. REVIEW OF SYSTEMS: Head and Neck: Denies headache, photophobia, blurring of vision. Respiratory: No cough or sputum production. Cardiovascular: As noted above. Gastrointestinal: Denies nausea, vomiting, diarrhea, abdominal discomfort. Genitourinary: No symptoms reported. PHYSICAL EXAMINATION: Vital Signs: Blood pressure 112/80 mmHg, pulse rate is 90 beats per minute, irregularly irregular. Head and Neck: Pupils equal and reactive to light and accommodation. Extraocular muscles are intact. Anicteric sclerae. Negative JVD. No bruit appreciated. Chest: Clear to auscultation and percussion. Cardiovascular: S1 and S2 irregularly irregular. Abdomen: Soft, benign. Normoactive bowel sounds. Extremities: Negative edema. No calf tenderness. LABORATORY DATA: Troponin-I levels were noted. CBC revealed white cell count 8.1, hemoglobin 15.2, platelet count 204. Basic metabolic profile revealed sodium 142, potassium 4.2, BUN 18.6, creatinine 1.0, glucose 97. ASSESSMENT: 1. Dizziness, lightheadedness, near syncope. 2. Coronary artery disease with history of an abnormal myocardial perfusion imaging study, history of demand ischemic injury, angina pectoris. 3. Diastolic left ventricular dysfunction with clinical class 0 [place] [employer] classification left ventricular failure. 4. Persistent atrial fibrillation, CHADS2-VASc score of 3-4 on no anticoagulation therapy; patient declined therapy, to consider left atrial appendage closure device implantation. 5. Hypertension. 6. Diabetes mellitus. 7. Hypercholesterolemia. 8. Obstructive sleep apnea. RECOMMENDATION: 1. Continuation of Cardizem CD therapy, dose titration as needed and as tolerated. 2. Ideally, patient should be on beta-juliocesar therapy unless it is absolutely contraindicated. 3. Ideally, patient should be on CRISTIANE inhibitor or angiotensin receptor juliocesar therapy unless it is absolutely contraindicated. 4. Patient ideally should be anticoagulated with direct oral anticoagulants considering the above-noted CHADS-VASc score of 3-4 unless it is absolutely contraindicated. 5. Continue aspirin therapy in the interim. Other option is proceeding with left atrial appendage closure device implantation as noted above. 6. Additional evaluation/cardiovascular evaluation can be performed as outpatient. Thank you for your kind referral. SMITHA LANDRY M.D. [id number]
--- NOTE | 2020-05-01 06:40 | PN ---
Progress Note (short form) - Note Progress Note: Coverage for Dr. Nila Leigh Chief Complaint: Events noted, notes reviewed, resting in bed, denies any recurrent dizziness/lightheadedness, denies any chest discomfort or dyspnea, poor historian and denies any knowledge of having CAD angina pectoris and persistent AF- stated that nobody has informed him of above and A/C was never discussed History of Present Illness: Seen and examined on telemetry. Events noted, notes reviewed, resting in bed, denies any recurrent dizziness/lightheadedness, denies any chest discomfort or dyspnea, poor historian and denies any knowledge of having CAD angina pectoris and persistent AF- stated that nobody has informed him of above and A/C was never discussed Medications: Current Medications Generic Name Dose Route Start Last Admin Trade Name Freq PRN Reason Stop Dose Admin Aspirin 81 mg 04/30/20 10:00 04/30/20 10:35 Ecotrin - PO 81 mg DAILY JADYN Administration Diltiazem HCl 120 mg 04/29/20 21:45 04/30/20 10:35 Cardizem Cd - PO 120 mg DAILY JADYN Administration Heparin Sodium (Porcine) 5,000 unit 04/29/20 22:00 04/30/20 21:50 Heparin - SQ 5,000 unit BID JADYN Administration Review of Systems Constitutional: denies Chills or Fever Respiratory: denies: Dyspnea, Cough Cardiovascular: As noted above Gastrointestinal: denies Nausea, Vomiting, Diarrhea or Constipation or Abdominal Discomfort Genitourinary: No Symptoms Reported Musculoskeletal: No Symptoms Reported Vital Signs: Last Vital Signs Temp Pulse Resp BP Pulse Ox 97.6 F 68 16 136/69 97 05/01/20 02:00 05/01/20 05:26 05/01/20 05:26 05/01/20 05:26 05/01/20 05:26 Intake & Output 04/28/20 04/29/20 04/30/20 05/01/20 23:59 23:59 23:59 23:59 Intake Total 250 710 Balance 250 710 Weight 213 lb 9.6 oz Neck: Supple Negative JVD Respiratory: Clear to auscultation percussion Cardiovascular: S1 S2 Irregularly Irregular Gastrointestinal: Soft Benign Normal Bowel Sounds Ext: Negative Edema Labs: Troponin, BNP 04/30/20 06:00 Troponin I 0.04 CBC, BMP 04/30/20 06:00 04/30/20 06:00 Hepatic Panel Total Bilirubin 0.6 mg/dL (0.2-1) 04/30/20 06:00 AST 21 U/L (15-37) 04/30/20 06:00 ALT 32 U/L (13-61) 04/30/20 06:00 Alkaline Phosphatase 83 U/L (45-117) 04/30/20 06:00 Albumin 3.6 g/dl (3.4-5.0) 04/30/20 06:00 INR, PTT INR 1.00 (0.83-1.09) 04/29/20 10:15 Assessment/Plan ASSESSMENT: 1. Dizziness/lightheadedness- near syncope, etiology unclear not recurrent 2. CAD abnormal MPI study with history of demand ischemic injury angina pectoris 3. Diastolic LV dysfunction with clinical class 0 NYHA classification LV failure 4. Persistent AF [id number] score of 3-4 on no A/C declined- to consider MELITA closure device 5. HTN 6. DM 7. Hypercholesterolemia 8. Obstructive sleep apnea PLAN: 1. Continue Cardizem CD, dose titration as needed and as tolerated 2. Ideally patient should be on B-Palmira therapy unless it is absolutely contraindicated 3. Ideally patient should be on ACEI or ARB's therapy unless it is absolutely contraindicated 4. Ideally patient should be on A/C therapy with DOAC's considering the above noted [id number] score of 3-4 unless it is absolutely contraindicated 5. Continue ASA in the interim- other option is proceeding with MELITA closure device as noted above 6. Additional evaluation can be performed as outpatient- as noted above patient declines having any knowledge of the above noted co-morbidities Carmen Mobley MD
[2020-05-01] MEDS: ASPIRIN COATED 81 MG TABLET.EC PO SCH (09:02)
[2020-05-01] MEDS: HEPARIN NA (PORCINE) 5,000 UNITS/ML 1ML VIAL SQ SCH (09:02)
[2020-05-01 13:59] VITALS: BP 146/81; PULSE 91; TEMP 97.6
== END 2020-05-01 17:28 | disposition home or self-care (01) | DRG 204 ==
LOC: JER 09:41 → JERBED 11:09 → J4S 20:03 → OBSVTOIN 21:39
PROVIDERS: ADMIT Internal Medicine; ATTEND Internal Medicine
DX: R55 Syncope and collapse (principal); I11.0 Hypertensive heart disease with heart failure; I50.32 Chronic diastolic (congestive) heart failure; I48.0 Paroxysmal atrial fibrillation; Z79.01 Long term (current) use of anticoagulants; E78.5 Hyperlipidemia, unspecified; I25.10 Atherosclerotic heart disease of native coronary artery without angina pectoris; G47.33 Obstructive sleep apnea (adult) (pediatric); J45.20 Mild intermittent asthma, uncomplicated; E11.9 Type 2 diabetes mellitus without complications
CPT/HCPCS: 36415; 70450-TC; 71045-TC-FY; 80053; 81003; 82550; 82553; 83036; 83735; 84484; 85025; 85610; 85730; 87086; 93005; 93010; 99285-25; C9803; G0378; J1644; U0003

== ENCOUNTER 2020-09-30 15:45 | Emergency (ER) | payer OTHER ==
[2020-09-30 15:56] VITALS: TEMP 97.8; BMI 30.1
[2020-09-30 16:59] LABS: ALBUMIN 4.1 g/dl (3.4-5.0); BASO % 1.6 % (0-2.0); BILIRUBIN,TOTAL 1.1 mg/dl (0.2-1); CALCIUM 8.6 mg/dl (8.5-10); CREATININE 1.1 mg/dl (0.55-1.3); EOS % 0.9 % (0-4.5); HEMATOCRIT 53.9 % (35.4-49); HEMOGLOBIN 17.3 GM/dl (11.7-16.9); MCH 28.4 pg (25.7-33.7); MCHC 32.1 g/dl (32.0-35.9); MEAN CELL VOLUME 88.4 fl (80-96); MEAN PLT VOLUME 10.5 fl (7.5-11.1); MONO % 14.3 % (3.8-10.2); NEUT % 65.2 % (42.8-82.8); PLATELET COUNT 137 K/MM3 (134-434); POTASSIUM 3.9 mmol/L (3.5-5.1); RDW 14.3 % (11.9-15.9); TOT PROT 7.6 g/dl (6.4-8.2); WHITE BLOOD COUNT 5.7 K/mm3 (4.0-10.8)
[2020-09-30] MEDS ORDERED: ALBUTEROL SO4 2.5/IPRATROPIUM 0.5 INH SOL 3 ML VIAL.NEB. NEB ONE (17:21)
[2020-09-30] MEDS ORDERED: guaiFENesin/CODEINE 10 ML UNIT-DOSE CUPS PO ONE (18:12)
[2020-09-30] MEDS ORDERED: guaiFENesin/CODEINE 10 ML UNIT-DOSE CUPS ONE (18:15)
[2020-09-30 20:21] VITALS: BP 129/77; PULSE 75
[2020-09-30] MEDS ORDERED: DEXAMETHASONE 4 MG TABLET (FP) PO ONE (20:37)
[2020-09-30] MEDS ORDERED: DEXAMETHASONE 4 MG TABLET (FP) ONE (20:39)
== END 2020-09-30 21:12 | disposition home or self-care (01) ==
LOC: FER 15:45
PROC: 3E0F7GC Introduction of Other Therapeutic Substance into Respiratory Tract, Via Natural or Artificial Opening (ICD-10-PCS; principal; 2020-09-30)
DX: U07.1 COVID-19 (principal); J40 Bronchitis, not specified as acute or chronic
CPT/HCPCS: 36415; 71045-TC-FY; 80053; 82550; 82553; 83880; 84484; 85025; 85379; 93005; 99284-25; C9803; U0003

== ENCOUNTER 2020-10-05 17:42 | Inpatient (IN) | payer OTHER ==
[2020-10-05] MEDS ORDERED: ASPIRIN 81 MG CHEWABLE TABLETS PO ONE (18:29)
[2020-10-05] MEDS ORDERED: SODIUM CHLORIDE 1,000 ML IV SCH (18:45)
[2020-10-05] MEDS ORDERED: ASPIRIN 81 MG CHEWABLE TABLETS ONE (19:24)
[2020-10-05 21:31] LABS: BASO % 0.1 % (0-2.0); HEMATOCRIT 48.1 % (35.4-49); HEMOGLOBIN 15.6 GM/dL (11.7-16.9); LYMPH % 5.1 % (8-40); MCH 28.3 pg (25.7-33.7); MCHC 32.3 g/dl (32.0-35.9); MEAN CELL VOLUME 87.6 fl (80-96); MEAN PLT VOLUME 10.3 fl (7.5-11.1); MONO % 8.6 % (3.8-10.2); NEUT % 86.2 % (42.8-82.8); PLATELET COUNT 220 K/MM3 (134-434); RBC 5.49 M/mm3 (4.00-5.60); RDW 14.9 % (11.9-15.9); WHITE BLOOD COUNT 11.7 K/mm3 (4.0-10.0)
[2020-10-05 21:38] LABS: INR 1.07 (0.83-1.09); PROTHROMBIN TIME (PATIENT) 13.1 SEC (9.7-13.0)
[2020-10-05 21:41] LABS: ACTIVATED PTT 27.8 SECONDS (25.2-36.5)
[2020-10-05 22:00] LABS: POTASSIUM 3.9 mmol/L (3.5-5.1)
[2020-10-05 22:03] LABS: ALBUMIN 3.6 g/dl (3.4-5.0)
[2020-10-05 22:07] LABS: BILIRUBIN,TOTAL 0.5 mg/dL (0.2-1)
[2020-10-05] MEDS ORDERED: NITROGLYCERIN SUBLINGUAL 1/150 0.4 MG TAB SL ONE (22:07)
[2020-10-05 22:08] LABS: TOT PROT 7.4 g/dl (6.4-8.2)
[2020-10-05] MEDS ORDERED: ACETAMINOPHEN INJECTION 100 ML IVPB ONE (22:26)
[2020-10-06] MEDS: ACETAMINOPHEN 1000 MG/100 ML VIAL (NON FORMULARY) IVPB ONE ×2 (00:24→00:51)
[2020-10-06] MEDS ORDERED: APIXABAN 5 MG TABLET ONE (00:56)
[2020-10-06] MEDS ORDERED: CARVEDILOL 3.125 MG TABLET (FP) ONE (00:56)
[2020-10-06] MEDS: APIXABAN 5 MG TABLET PO SCH ×3 (01:01→21:31)
[2020-10-06] MEDS: CARVEDILOL 6.25 MG TABLET (FP) PO SCH ×3 (01:01→21:30)
[2020-10-06 03:33] VITALS: BMI 29.9
[2020-10-06 06:59] LABS: BASO % 0.3 % (0-2.0); HEMATOCRIT 51.4 % (35.4-49); HEMOGLOBIN 16.5 GM/dL (11.7-16.9); LYMPH % 8.9 % (8-40); MCH 28.3 pg (25.7-33.7); MEAN CELL VOLUME 88.3 fl (80-96); MEAN PLT VOLUME 10.4 fl (7.5-11.1); MONO % 9.3 % (3.8-10.2); NEUT % 81.5 % (42.8-82.8); PLATELET COUNT 232 K/MM3 (134-434); RBC 5.82 M/mm3 (4.00-5.60); RDW 15.2 % (11.9-15.9); WHITE BLOOD COUNT 14.6 K/mm3 (4.0-10.0)
[2020-10-06 07:30] LABS: ALBUMIN 3.5 g/dl (3.4-5.0); CALCIUM 9.1 mg/dL (8.5-10.1)
[2020-10-06 07:35] LABS: BILIRUBIN,TOTAL 0.9 mg/dL (0.2-1); TOT PROT 7.6 g/dl (6.4-8.2)
[2020-10-06 09:17] LABS: N-TERMINAL BNP 143.8 pg/ml (5-125)
[2020-10-06] MEDS ORDERED: DEXAMETHASONE SOD PHOSPHATE 4 MG/1 ML VIAL IVPUSH SCH (10:00)
[2020-10-06] MEDS: ZINC SULFATE 220 MG CAPSULE (FP) PO SCH ×2 (10:36→21:31)
[2020-10-06] MEDS: ASCORBIC ACID 500 MG TABLET (FP) PO SCH ×2 (10:36→21:30)
[2020-10-06] MEDS: CHOLECALCIFEROL (VIT D3) 1,000 UNIT (25 MCG) TABLET PO SCH (10:36)
[2020-10-06] MEDS: LISINOPRIL 5 MG TABLET PO SCH (10:36)
[2020-10-06] MEDS: ASPIRIN COATED 81 MG TABLET.EC PO SCH (10:38)
[2020-10-07 06:36] LABS: BASO % 0.2 % (0-2.0); HEMOGLOBIN 15.9 GM/dL (11.7-16.9); LYMPH % 8.1 % (8-40); MCHC 33.1 g/dl (32.0-35.9); MEAN CELL VOLUME 87.5 fl (80-96); MEAN PLT VOLUME 9.4 fl (7.5-11.1); MONO % 7.6 % (3.8-10.2); NEUT % 84.1 % (42.8-82.8); PLATELET COUNT 251 K/MM3 (134-434); RBC 5.48 M/mm3 (4.00-5.60); RDW 14.9 % (11.9-15.9); WHITE BLOOD COUNT 13.1 K/mm3 (4.0-10.0)
[2020-10-07 07:11] LABS: POTASSIUM 4.1 mmol/L (3.5-5.1)
[2020-10-07 07:13] LABS: ALBUMIN 3.3 g/dl (3.4-5.0); CALCIUM 9.4 mg/dL (8.5-10.1)
[2020-10-07 07:14] LABS: BLOOD UREA NITROGEN 16.4 mg/dL (7-18)
[2020-10-07 07:17] LABS: CREATININE 0.8 mg/dL (0.55-1.3)
[2020-10-07 07:18] LABS: BILIRUBIN,TOTAL 0.7 mg/dL (0.2-1)
[2020-10-07 09:34] LABS: ANISOCYTOSIS 0; MACROCYTOSIS 0; PLATELET ESTIMATE NORMAL
[2020-10-07] MEDS: ZINC SULFATE 220 MG CAPSULE (FP) PO SCH ×2 (10:05→22:04)
[2020-10-07] MEDS: ASCORBIC ACID 500 MG TABLET (FP) PO SCH ×2 (10:05→22:05)
[2020-10-07] MEDS: ASPIRIN COATED 81 MG TABLET.EC PO SCH (10:05)
[2020-10-07] MEDS: CHOLECALCIFEROL (VIT D3) 1,000 UNIT (25 MCG) TABLET PO SCH (10:05)
[2020-10-07] MEDS: APIXABAN 5 MG TABLET PO SCH ×2 (10:05→22:05)
[2020-10-07] MEDS: LISINOPRIL 5 MG TABLET PO SCH (10:05)
[2020-10-07] MEDS: CARVEDILOL 6.25 MG TABLET (FP) PO SCH ×2 (10:05→22:04)
[2020-10-07] MEDS ORDERED: ACETAMINOPHEN 325 MG TABLET (FP) PO PRN (21:42)
[2020-10-08 08:09] LABS: BASO % 0.1 % (0-2.0); EOS % 0.4 % (0-4.5); HEMATOCRIT 46.6 % (35.4-49); HEMOGLOBIN 15.4 GM/dL (11.7-16.9); LYMPH % 14.8 % (8-40); MCH 28.8 pg (25.7-33.7); MEAN CELL VOLUME 87.3 fl (80-96); MEAN PLT VOLUME 9.7 fl (7.5-11.1); MONO % 11.1 % (3.8-10.2); NEUT % 73.6 % (42.8-82.8); PLATELET COUNT 260 K/MM3 (134-434); RBC 5.33 M/mm3 (4.00-5.60); RDW 15.2 % (11.9-15.9); WHITE BLOOD COUNT 11.9 K/mm3 (4.0-10.0)
[2020-10-08 08:31] LABS: POTASSIUM 3.9 mmol/L (3.5-5.1)
[2020-10-08 08:43] LABS: BLOOD UREA NITROGEN 19.1 mg/dL (7-18); CALCIUM 8.8 mg/dL (8.5-10.1)
[2020-10-08 08:46] LABS: CREATININE 0.9 mg/dL (0.55-1.3)
[2020-10-08 08:47] LABS: BILIRUBIN,TOTAL 0.8 mg/dL (0.2-1); TOT PROT 6.4 g/dl (6.4-8.2)
[2020-10-08] MEDS ORDERED: PT OWN MED DRAWER 7, Y5N ONE (08:56)
[2020-10-08] MEDS: ASCORBIC ACID 500 MG TABLET (FP) PO SCH (09:08)
[2020-10-08] MEDS: ZINC SULFATE 220 MG CAPSULE (FP) PO SCH (09:08)
[2020-10-08] MEDS: APIXABAN 5 MG TABLET PO SCH (09:08)
[2020-10-08] MEDS: LISINOPRIL 5 MG TABLET PO SCH (09:08)
[2020-10-08] MEDS: CHOLECALCIFEROL (VIT D3) 1,000 UNIT (25 MCG) TABLET PO SCH (09:09)
[2020-10-08] MEDS: CARVEDILOL 6.25 MG TABLET (FP) PO SCH (09:09)
[2020-10-08] MEDS: ASPIRIN COATED 81 MG TABLET.EC PO SCH (09:09)
[2020-10-08 10:35] LABS: ANISOCYTOSIS 0; HELMET CELLS 0; HOWELL-JOLLY BODIES 0; MACROCYTOSIS 0; OVALOCYTE 0; PLATELET ESTIMATE NORMAL; ROULEAU 0; SICKELED CELLS 0; TARGET CELLS 0; TEAR DROP CELLS 0; TOXIC GRANULATION 0
[2020-10-08 17:48] VITALS: BP 158/83; PULSE 77; TEMP 97.7
== END 2020-10-08 20:00 | disposition home or self-care (01) | DRG 201 ==
LOC: JER 17:42 → JERBED 18:31 → J4S 10-06 02:59
PROVIDERS: ADMIT Internal Medicine; ATTEND Internal Medicine
DX: I48.0 Paroxysmal atrial fibrillation (principal); E78.5 Hyperlipidemia, unspecified; J45.909 Unspecified asthma, uncomplicated; R07.89 Other chest pain; I25.10 Atherosclerotic heart disease of native coronary artery without angina pectoris; U07.1 COVID-19; I50.32 Chronic diastolic (congestive) heart failure; I48.92 Unspecified atrial flutter; I42.9 Cardiomyopathy, unspecified; I11.0 Hypertensive heart disease with heart failure; E66.9 Obesity, unspecified; Z68.30 Body mass index [BMI] 30.0-30.9, adult; F41.9 Anxiety disorder, unspecified
CPT/HCPCS: 36415; 71045-TC-FY; 80053; 80061; 82550; 82553; 83036; 83721; 83880; 84443; 84484; 85025; 85379; 85610; 85730; 86769; 93005; 93010; 99285-25; C9803; J0131; U0003

== ENCOUNTER 2022-03-22 21:43 | Emergency (ER) | payer OTHER ==
[2022-03-22 22:17] VITALS: BP 167/85; PULSE 90; RESP 19; TEMP 98.2; BMI 30.1
[2022-03-22] MEDS ORDERED: predniSONE 20 MG TABLET (UD) PO ONE (23:44)
[2022-03-23] MEDS ORDERED: ALBUTEROL SO4 2.5/IPRATROPIUM 0.5 INH SOL 3 ML VIAL.NEB. NEB ONE (00:10)
[2022-03-23] MEDS: ALBUTEROL SO4 2.5/IPRATROPIUM 0.5 INH SOL 3 ML VIAL.NEB. NEB SCH ×2 (00:10→00:25)
[2022-03-23] MEDS ORDERED: predniSONE 20 MG TABLET (UD) ONE (00:11)
[2022-03-23] MEDS ORDERED: IBUPROFEN 600 MG TABLET (FP) PO ONE ×2 (01:44→01:51)
[2022-03-23 04:07] LABS: BF WBC & OTHER NUCLEATED CELLS 1910 /mm3
[2022-03-23 04:08] LABS: CRYSTALS,SYNOVIAL FLUID NEGATIVE
[2022-03-23 05:24] LABS: HEMATOCRIT 49.2 % (35.4-49); HEMOGLOBIN 15.8 GM/dL (11.7-16.9); MCH 28.7 pg (25.7-33.7); MCHC 32.1 g/dl (32.0-35.9); MEAN CELL VOLUME 89.5 fl (80-96); PLATELET COUNT 189 10^3/uL (134-434); RBC 5.49 M/mm3 (4.00-5.60); RDW 14.3 % (11.9-15.9); WHITE BLOOD COUNT 12.4 K/mm3 (4.0-10.0)
[2022-03-23 05:41] LABS: BLOOD UREA NITROGEN 17.8 mg/dL (7-18); CALCIUM 8.8 mg/dL (8.5-10.1)
[2022-03-23 05:42] LABS: ALBUMIN 3.9 g/dl (3.4-5.0)
[2022-03-23 05:44] LABS: CREATININE 1.1 mg/dL (0.55-1.3)
[2022-03-23 05:46] LABS: BILIRUBIN,TOTAL 0.6 mg/dL (0.2-1); TOT PROT 7.4 g/dl (6.4-8.2)
[2022-03-23 08:15] LABS: BODY FLUID MONOCYTE 4 %
[2022-03-23 09:41] LABS: ERYTHROCYTE SEDIMENTATION RATE 7 mm/hr (0-20)
[2022-03-23 10:12] LABS: ANISOCYTOSIS 1+; MACROCYTOSIS 1+; OVALOCYTE 1+
== END 2022-03-23 07:47 | disposition home or self-care (01) ==
LOC: JER 21:43
PROC: 3E0F7GC Introduction of Other Therapeutic Substance into Respiratory Tract, Via Natural or Artificial Opening (ICD-10-PCS; principal; 2022-03-22)
DX: M25.562 Pain in left knee (principal); J45.909 Unspecified asthma, uncomplicated
CPT/HCPCS: 36415; 73562-TC-LT-FY; 80053; 82945; 85025; 85651; 86140; 87070; 87075; 87205; 89060; 99284-25

== ENCOUNTER 2022-12-01 00:24 | Emergency (ER) | payer OTHER ==
[2022-12-01 00:36] VITALS: BP 137/94; PULSE 86; RESP 18; TEMP 98.1; BMI 33.6
[2022-12-01] MEDS ORDERED: KETOROLAC TROMETHAMINE 60 MG/2 ML VIAL IM ONE (01:19)
[2022-12-01] MEDS ORDERED: diazePAM 5 MG TABLET PO ONE (01:19)
[2022-12-01] MEDS ORDERED: diazePAM 5 MG TABLET ONE (01:41)
[2022-12-01] MEDS ORDERED: KETOROLAC TROMETHAMINE 60 MG/2 ML VIAL ONE (01:41)
== END 2022-12-01 05:35 | disposition home or self-care (01) ==
LOC: JER 00:24
PROC: 3E0233Z Introduction of Anti-inflammatory into Muscle, Percutaneous Approach (ICD-10-PCS; principal; 2022-12-01)
DX: M54.2 Cervicalgia (principal); S16.1XXA Strain of muscle, fascia and tendon at neck level, initial encounter; R51.9 Headache, unspecified; X58.XXXA Exposure to other specified factors, initial encounter
CPT/HCPCS: 70450-TC; 72125-TC; 99284-25

== ENCOUNTER 2022-12-28 11:52 | Observation (INO) | payer OTHER ==
[2022-12-28] MEDS ORDERED: ACETAMINOPHEN 1000 MG/100 ML BAG IVPB ONE (12:42)
[2022-12-28] MEDS ORDERED: ACETAMINOPHEN INJECTION 100 ML IVPB ONE (12:50)
[2022-12-28] MEDS ORDERED: METOCLOPRAMIDE HCL INJECTION 10 MG/2 ML VIAL IVPUSH ONE (13:00)
[2022-12-28] MEDS ORDERED: METOCLOPRAMIDE HCL INJECTION 10 MG/2 ML VIAL ONE (13:03)
[2022-12-28 13:05] LABS: BASO % 0.6 % (0-2.0); EOS % 3.6 % (0-4.5); HEMOGLOBIN 16.1 GM/dL (11.7-16.9); LYMPH % 23.1 % (8-40); MCH 28.6 pg (25.7-33.7); MCHC 32.3 g/dl (32.0-35.9); MEAN CELL VOLUME 88.7 fl (80-96); MEAN PLT VOLUME 10.5 fl (7.5-11.1); MONO % 7.9 % (3.8-10.2); NEUT % 64.8 % (42.8-82.8); PLATELET COUNT 159 10^3/uL (134-434); RBC 5.64 M/mm3 (4.00-5.60); RDW 13.8 % (11.9-15.9); WHITE BLOOD COUNT 6.8 K/mm3 (4.0-10.0)
[2022-12-28 13:08] LABS: INR 1.1 (0.83-1.09); PROTHROMBIN TIME (PATIENT) 12.7 SEC (9.7-13.0)
[2022-12-28 13:11] LABS: ACTIVATED PTT 40.9 SECONDS (25.2-36.5)
[2022-12-28 13:23] LABS: CHLORIDE 110 mmol/L (98-107); POTASSIUM 5.4 mmol/L (3.5-5.1); SODIUM 142 mmol/L (136-145)
[2022-12-28 13:25] LABS: ANION GAP 6 MMOL/L (8-16); CALCIUM 8.8 mg/dL (8.5-10.1); CO2 26 mmol/L (21-32)
[2022-12-28 13:26] LABS: ALBUMIN 3.7 g/dl (3.4-5.0)
[2022-12-28 13:27] LABS: BLOOD UREA NITROGEN 10.6 mg/dL (7-18); GLUCOSE,RANDOM 111 mg/dL (74-106)
[2022-12-28 13:29] LABS: SGOT/AST 44 U/L (15-37)
[2022-12-28 13:31] LABS: BILIRUBIN,TOTAL 0.8 mg/dL (0.2-1); CHOLESTEROL 153 mg/dL (50-200); LDL CHOLESTEROL (ONLY SJRH) 109 mg/dL (5-100); TOT PROT 7.2 g/dl (6.4-8.2)
[2022-12-28 13:33] LABS: ALK PHOS 73 U/L (45-117); HDL CHOLESTEROL 38 mg/dL (40-60)
[2022-12-28 13:37] LABS: SGPT/ALT 39 U/L (13-61)
[2022-12-28 13:52] LABS: PH,URINE 5.5 (5.0-8.0); URINE APPEARANCE CLEAR; URINE BILIRUBIN NEGATIVE (NEGATIVE); URINE COLOR YELLOW; URINE GLUCOSE (UA) NEGATIVE (NEGATIVE); URINE KETONE NEGATIVE (NEGATIVE); URINE LEUK ESTERASE NEGATIVE (NEGATIVE); URINE NITRITE NEGATIVE (NEGATIVE); URINE PROTEIN NEGATIVE (NEGATIVE); URINE UROBILINOGEN 0.2 mg/dL (0.2-1.0)
[2022-12-28 14:48] LABS: POTASSIUM 4.1 mmol/L (3.5-5.1)
[2022-12-28 14:49] LABS: ALBUMIN 3.7 g/dl (3.4-5.0); BLOOD UREA NITROGEN 10.6 mg/dL (7-18)
[2022-12-28 14:55] LABS: BILIRUBIN,TOTAL 0.6 mg/dL (0.2-1); TOT PROT 7.2 g/dl (6.4-8.2)
[2022-12-28 19:45] VITALS: BMI 31.4
[2022-12-29] MEDS: SODIUM CHLORIDE 1,000 ML IV SCH (05:25)
[2022-12-29 07:19] LABS: BASO % 0.6 % (0-2.0); EOS % 3.7 % (0-4.5); HEMATOCRIT 48.7 % (35.4-49); HEMOGLOBIN 16.2 GM/dL (11.7-16.9); LYMPH % 22.7 % (8-40); MCH 29.1 pg (25.7-33.7); MCHC 33.4 g/dl (32.0-35.9); MEAN CELL VOLUME 87.3 fl (80-96); MEAN PLT VOLUME 10.5 fl (7.5-11.1); MONO % 11.4 % (3.8-10.2); NEUT % 61.6 % (42.8-82.8); PLATELET COUNT 161 10^3/uL (134-434); RBC 5.57 M/mm3 (4.00-5.60); RDW 14.2 % (11.9-15.9); WHITE BLOOD COUNT 8.4 K/mm3 (4.0-10.0)
[2022-12-29 07:29] LABS: ALBUMIN 3.7 g/dl (3.4-5.0); BLOOD UREA NITROGEN 15.8 mg/dL (7-18); CALCIUM 8.6 mg/dL (8.5-10.1)
[2022-12-29 07:34] LABS: BILIRUBIN,TOTAL 0.6 mg/dL (0.2-1)
[2022-12-29] MEDS: ENOXAPARIN NA (PORCINE) 40 MG/0.4 ML DISP.SYRIN SQ SCH (09:27)
[2022-12-30] MEDS: SODIUM CHLORIDE 1,000 ML IV SCH ×2 (01:26→06:26)
[2022-12-30 03:33] VITALS: RESP 18
[2022-12-30] MEDS: ENOXAPARIN NA (PORCINE) 40 MG/0.4 ML DISP.SYRIN SQ SCH (09:38)
[2022-12-30] MEDS ORDERED: CARVEDILOL 6.25 MG TABLET (FP) PO SCH ×2 (10:00→22:00)
[2022-12-30] MEDS ORDERED: APIXABAN 5 MG TABLET PO SCH (10:00)
[2022-12-30] MEDS ORDERED: SACUBITRIL/VALSARTAN 24 MG-26 MG TABLET PO SCH (10:00)
[2022-12-30 14:41] VITALS: BP 140/86; PULSE 92; TEMP 97.6
== END 2022-12-30 17:38 | disposition home or self-care (01) ==
LOC: SUPCPDRO 11:52 → JER 11:52 → JERBED 13:09 → INTOOBSV 13:09 → J4S 18:29
PROVIDERS: ADMIT Internal Medicine; ATTEND Internal Medicine
PROC: 3E033NZ Introduction of Analgesics, Hypnotics, Sedatives into Peripheral Vein, Percutaneous Approach (ICD-10-PCS; principal; 2022-12-28)
PROC: 3E023GC Introduction of Other Therapeutic Substance into Muscle, Percutaneous Approach (ICD-10-PCS; 2022-12-28)
PROC: 3E033GC Introduction of Other Therapeutic Substance into Peripheral Vein, Percutaneous Approach (ICD-10-PCS; 2022-12-28)
DX: I11.0 Hypertensive heart disease with heart failure (principal); I50.30 Unspecified diastolic (congestive) heart failure; R06.02 Shortness of breath; E78.5 Hyperlipidemia, unspecified; J45.998 Other asthma; I11.9 Hypertensive heart disease without heart failure; I48.0 Paroxysmal atrial fibrillation; R42 Dizziness and giddiness; Z91.030 Bee allergy status
CPT/HCPCS: 0241U-QW; 36415; 70450-TC; 70551-TC; 80053; 80061; 81003; 82550; 82553; 82962; 83036; 84484; 85025; 85610; 85730; 93005; 93010; 93880-TC; 96372; 96374; 96375; 99285-25; G0378

== ENCOUNTER 2023-03-03 10:26 | Emergency (ER) | payer OTHER ==
[2023-03-03 10:38] VITALS: BP 139/93; PULSE 89; RESP 18; TEMP 97.7; BMI 32.5
[2023-03-03] MEDS ORDERED: ACETAMINOPHEN 500 MG TABLET (FP) PO ONE (12:40)
[2023-03-03] MEDS ORDERED: ACETAMINOPHEN 500 MG TABLET (FP) ONE (12:46)
== END 2023-03-03 12:52 | disposition home or self-care (01) ==
LOC: JERFT 10:26 → JER 10:26 → JERFT 12:52
DX: M79.671 Pain in right foot (principal); R22.41 Localized swelling, mass and lump, right lower limb; W22.8XXA Striking against or struck by other objects, initial encounter; Y92.008 Other place in unspecified non-institutional (private) residence as the place of occurrence of the external cause
CPT/HCPCS: 73630-TC-RT-FY; 99283-25

== ENCOUNTER 2023-09-05 22:48 | Emergency (ER) | payer MEDICARE, OTHER ==
[2023-09-05 22:56] VITALS: BP 144/87; PULSE 68; RESP 19; TEMP 98.5; BMI 32.1
[2023-09-06] MEDS ORDERED: ALBUTEROL SO4 2.5/IPRATROPIUM 0.5 INH SOL 3 ML VIAL.NEB. NEB ONE (00:08)
[2023-09-06] MEDS: ALBUTEROL SO4 2.5/IPRATROPIUM 0.5 INH SOL 3 ML VIAL.NEB. NEB ONE (00:10)
[2023-09-06] MEDS ORDERED: DEXAMETHASONE 4 MG TABLET (FP) ONE (00:24)
[2023-09-06] MEDS: DEXAMETHASONE 4 MG TABLET (FP) PO ONE (00:24)
== END 2023-09-06 00:58 | disposition home or self-care (01) ==
LOC: JER 22:48
PROC: 3E0F7GC Introduction of Other Therapeutic Substance into Respiratory Tract, Via Natural or Artificial Opening (ICD-10-PCS; principal; 2023-09-06)
DX: R05.9 Cough, unspecified (principal); J02.9 Acute pharyngitis, unspecified; R06.02 Shortness of breath; R07.89 Other chest pain; R09.81 Nasal congestion; J40 Bronchitis, not specified as acute or chronic; J10.1 Influenza due to other identified influenza virus with other respiratory manifestations; Z20.822 Contact with and (suspected) exposure to COVID-19
CPT/HCPCS: 0241U-QW; 71046-TC-FY; 94640; 99284-25

== ENCOUNTER 2024-11-19 19:51 | Emergency (ER) | payer OTHER ==
[2024-11-19 20:04] VITALS: TEMP 98.1; BMI 31.5
[2024-11-19] MEDS ORDERED: ACETAMINOPHEN 500 MG TABLET (FP) ONE (21:14)
[2024-11-19] MEDS: ACETAMINOPHEN 325 MG TABLET (FP) PO ONE (21:18)
[2024-11-19 21:45] VITALS: BP 176/99; PULSE 77; RESP 16
== END 2024-11-19 21:45 | disposition home or self-care (01) ==
LOC: JERFT 19:51
DX: S80.211A Abrasion, right knee, initial encounter (principal); W01.0XXA Fall on same level from slipping, tripping and stumbling without subsequent striking against object, initial encounter
CPT/HCPCS: 73130-TC-RT-FY; 73564-TC-RT-FY; 99284-25